=== PATIENT | male | born 1980 | race Caucasian/White ===

== ENCOUNTER 2017-03-23 12:58 | Inpatient (IN) | payer MEDICAID, OTHER ==
[~2017-03-23] VITALS: Ht 185.4 cm; Wt 147.9 kg
[~2017-03-23 12:58] MED LIST: FENO1TAB41; NOR10T
[2017-03-23 14:12] LABS: Basophils # (auto) 0 uL; Basophils % (auto) 0.4 % (0.0-2.0); Eosinophils # (auto) 0.1 uL; Hematocrit 44.8 % (41.0-53.0); Hemoglobin 14.3 g/dL (13.5-17.5); Mean Corpuscular Hemoglobin 28.3 pg (28.0-32.0); Mean Corpuscular Volume 88.4 fL (80.0-100.0); Monocytes # (auto) 0.9 uL; Monocytes % (auto) 7.8 % (0.0-12.0); Neutrophils # (auto) 8.9 uL; Neutrophils % (auto) 81.8 % (37.0-80.0); Nucleated Red Blood Cells % 0.1 %; Platelet Count (auto) 235 10^3/uL (140-450); Red Blood Cells 5.07 10^6/uL (4.5-5.90); Red Cell Distribution Width 14.3 % (11.8-14.3); White Blood Cell 10.9 10^3/uL (4.4-10.8)
[2017-03-23 14:25] LABS: Alanine Aminotransferase 36 U/L (16-61); Albumin 3.6 g/dL (3.4-5.0); Alkaline Phosphatase 69 U/L (45-117); Anion Gap 9 (5-15); Aspartate Aminotransferase 33 U/L (15-37); BUN/Creatinine Ratio 17.5; Bilirubin, Total 0.2 mg/dL (0.2-1.0); Blood Urea Nitrogen 70 mg/dL (7-18); Calcium 8.9 mg/dL (8.5-10.1); Carbon Dioxide 21 mmol/L (21-32); Chloride 101 mmol/L (98-107); GFR African American 22 mL/min; GFR Non-African American 18 mL/min; Glucose 142 mg/dL (74-106); Magnesium 2.6 mg/dL (1.6-2.6); Sodium 131 mmol/L (136-145); Total Protein 9.3 g/dL (6.4-8.2)
[2017-03-23 14:39] LABS: Potassium 6.7 mmol/L (3.5-5.1)
[2017-03-23] MEDS ORDERED: SODIUM CHLORIDE 0.9% 1,000 ML IV ONE (14:48)
[2017-03-23] MEDS ORDERED: ALBUTEROL SULF 2.5 MG/0.5ML(0.5%) NEB SOLN NEB ONE (15:00)
[2017-03-23] MEDS ORDERED: CALCIUM CHL 100MG/ML 1,000 MG in D5W 5% 100 ML IV ONE (15:00)
[2017-03-23] MEDS ORDERED: SODIUM BICARBONATE 8.4 % INJ 50ML VIAL IV ONE ×2 (15:00→23:00)
[2017-03-23] MEDS ORDERED: ONDANSETRON HCL 4 MG/2 ML VIAL ONE (19:30)
[2017-03-23] MEDS ORDERED: ONDANSETRON HCL 4 MG/2 ML VIAL IV ONE (19:45)
[2017-03-23] MEDS: SODIUM CHLORIDE 0.9% 1,000 ML IV SCH (22:26)
[2017-03-23] MEDS ORDERED: ONDANSETRON HCL 4 MG/2 ML VIAL IV PRN (22:30)
[2017-03-23] MEDS ORDERED: DEXTROSE (50%) 50ML SYRG IV PRN (22:30)
[2017-03-23] MEDS ORDERED: MORPHINE SULF INJ 2 MG/ML SYRINGE 1ML IV PRN (22:30)
[2017-03-23] MEDS ORDERED: TEMAZEPAM 15 MG CAP PO PRN (22:30)
[2017-03-23] MEDS ORDERED: ACETAMINOPHEN 325 MG TAB PO PRN (22:30)
[2017-03-23] MEDS ORDERED: NITROGLYCERIN 0.4 MG SL TAB SL PRN (22:30)
[2017-03-23] MEDS ORDERED: DEXTROSE (50%) 50ML SYRG IV ONE (23:00)
[2017-03-23] MEDS ORDERED: CALCIUM GLUC 4.65meq/50ml D5AE 50 ML IV ONE (23:00)
[2017-03-23] MEDS ORDERED: InsuLIN REG 1unit/0.01ml Soln (100units/ml) IV ONE (23:00)
[2017-03-23] MEDS ORDERED: SODIUM POLYSTYRENE SULF 15GM/60ML SUSP PO ONE (23:00)
[2017-03-23 23:09] LABS: Urine Bacteria FEW /hpf (None Seen); Urine Blood Negative /uL (Negative); Urine Hyaline Cast MOD /lpf (0 - 2); Urine Mucus FEW (None Seen); Urine WBC 2 /hpf (0 - 3)
[2017-03-24] MEDS: ACCU-CHEK COMFORT CURVE STRIP VI SCH ×4 (00:12→18:20)
[2017-03-24 04:14] LABS: Basophils # (auto) 0 uL; Basophils % (auto) 0.3 % (0.0-2.0); Eosinophils # (auto) 0.1 uL; Eosinophils % (auto) 1.7 % (0.0-7.0); Hematocrit 36.6 % (41.0-53.0); Hemoglobin 11.8 g/dL (13.5-17.5); Lymphocytes # (auto) 1.8 uL; Lymphocytes % (auto) 22.8 % (10.0-50.0); Mean Corpuscular Hemoglobin 28.1 pg (28.0-32.0); Mean Corpuscular Hgb Conc. 32.3 g/dL (32.0-36.0); Mean Corpuscular Volume 86.9 fL (80.0-100.0); Monocytes # (auto) 1.2 uL; Monocytes % (auto) 15.1 % (0.0-12.0); Neutrophils # (auto) 4.7 uL; Neutrophils % (auto) 60.1 % (37.0-80.0); Platelet Count (auto) 194 10^3/uL (140-450); Red Blood Cells 4.21 10^6/uL (4.5-5.90); Red Cell Distribution Width 14.4 % (11.8-14.3); White Blood Cell 7.8 10^3/uL (4.4-10.8)
[2017-03-24 04:24] LABS: Albumin 3.1 g/dL (3.4-5.0); BUN/Creatinine Ratio 16.8; Calcium 8.3 mg/dL (8.5-10.1)
[2017-03-24 04:34] LABS: Bilirubin, Total 0.2 mg/dL (0.2-1.0); Total Protein 7.9 g/dL (6.4-8.2)
[2017-03-24] MEDS ORDERED: ALBUTEROL SULF 2.5 MG/0.5ML(0.5%) NEB SOLN NEB ONE (05:15)
[2017-03-24] MEDS ORDERED: SODIUM POLYSTYRENE SULF 15GM/60ML SUSP PO ONE (05:15)
[2017-03-24] MEDS ORDERED: CALCIUM GLUC 4.65meq/50ml D5AE 50 ML IV ONE (05:15)
[2017-03-24] MEDS ORDERED: InsuLIN REG 1unit/0.01ml Soln (100units/ml) IV ONE (05:15)
[2017-03-24] MEDS ORDERED: DEXTROSE (50%) 50ML SYRG IV ONE (05:15)
[2017-03-24] MEDS ORDERED: SODIUM BICARBONATE 8.4 % INJ 50ML VIAL IV ONE (05:15)
[2017-03-24] MEDS: CLINDAMYCIN 600MG IV 50 ML IV SCH ×3 (06:00→21:41)
[2017-03-24] MEDS: InsuLIN REG 1unit/0.01ml Soln (100units/ml) SC SCH ×4 (06:00→18:21)
[2017-03-24] MEDS ORDERED: GEMF600T3 PO (08:29)
[2017-03-24] MEDS ORDERED: INSLISPI SC (08:29)
[2017-03-24] MEDS ORDERED: CARI-277 PO (08:29)
[2017-03-24] MEDS ORDERED: LISI-646 PO (08:29)
[2017-03-24] MEDS ORDERED: PREG150C PO (08:29)
[2017-03-24] MEDS ORDERED: HYDR12.56 PO (08:29)
[2017-03-24] MEDS ORDERED: INSU1INJ13 SC (08:29)
[2017-03-24] MEDS ORDERED: PANT40TA2 PO (08:29)
[2017-03-24] MEDS: PANTOPRAZOLE 40 MG TAB PO SCH (08:41)
[2017-03-24] MEDS: HEPARIN SODIUM (PORCINE) 5000 UNITS/ML 1ML VIAL SC SCH ×2 (08:43→22:00)
[2017-03-24] MEDS: HYDROcodone-ACET 5/325MG TAB PO PRN ×2 (08:44→21:54)
[2017-03-24] MEDS ORDERED: SODIUM CHLORIDE 0.9% 2,000 ML IV ONE ×2 (09:45→16:15)
[2017-03-24] MEDS: SODIUM CHLORIDE 0.9% 1,000 ML IV SCH (15:05)
[2017-03-24 18:05] VITALS: BP 96/56
[2017-03-24 18:51] LABS: BUN/Creatinine Ratio 18.5; Calcium 7.9 mg/dL (8.5-10.1); Potassium 4.9 mmol/L (3.5-5.1)
[2017-03-24] MEDS ORDERED: HEPARIN SODIUM (PORCINE) 5000 UNITS/ML 1ML VIAL ONE (21:24)
[2017-03-24 21:30] VITALS: BP 126/65
[2017-03-25] MEDS: InsuLIN REG 1unit/0.01ml Soln (100units/ml) SC SCH ×4 (00:13→17:30)
[2017-03-25] MEDS: ACCU-CHEK COMFORT CURVE STRIP VI SCH ×4 (00:13→17:30)
[2017-03-25] MEDS: SODIUM CHLORIDE 0.9% 1,000 ML IV SCH ×2 (01:06→12:20)
[2017-03-25 05:00] VITALS: BP 110/66
[2017-03-25] MEDS: CLINDAMYCIN 600MG IV 50 ML IV SCH ×2 (05:08→15:13)
[2017-03-25 07:12] LABS: Basophils # (auto) 0.1 uL; Eosinophils # (auto) 0.3 uL; Eosinophils % (auto) 5.7 % (0.0-7.0); Hematocrit 35.9 % (41.0-53.0); Hemoglobin 11.8 g/dL (13.5-17.5); Lymphocytes # (auto) 1.8 uL; Lymphocytes % (auto) 31.1 % (10.0-50.0); Mean Corpuscular Hemoglobin 28.3 pg (28.0-32.0); Mean Corpuscular Volume 85.8 fL (80.0-100.0); Monocytes # (auto) 0.7 uL; Monocytes % (auto) 11.6 % (0.0-12.0); Neutrophils # (auto) 2.9 uL; Neutrophils % (auto) 50.6 % (37.0-80.0); Platelet Count (auto) 192 10^3/uL (140-450); Red Blood Cells 4.18 10^6/uL (4.5-5.90); White Blood Cell 5.7 10^3/uL (4.4-10.8)
[2017-03-25 07:21] LABS: BUN/Creatinine Ratio 20.6; Calcium 8.3 mg/dL (8.5-10.1); Phosphorus 3.6 mg/dL (2.5-4.90); Potassium 4.2 mmol/L (3.5-5.1); Uric Acid 6.8 mg/dL (3.5-7.2)
[2017-03-25 07:58] LABS: Potassium 6.1 mmol/L (3.5-5.1)
[2017-03-25 09:00] VITALS: BP 139/83
[2017-03-25] MEDS: PANTOPRAZOLE 40 MG TAB PO SCH (10:03)
[2017-03-25] MEDS: HEPARIN SODIUM (PORCINE) 5000 UNITS/ML 1ML VIAL SC SCH (10:05)
[2017-03-25] MEDS: HYDROcodone-ACET 5/325MG TAB PO PRN (10:10)
[2017-03-25 13:00] VITALS: BP 131/84
[2017-03-25 17:00] VITALS: BP 128/75
== END 2017-03-25 20:18 | disposition home or self-care (01) | DRG 720 ==
LOC: EDBD 12:58 → ER 12:58 → TELE 12:59 → TELE-CENTR 03-24 14:10
PROVIDERS: ADMIT Nurse Practitioner; ATTEND Internal Medicine
DX: A41.9 Sepsis, unspecified organism (principal); N17.0 Acute kidney failure with tubular necrosis; E11.21 Type 2 diabetes mellitus with diabetic nephropathy; L89.894 Pressure ulcer of other site, stage 4; E11.40 Type 2 diabetes mellitus with diabetic neuropathy, unspecified; E11.22 Type 2 diabetes mellitus with diabetic chronic kidney disease; E11.51 Type 2 diabetes mellitus with diabetic peripheral angiopathy without gangrene; E11.621 Type 2 diabetes mellitus with foot ulcer; E87.5 Hyperkalemia; E66.01 Morbid (severe) obesity due to excess calories; E78.5 Hyperlipidemia, unspecified; I48.2 Chronic atrial fibrillation; N18.9 Chronic kidney disease, unspecified; Z88.5 Allergy status to narcotic agent; Z79.4 Long term (current) use of insulin; Z68.41 Body mass index [BMI] 40.0-44.9, adult
CPT/HCPCS: 36415; 70450; 71045; 73700; 76775; 80048; 80053; 81001; 82550; 82962; 83735; 84100; 84132; 84484; 84550; 85025; 86160; 87077; 87081; 87186; 87205; 93005; 94640; 94644; 94761; 96365; 96375; 96376; J0610; J1815; J2405; J3490; J7060

== ENCOUNTER 2018-11-21 10:52 | Emergency (ER) | payer MEDICAID ==
[~2018-11-21] VITALS: Ht 185.4 cm; Wt 140.6 kg
[~2018-11-21 10:52] MED LIST changes: +CARI-277 PO; -FENO1TAB41; +GEMF600T7 PO; +HYDR12.56 PO; +INSLISPI SC; +INSU1INJ13 SC; +LISI-646 PO; +PANT40TA2 PO; +PREG150C PO
[2018-11-21 11:31] LABS: Basophils # (auto) 0.3 uL; Basophils % (auto) 2.5 % (0.0-2.0); Eosinophils # (auto) 0.3 uL; Eosinophils % (auto) 2.9 % (0.0-7.0); Hematocrit 42.3 % (41.0-53.0); Lymphocytes # (auto) 2.1 uL; Lymphocytes % (auto) 18.6 % (10.0-50.0); Mean Corpuscular Hemoglobin 28.8 pg (28.0-32.0); Mean Corpuscular Hgb Conc. 33.2 g/dL (32.0-36.0); Mean Corpuscular Volume 86.8 fL (80.0-100.0); Monocytes # (auto) 0.7 uL; Monocytes % (auto) 6.6 % (0.0-12.0); Neutrophils # (auto) 7.7 uL; Neutrophils % (auto) 69.4 % (37.0-80.0); Platelet Count (auto) 347 10^3/uL (140-450); Red Blood Cells 4.87 10^6/uL (4.5-5.90); Red Cell Distribution Width 14.2 % (11.8-14.3); White Blood Cell 11.2 10^3/uL (4.4-10.8)
[2018-11-21 11:47] LABS: Alanine Aminotransferase 27 U/L (16-61); Albumin 3.1 g/dL (3.4-5.0); Anion Gap 10 (5-15); Blood Urea Nitrogen 37 mg/dL (7-18); Calcium 8.4 mg/dL (8.5-10.1); Carbon Dioxide 20 mmol/L (21-32); Chloride 109 mmol/L (98-107); Glucose 140 mg/dL (74-106); Sodium 139 mmol/L (136-145)
[2018-11-21 11:51] LABS: Alkaline Phosphatase 70 U/L (45-117); Aspartate Aminotransferase 20 U/L (15-37); BUN/Creatinine Ratio 15.5; Bilirubin, Total 0.2 mg/dL (0.2-1.0); GFR African American 40 mL/min; GFR Non-African American 33 mL/min; Total Protein 7.8 g/dL (6.4-8.2)
[2018-11-21] MEDS ORDERED: SODIUM CHLORIDE 0.9% 1,000 ML IVB ONE (13:12)
[2018-11-21 16:00] VITALS: BP 158/74
== END 2018-11-21 16:16 | disposition home or self-care (01) ==
LOC: EDBD 10:52 → ER 10:52
DX: R42 Dizziness and giddiness (principal); E11.22 Type 2 diabetes mellitus with diabetic chronic kidney disease; N18.3 Chronic kidney disease, stage 3 (moderate); E78.5 Hyperlipidemia, unspecified
CPT/HCPCS: 36415; 70450; 71046; 80053; 84484; 85025; 93005; 94761; 96360; 99284; J7030

== ENCOUNTER 2019-07-14 23:16 | Inpatient (IN) | payer MEDICAID ==
[~2019-07-14] VITALS: Ht 185.4 cm; Wt 114.4 kg
[2019-07-14] MEDS ORDERED: ACCU-CHEK COMFORT CURVE STRIP VI ONE (23:45)
[2019-07-15] MEDS ORDERED: ACETAMINOPHEN 325 MG TAB PO ONE (01:45)
[2019-07-15] MEDS ORDERED: ONDANSETRON HCL 4 MG/2 ML VIAL IV ONE (01:45)
[2019-07-15] MEDS ORDERED: MORPHINE SULFATE 4 MG/ML SYR/VIAL IV ONE (01:45)
[2019-07-15] MEDS ORDERED: levoFLOXacin 750MG 150 ML IV ONE (01:45)
[2019-07-15] MEDS ORDERED: SODIUM CHLORIDE 0.9% 1,000 ML IV ONE (01:45)
[2019-07-15 01:48] LABS: Basophils # (auto) 0.1 10 ^3/uL (0-0.2); Basophils % (auto) 0.7 % (0.0-2.0); Eosinophils # (auto) 0.1 10 ^3/uL (0-0.8); Eosinophils % (auto) 0.6 % (0.0-7.0); Lymphocytes # (auto) 1.8 10 ^3/uL (0.4-5.4); Lymphocytes % (auto) 12.6 % (10.0-50.0); Mean Corpuscular Hemoglobin 29.1 pg (28.0-32.0); Mean Corpuscular Hgb Conc. 33.3 g/dL (32.0-36.0); Mean Corpuscular Volume 87.3 fL (80.0-100.0); Monocytes # (auto) 1.4 10 ^3/uL (0-1.3); Monocytes % (auto) 9.9 % (0.0-12.0); Neutrophils # (auto) 11.1 10 ^3/uL (1.6-8.6); Neutrophils % (auto) 76.2 % (37.0-80.0); Platelet Count (auto) 286 10^3/uL (140-450); Red Blood Cells 4.46 10^6/uL (4.5-5.90); Red Cell Distribution Width 12.9 % (11.8-14.3); White Blood Cell 14.6 10^3/uL (4.4-10.8)
[2019-07-15 02:05] LABS: INR 1.03 (0.9-1.15); Partial Thromboplastin Time 31.9 sec (23.64-32.05)
[2019-07-15 02:07] LABS: Albumin 2.8 g/dL (3.4-5.0); Calcium 8.7 mg/dL (8.5-10.1); Potassium 4.2 mmol/L (3.5-5.1)
[2019-07-15 02:16] LABS: BUN/Creatinine Ratio 18.1
[2019-07-15 02:27] LABS: Bilirubin, Total 0.5 mg/dL (0.2-1.0); Total Protein 7.9 g/dL (6.4-8.2)
[2019-07-15] MEDS ORDERED: HYDROmorphone HCL 2 MG/ML VL IV ONE (05:00)
[2019-07-15] MEDS ORDERED: SODIUM CHLORIDE 0.9% 1,000 ML IV SCH (05:25)
[2019-07-15] MEDS ORDERED: CARISOPRODOL 350 MG TAB PO PRN (05:30)
[2019-07-15 05:52] VITALS: BP 125/76
[2019-07-15 05:56] LABS: Magnesium 2.4 mg/dL (1.6-2.6)
[2019-07-15] MEDS ORDERED: MORPHINE SULF INJ 2 MG/ML SYRINGE 1ML IV PRN (06:00)
[2019-07-15] MEDS ORDERED: NITROGLYCERIN 0.4 MG SL TAB SL PRN (06:00)
[2019-07-15] MEDS ORDERED: ALBUTEROL SULF HFA 90MCG INH 200DOSE IN SCH (06:00)
[2019-07-15 06:05] LABS: CRP High Sensitivity 16.5 mg/dL (< 0.3)
[2019-07-15 07:00] VITALS: BP 127/76
[2019-07-15 08:00] VITALS: BP 121/76
[2019-07-15] MEDS ORDERED: ATOR10TA52 PO (09:17)
[2019-07-15] MEDS ORDERED: CITA10SO6 PO (09:17)
[2019-07-15] MEDS ORDERED: MORP1TAB12 PO (09:17)
[2019-07-15] MEDS ORDERED: INSU100I2 SC (09:17)
[2019-07-15] MEDS ORDERED: LISINOPRIL 5 MG TAB PO SCH (10:00)
[2019-07-15] MEDS ORDERED: HCTZ 25 MG TAB PO SCH (10:00)
[2019-07-15] MEDS: AZITHROMYCIN 500MG/ 250ML 250 ML IV SCH (10:10)
[2019-07-15] MEDS: ASCORBIC ACID 1,000 MG TAB PO SCH (10:11)
[2019-07-15] MEDS: PANTOPRAZOLE 40 MG TAB PO SCH (10:11)
[2019-07-15] MEDS: ZINC SULFATE 220mg CAP or TAB PO SCH (10:11)
[2019-07-15] MEDS: CHOLECALCIFEROL (VITD3) 1,000IU=25mCg TAB PO SCH (10:11)
[2019-07-15] MEDS: GEMFIBROZIL 600 MG TAB PO SCH ×2 (10:11→21:55)
[2019-07-15] MEDS: HYDROcodone-ACET 10/325MG TAB PO PRN ×2 (11:40→17:51)
[2019-07-15 13:00] VITALS: BP 116/76
[2019-07-15] MEDS ORDERED: DEXTROSE (50%) 50ML SYRG IV PRN (14:30)
[2019-07-15] MEDS ORDERED: VANCOMYCIN PER PHARMACY 0 MG IV SCH (14:30)
[2019-07-15] MEDS: SODIUM CHLORIDE 0.9% 1,000 ML IV SCH (14:40)
[2019-07-15] MEDS: VANCOMYCIN 1GM/250ML 250 ML IV SCH (16:52)
[2019-07-15] MEDS: ACCU-CHEK COMFORT CURVE STRIP VI SCH ×2 (16:53→22:16)
[2019-07-15] MEDS: InsuLIN REG 1unit/0.01ml Soln (100units/ml) SC SCH ×2 (16:53→22:37)
[2019-07-15 17:00] VITALS: BP_SYST 118; BP_SYST 135; BP_DIAS 83; BP_DIAS 87
[2019-07-15 20:00] VITALS: BP 114/68
[2019-07-15] MEDS: PIPERACILLIN-TAZOB 3.375GM 100 ML IV SCH (21:55)
[2019-07-15] MEDS: MORPHINE SULF 15mg ER tab PO SCH (22:00)
[2019-07-16] VITALS: BP 142/80
[2019-07-16] MEDS: SODIUM CHLORIDE 0.9% 1,000 ML IV SCH ×2 (03:22→18:01)
[2019-07-16 04:00] VITALS: BP 129/67
[2019-07-16] MEDS: VANCOMYCIN 1GM/250ML 250 ML IV SCH ×2 (04:37→17:58)
[2019-07-16] MEDS: PIPERACILLIN-TAZOB 3.375GM 100 ML IV SCH ×3 (05:55→22:19)
[2019-07-16] MEDS: InsuLIN REG 1unit/0.01ml Soln (100units/ml) SC SCH ×3 (06:16→18:02)
[2019-07-16] MEDS: ACCU-CHEK COMFORT CURVE STRIP VI SCH ×4 (06:25→22:19)
[2019-07-16 07:07] LABS: Basophils # (auto) 0 10 ^3/uL (0-0.2); Basophils % (auto) 0.4 % (0.0-2.0); Eosinophils # (auto) 0.3 10 ^3/uL (0-0.8); Eosinophils % (auto) 2.2 % (0.0-7.0); Hematocrit 36.7 % (41.0-53.0); Hemoglobin 12.1 g/dL (13.5-17.5); Lymphocytes # (auto) 1.2 10 ^3/uL (0.4-5.4); Lymphocytes % (auto) 9.2 % (10.0-50.0); Mean Corpuscular Hemoglobin 28.8 pg (28.0-32.0); Mean Corpuscular Hgb Conc. 33.1 g/dL (32.0-36.0); Monocytes # (auto) 1.1 10 ^3/uL (0-1.3); Monocytes % (auto) 8.4 % (0.0-12.0); Neutrophils # (auto) 10.2 10 ^3/uL (1.6-8.6); Neutrophils % (auto) 79.8 % (37.0-80.0); Nucleated Red Blood Cells % 0.1 %; Platelet Count (auto) 289 10^3/uL (140-450); Red Blood Cells 4.22 10^6/uL (4.5-5.90); Red Cell Distribution Width 13.3 % (11.8-14.3); White Blood Cell 12.8 10^3/uL (4.4-10.8)
[2019-07-16 07:28] LABS: Albumin 2.2 g/dL (3.4-5.0); BUN/Creatinine Ratio 18.5; Calcium 8.3 mg/dL (8.5-10.1); Potassium 4.1 mmol/L (3.5-5.1)
[2019-07-16 07:31] LABS: Bilirubin, Total 0.5 mg/dL (0.2-1.0); Total Protein 6.9 g/dL (6.4-8.2)
[2019-07-16] MEDS: GEMFIBROZIL 600 MG TAB PO SCH (09:41)
[2019-07-16] MEDS: ZINC SULFATE 220mg CAP or TAB PO SCH (09:41)
[2019-07-16] MEDS: AZITHROMYCIN 500MG/ 250ML 250 ML IV SCH (09:41)
[2019-07-16] MEDS: CHOLECALCIFEROL (VITD3) 1,000IU=25mCg TAB PO SCH (09:42)
[2019-07-16] MEDS: ASCORBIC ACID 1,000 MG TAB PO SCH (09:42)
[2019-07-16] MEDS: PANTOPRAZOLE 40 MG TAB PO SCH (09:42)
[2019-07-16] MEDS: MORPHINE SULF 15mg ER tab PO SCH ×2 (09:42→22:19)
[2019-07-16 12:53] VITALS: BP 115/68
[2019-07-16 15:56] LABS: Urine Amorphous Crystal FEW /hpf (None Seen); Urine Bacteria NONE SEEN /hpf (None Seen); Urine Blood 1+ /uL (Negative); Urine Specific Gravity 1.024 (1.001-1.035); Urine WBC 7 /hpf (0 - 3)
[2019-07-16 17:00] VITALS: BP 126/71
[2019-07-16] MEDS: HYDROcodone-ACET 10/325MG TAB PO PRN (17:58)
[2019-07-16 22:00] VITALS: BP 135/71
[2019-07-17] MEDS: InsuLIN REG 1unit/0.01ml Soln (100units/ml) SC SCH ×5 (00:33→22:15)
[2019-07-17 05:00] VITALS: BP 106/55
[2019-07-17] MEDS: VANCOMYCIN 1GM/250ML 250 ML IV SCH (05:10)
[2019-07-17 06:05] LABS: Basophils # (auto) 0.2 10 ^3/uL (0-0.2); Basophils % (auto) 1.1 % (0.0-2.0); Eosinophils # (auto) 0.5 10 ^3/uL (0-0.8); Eosinophils % (auto) 3.3 % (0.0-7.0); Hematocrit 36.5 % (41.0-53.0); Hemoglobin 12.1 g/dL (13.5-17.5); Lymphocytes # (auto) 1.8 10 ^3/uL (0.4-5.4); Lymphocytes % (auto) 12.9 % (10.0-50.0); Mean Corpuscular Hemoglobin 29.4 pg (28.0-32.0); Mean Corpuscular Hgb Conc. 33.2 g/dL (32.0-36.0); Mean Corpuscular Volume 88.7 fL (80.0-100.0); Monocytes # (auto) 1.2 10 ^3/uL (0-1.3); Monocytes % (auto) 8.7 % (0.0-12.0); Neutrophils # (auto) 10.1 10 ^3/uL (1.6-8.6); Platelet Count (auto) 350 10^3/uL (140-450); Red Blood Cells 4.11 10^6/uL (4.5-5.90); Red Cell Distribution Width 13.2 % (11.8-14.3); White Blood Cell 13.7 10^3/uL (4.4-10.8)
[2019-07-17 06:28] LABS: BUN/Creatinine Ratio 15.5; Calcium 8.6 mg/dL (8.5-10.1); Potassium 3.9 mmol/L (3.5-5.1)
[2019-07-17] MEDS: ACCU-CHEK COMFORT CURVE STRIP VI SCH ×4 (06:30→22:14)
[2019-07-17] MEDS: PIPERACILLIN-TAZOB 3.375GM 100 ML IV SCH ×3 (06:30→22:00)
[2019-07-17] MEDS: SODIUM CHLORIDE 0.9% 1,000 ML IV SCH ×2 (06:31→20:12)
[2019-07-17 08:09] VITALS: BP 125/78
[2019-07-17 08:50] VITALS: BP 125/78
[2019-07-17] MEDS: PANTOPRAZOLE 40 MG TAB PO SCH (09:36)
[2019-07-17] MEDS: MORPHINE SULF 15mg ER tab PO SCH ×2 (09:37→22:13)
[2019-07-17] MEDS: ZINC SULFATE 220mg CAP or TAB PO SCH (09:37)
[2019-07-17] MEDS: ASCORBIC ACID 1,000 MG TAB PO SCH (09:37)
[2019-07-17 13:00] VITALS: BP 123/75
[2019-07-17 17:00] VITALS: BP 134/76
[2019-07-17] MEDS: HYDROcodone-ACET 10/325MG TAB PO PRN (18:06)
[2019-07-17 22:00] VITALS: BP 141/84
[2019-07-17] MEDS: DAKINS QUARTER STR 0.125% (NaHypochlorite) 473 ML TOPICAL SOL TOP SCH (22:00)
[2019-07-17] MEDS: LINEZOLID 600MG/300ML 300 ML IV SCH (22:12)
[2019-07-18 05:00] VITALS: BP 144/88
[2019-07-18] MEDS: PIPERACILLIN-TAZOB 3.375GM 100 ML IV SCH ×3 (06:08→22:00)
[2019-07-18] MEDS: ACCU-CHEK COMFORT CURVE STRIP VI SCH ×4 (06:17→22:00)
[2019-07-18] MEDS: InsuLIN REG 1unit/0.01ml Soln (100units/ml) SC SCH ×4 (06:18→22:02)
[2019-07-18 06:33] LABS: Basophils # (auto) 0.1 10 ^3/uL (0-0.2); Basophils % (auto) 1.3 % (0.0-2.0); Eosinophils # (auto) 0.6 10 ^3/uL (0-0.8); Eosinophils % (auto) 5.4 % (0.0-7.0); Hematocrit 35.6 % (41.0-53.0); Hemoglobin 11.5 g/dL (13.5-17.5); Lymphocytes # (auto) 1.4 10 ^3/uL (0.4-5.4); Mean Corpuscular Hemoglobin 28.6 pg (28.0-32.0); Mean Corpuscular Hgb Conc. 32.4 g/dL (32.0-36.0); Mean Corpuscular Volume 88.4 fL (80.0-100.0); Monocytes # (auto) 0.8 10 ^3/uL (0-1.3); Monocytes % (auto) 7.2 % (0.0-12.0); Neutrophils % (auto) 73.1 % (37.0-80.0); Platelet Count (auto) 364 10^3/uL (140-450); Red Blood Cells 4.03 10^6/uL (4.5-5.90); Red Cell Distribution Width 13.2 % (11.8-14.3)
[2019-07-18 06:53] LABS: Calcium 8.3 mg/dL (8.5-10.1); Magnesium 2.4 mg/dL (1.6-2.6)
[2019-07-18 06:57] LABS: BUN/Creatinine Ratio 16.5
[2019-07-18 08:17] VITALS: BP 122/73
[2019-07-18 08:25] VITALS: BP 122/73
[2019-07-18] MEDS: SODIUM CHLORIDE 0.9% 1,000 ML IV SCH ×2 (09:14→13:10)
[2019-07-18] MEDS: DAKINS QUARTER STR 0.125% (NaHypochlorite) 473 ML TOPICAL SOL TOP SCH ×2 (10:00→22:00)
[2019-07-18] MEDS: MORPHINE SULF 15mg ER tab PO SCH ×2 (10:28→22:00)
[2019-07-18] MEDS: LINEZOLID 600MG/300ML 300 ML IV SCH ×2 (10:28→22:00)
[2019-07-18] MEDS: ASCORBIC ACID 1,000 MG TAB PO SCH (10:29)
[2019-07-18] MEDS: PANTOPRAZOLE 40 MG TAB PO SCH (10:29)
[2019-07-18 12:30] VITALS: BP 137/77
[2019-07-18 17:22] VITALS: BP 143/86
[2019-07-18 22:00] VITALS: BP 140/72
[2019-07-19] MEDS: SODIUM CHLORIDE 0.9% 1,000 ML IV SCH ×2 (04:39→21:50)
[2019-07-19 05:16] VITALS: BP 137/77
[2019-07-19 05:50] LABS: Basophils # (auto) 0.1 10 ^3/uL (0-0.2); Basophils % (auto) 0.8 % (0.0-2.0); Eosinophils # (auto) 0.5 10 ^3/uL (0-0.8); Eosinophils % (auto) 4.7 % (0.0-7.0); Hematocrit 40.1 % (41.0-53.0); Hemoglobin 12.7 g/dL (13.5-17.5); Lymphocytes # (auto) 1.9 10 ^3/uL (0.4-5.4); Lymphocytes % (auto) 17.7 % (10.0-50.0); Mean Corpuscular Hemoglobin 29.2 pg (28.0-32.0); Mean Corpuscular Hgb Conc. 31.7 g/dL (32.0-36.0); Mean Corpuscular Volume 92.1 fL (80.0-100.0); Monocytes # (auto) 0.6 10 ^3/uL (0-1.3); Monocytes % (auto) 6.1 % (0.0-12.0); Neutrophils # (auto) 7.4 10 ^3/uL (1.6-8.6); Neutrophils % (auto) 70.7 % (37.0-80.0); Platelet Count (auto) 393 10^3/uL (140-450); Red Blood Cells 4.35 10^6/uL (4.5-5.90); Red Cell Distribution Width 13.3 % (11.8-14.3); White Blood Cell 10.5 10^3/uL (4.4-10.8)
[2019-07-19 05:59] LABS: Albumin 2.2 g/dL (3.4-5.0); Potassium 4.2 mmol/L (3.5-5.1)
[2019-07-19 06:03] LABS: BUN/Creatinine Ratio 11.1; Bilirubin, Total 0.3 mg/dL (0.2-1.0); Total Protein 6.9 g/dL (6.4-8.2)
[2019-07-19] MEDS: PIPERACILLIN-TAZOB 3.375GM 100 ML IV SCH (06:11)
[2019-07-19] MEDS: ACCU-CHEK COMFORT CURVE STRIP VI SCH ×4 (06:40→22:00)
[2019-07-19] MEDS: InsuLIN REG 1unit/0.01ml Soln (100units/ml) SC SCH ×4 (06:42→22:00)
[2019-07-19 09:00] VITALS: BP 144/81
[2019-07-19] MEDS: LINEZOLID 600MG/300ML 300 ML IV SCH ×2 (09:58→22:23)
[2019-07-19] MEDS: MORPHINE SULF 15mg ER tab PO SCH ×2 (09:58→22:00)
[2019-07-19] MEDS: PANTOPRAZOLE 40 MG TAB PO SCH (09:58)
[2019-07-19] MEDS: DAKINS QUARTER STR 0.125% (NaHypochlorite) 473 ML TOPICAL SOL TOP SCH ×2 (09:59→22:00)
[2019-07-19] MEDS: ASCORBIC ACID 1,000 MG TAB PO SCH (09:59)
[2019-07-19] MEDS ORDERED: LIDOCAINE 1% HCL (LOCAL ANESTH.) INJ 20ML MDV ONE (12:24)
[2019-07-19] MEDS ORDERED: BUPIVACAINE HCL 50 ML ONE (12:25)
[2019-07-19] MEDS ORDERED: METOCLOPRAMIDE HCL 5MG/ml INJ 2ml VIAL IV PRN (12:30)
[2019-07-19] MEDS ORDERED: MORPHINE SULFATE 4 MG/ML SYR/VIAL IV PRN (12:30)
[2019-07-19] MEDS ORDERED: ACCU-CHEK COMFORT CURVE STRIP VI ONE (12:30)
[2019-07-19] MEDS ORDERED: fentaNYL CITRATE 100 MCG/2 ML VL IV PRN (12:30)
[2019-07-19] MEDS ORDERED: PROPOFOL 10 MG/ML 20 ML IV ONE (12:33)
[2019-07-19] MEDS ORDERED: fentaNYL CITRATE 100 MCG/2 ML VL ONE (12:33)
[2019-07-19] MEDS ORDERED: MIDAZOLAM HCL 1MG/1ML-2 ML VIAL ONE (12:33)
[2019-07-19] MEDS ORDERED: SODIUM CHLORIDE LOCK 10 ML ONE (12:33)
[2019-07-19] MEDS ORDERED: ONDANSETRON HCL 4 MG/2 ML VIAL ONE (12:33)
[2019-07-19] MEDS ORDERED: ceFAZolin 1GM/50ML 100 ML IV ONE (12:46)
[2019-07-19 16:45] VITALS: BP 147/52
[2019-07-19] MEDS: MEPERIDINE HCL (25 MG/ML) 1ML VIAL IM PRN ×2 (17:55→22:15)
[2019-07-19 22:12] VITALS: BP 150/87
[2019-07-20] MEDS: MEPERIDINE HCL (25 MG/ML) 1ML VIAL IM PRN ×6 (02:10→23:49)
[2019-07-20 05:06] VITALS: BP 159/94
[2019-07-20 06:04] LABS: Basophils # (auto) 0.1 10 ^3/uL (0-0.2); Basophils % (auto) 1.2 % (0.0-2.0); Eosinophils # (auto) 0.5 10 ^3/uL (0-0.8); Eosinophils % (auto) 6.5 % (0.0-7.0); Hematocrit 37.1 % (41.0-53.0); Hemoglobin 12.4 g/dL (13.5-17.5); Lymphocytes # (auto) 1.7 10 ^3/uL (0.4-5.4); Lymphocytes % (auto) 20.7 % (10.0-50.0); Mean Corpuscular Hemoglobin 29.2 pg (28.0-32.0); Mean Corpuscular Hgb Conc. 33.5 g/dL (32.0-36.0); Mean Corpuscular Volume 86.9 fL (80.0-100.0); Monocytes # (auto) 0.6 10 ^3/uL (0-1.3); Monocytes % (auto) 7.4 % (0.0-12.0); Neutrophils # (auto) 5.2 10 ^3/uL (1.6-8.6); Neutrophils % (auto) 64.2 % (37.0-80.0); Nucleated Red Blood Cells % 0.1 %; Platelet Count (auto) 409 10^3/uL (140-450); Red Blood Cells 4.27 10^6/uL (4.5-5.90); Red Cell Distribution Width 12.7 % (11.8-14.3)
[2019-07-20 06:10] LABS: Potassium 3.8 mmol/L (3.5-5.1)
[2019-07-20 06:14] LABS: BUN/Creatinine Ratio 8.9; Calcium 8.5 mg/dL (8.5-10.1)
[2019-07-20] MEDS: InsuLIN REG 1unit/0.01ml Soln (100units/ml) SC SCH ×4 (06:35→22:00)
[2019-07-20] MEDS: ACCU-CHEK COMFORT CURVE STRIP VI SCH ×4 (06:35→22:22)
[2019-07-20 09:00] VITALS: BP 164/97
[2019-07-20] MEDS: PANTOPRAZOLE 40 MG TAB PO SCH (09:37)
[2019-07-20] MEDS: MORPHINE SULF 15mg ER tab PO SCH ×2 (09:37→22:22)
[2019-07-20] MEDS: ASCORBIC ACID 1,000 MG TAB PO SCH (09:38)
[2019-07-20] MEDS: DAKINS QUARTER STR 0.125% (NaHypochlorite) 473 ML TOPICAL SOL TOP SCH ×2 (09:38→22:00)
[2019-07-20] MEDS: LINEZOLID 600MG/300ML 300 ML IV SCH ×2 (09:39→22:20)
[2019-07-20 13:00] VITALS: BP 139/94
[2019-07-20] MEDS ORDERED: LINE1TAB6 PO (14:04)
[2019-07-20 17:00] VITALS: BP 157/95
[2019-07-20 22:00] VITALS: BP 168/90
[2019-07-20] MEDS ORDERED: hydrALAZINE HCL 20 MG/ML VL IV ONE (22:45)
[2019-07-21] MEDS: MEPERIDINE HCL (25 MG/ML) 1ML VIAL IM PRN ×3 (04:43→12:57)
[2019-07-21 05:21] VITALS: BP 146/89
[2019-07-21] MEDS: ACCU-CHEK COMFORT CURVE STRIP VI SCH ×2 (06:40→12:09)
[2019-07-21] MEDS: InsuLIN REG 1unit/0.01ml Soln (100units/ml) SC SCH ×2 (06:40→11:30)
[2019-07-21] MEDS: LINEZOLID 600MG/300ML 300 ML IV SCH (08:44)
[2019-07-21] MEDS: PANTOPRAZOLE 40 MG TAB PO SCH (08:44)
[2019-07-21] MEDS: MORPHINE SULF 15mg ER tab PO SCH (08:44)
[2019-07-21] MEDS: DAKINS QUARTER STR 0.125% (NaHypochlorite) 473 ML TOPICAL SOL TOP SCH (08:44)
[2019-07-21] MEDS: ASCORBIC ACID 1,000 MG TAB PO SCH (08:44)
[2019-07-21 09:00] VITALS: BP 146/88
[2019-07-21 11:18] VITALS: BP 125/70
[2019-07-21 13:00] VITALS: BP 157/92
== END 2019-07-21 13:35 | disposition home health service (06) | DRG 710 ==
LOC: EDBD 23:16 → ER 23:17 → TELE 23:18 → TELE-EAST 07-15 07:19 → TELE-CENTR 07-16 19:40 → CENTRAL 07-19 16:44
PROVIDERS: ADMIT Nurse Practitioner; ATTEND Internal Medicine
PROC: 0J9Q0ZZ Drainage of Right Foot Subcutaneous Tissue and Fascia, Open Approach (ICD-10-PCS; principal; 2019-07-17)
DX: A41.02 Sepsis due to Methicillin resistant Staphylococcus aureus (principal); N17.0 Acute kidney failure with tubular necrosis; J44.1 Chronic obstructive pulmonary disease with (acute) exacerbation; J45.901 Unspecified asthma with (acute) exacerbation; E87.1 Hypo-osmolality and hyponatremia; E11.22 Type 2 diabetes mellitus with diabetic chronic kidney disease; E11.42 Type 2 diabetes mellitus with diabetic polyneuropathy; E11.621 Type 2 diabetes mellitus with foot ulcer; E11.65 Type 2 diabetes mellitus with hyperglycemia; N18.3 Chronic kidney disease, stage 3 (moderate); I12.9 Hypertensive chronic kidney disease with stage 1 through stage 4 chronic kidney disease, or unspecified chronic kidney disease; D72.829 Elevated white blood cell count, unspecified; L02.611 Cutaneous abscess of right foot; E66.9 Obesity, unspecified; N28.9 Disorder of kidney and ureter, unspecified; E78.5 Hyperlipidemia, unspecified; M54.9 Dorsalgia, unspecified; G89.29 Other chronic pain; E11.622 Type 2 diabetes mellitus with other skin ulcer; Z83.3 Family history of diabetes mellitus; Z82.49 Family history of ischemic heart disease and other diseases of the circulatory system; Z82.3 Family history of stroke; Z79.899 Other long term (current) drug therapy; Z79.4 Long term (current) use of insulin; Z03.818 Encounter for observation for suspected exposure to other biological agents ruled out; L97.519 Non-pressure chronic ulcer of other part of right foot with unspecified severity; L03.115 Cellulitis of right lower limb; Z68.34 Body mass index [BMI] 34.0-34.9, adult
CPT/HCPCS: 36415; 71045; 73700; 73718; 80048; 80053; 80202; 81001; 82728; 82962; 83036; 83605; 83615; 83735; 84443; 85025; 85379; 85610; 85652; 85730; 86141; 87040; 87070; 87075; 87077; 87147; 87186; 87205; 87804; 87880; 93926; 96365; 96375; G0378; J0690; J1815; J1956; J2001; J2250; J2405; J2543; J2704; J3490

== ENCOUNTER 2020-03-30 14:48 | Inpatient (IN) | payer MEDICAID ==
[~2020-03-30] VITALS: Ht 185.4 cm; Wt 99.8 kg
[~2020-03-30 14:48] MED LIST changes: +ATOR10TA52 PO; -CARI-277 PO; +CITA10SO6 PO; -HYDR12.56 PO; -INSLISPI SC; +INSU100I2 SC; +LINE1TAB6 PO; -LISI-646 PO; +MORP1TAB12 PO; -PANT40TA2 PO
[2020-03-30] MEDS ORDERED: SODIUM CHLORIDE 0.9% 500 ML IV ONE ×2 (15:15→18:15)
[2020-03-30] MEDS ORDERED: methylPREDNISolone SOD SUCC 125 MG/2 ML VL IV ONE (15:15)
[2020-03-30 16:12] LABS: Basophils # (auto) 0.1 10 ^3/uL (0-0.2); Basophils % (auto) 0.7 % (0.0-2.0); Eosinophils # (auto) 0 10 ^3/uL (0-0.8); Eosinophils % (auto) 0.2 % (0.0-7.0); Hematocrit 38.2 % (41.0-53.0); Hemoglobin 12.2 g/dL (13.5-17.5); Lymphocytes # (auto) 1.2 10 ^3/uL (0.4-5.4); Lymphocytes % (auto) 5.8 % (10.0-50.0); Mean Corpuscular Hemoglobin 28.5 pg (28.0-32.0); Monocytes # (auto) 0.8 10 ^3/uL (0-1.3); Monocytes % (auto) 4.1 % (0.0-12.0); Neutrophils # (auto) 18.6 10 ^3/uL (1.6-8.6); Neutrophils % (auto) 89.2 % (37.0-80.0); Platelet Count (auto) 332 10^3/uL (140-450); Red Blood Cells 4.29 10^6/uL (4.5-5.90); Red Cell Distribution Width 14.2 % (11.8-14.3); White Blood Cell 20.8 10^3/uL (4.4-10.8)
[2020-03-30 16:31] LABS: Albumin 2.7 g/dL (3.4-5.0); Calcium 7.9 mg/dL (8.5-10.1); Potassium 4.4 mmol/L (3.5-5.1)
[2020-03-30 16:40] LABS: Bilirubin, Total 0.6 mg/dL (0.2-1.0); CRP High Sensitivity 3.64 mg/dL (< 0.3); Total Protein 6.9 g/dL (6.4-8.2)
[2020-03-30 16:42] LABS: BUN/Creatinine Ratio 7.9
[2020-03-30] MEDS ORDERED: MORPHINE SULFATE 4 MG/ML SYR/VIAL IV ONE (17:15)
[2020-03-30] MEDS ORDERED: ONDANSETRON HCL 4 MG/2 ML VIAL IV ONE (17:15)
[2020-03-30] MEDS ORDERED: SODIUM CHLORIDE 0.9% 1,000 ML IV ONE (17:45)
[2020-03-30] MEDS ORDERED: ONDANSETRON HCL 4 MG/2 ML VIAL IV PRN (18:15)
[2020-03-30] MEDS ORDERED: DOCUSATE CALCIUM 240 MG CAP PO PRN (18:15)
[2020-03-30] MEDS ORDERED: NITROGLYCERIN 0.4 MG SL TAB SL PRN (18:15)
[2020-03-30] MEDS ORDERED: LORazepam 0.5 MG TAB PO PRN (18:15)
[2020-03-30] MEDS ORDERED: ACETAMINOPHEN 500 MG TAB PO PRN (18:15)
[2020-03-30] MEDS ORDERED: MORPHINE SULF INJ 2 MG/ML SYRINGE 1ML IV PRN (18:15)
[2020-03-30] MEDS: SODIUM CHLORIDE 0.9% 1,000 ML IV SCH (20:00)
[2020-03-30] MEDS: HYDROcodone-ACET 10/325MG TAB PO PRN (20:35)
[2020-03-30] MEDS ORDERED: HYDROcodone-ACET 10/325MG TAB PO PRN (21:00)
[2020-03-30] MEDS ORDERED: DEXTROSE (50%) 50ML SYRG IV PRN (22:00)
[2020-03-30] MEDS: ACCU-CHEK COMFORT CURVE STRIP VI SCH (22:05)
[2020-03-30] MEDS: FLUDROCORTISONE ACETATE 0.1 MG TAB PO SCH (22:09)
[2020-03-30] MEDS: MORPHINE SULF 15mg ER tab PO SCH (22:10)
[2020-03-30] MEDS: PREGABALIN CAPSULE 75 MG CAP PO SCH (22:10)
[2020-03-30] MEDS: InsuLIN REG 1unit/0.01ml Soln (100units/ml) SC SCH (22:11)
[2020-03-31] MEDS: HYDROcodone-ACET 10/325MG TAB PO PRN ×2 (01:07→21:03)
[2020-03-31] MEDS: SODIUM CHLORIDE 0.9% 1,000 ML IV SCH ×2 (02:15→07:51)
[2020-03-31] MEDS: FLUDROCORTISONE ACETATE 0.1 MG TAB PO SCH (06:09)
[2020-03-31] MEDS: ACCU-CHEK COMFORT CURVE STRIP VI SCH ×4 (06:48→21:51)
[2020-03-31] MEDS: InsuLIN REG 1unit/0.01ml Soln (100units/ml) SC SCH ×4 (06:49→21:52)
[2020-03-31] MEDS: CITALOPRAM HYDROBR 20 MG TAB PO SCH (07:51)
[2020-03-31] MEDS: CLOPIDOGREL BISULFATE 75 MG TAB PO SCH (07:51)
[2020-03-31] MEDS: cefTRIAXone 1GM/50ML D5W 50 ML IV SCH (07:51)
[2020-03-31] MEDS: ASPirin-EC 81 mg tab PO SCH (07:51)
[2020-03-31] MEDS: PANTOPRAZOLE 40 MG TAB PO SCH (07:51)
[2020-03-31 08:25] LABS: Basophils # (auto) 0 10 ^3/uL (0-0.2); Basophils % (auto) 0.2 % (0.0-2.0); Eosinophils # (auto) 0 10 ^3/uL (0-0.8); Hematocrit 35.7 % (41.0-53.0); Hemoglobin 11.8 g/dL (13.5-17.5); Lymphocytes % (auto) 6.6 % (10.0-50.0); Mean Corpuscular Hemoglobin 29.3 pg (28.0-32.0); Mean Corpuscular Volume 88.9 fL (80.0-100.0); Monocytes # (auto) 0.5 10 ^3/uL (0-1.3); Monocytes % (auto) 3.3 % (0.0-12.0); Neutrophils # (auto) 14.3 10 ^3/uL (1.6-8.6); Neutrophils % (auto) 89.9 % (37.0-80.0); Platelet Count (auto) 264 10^3/uL (140-450); Red Blood Cells 4.02 10^6/uL (4.5-5.90); Red Cell Distribution Width 14.1 % (11.8-14.3); White Blood Cell 15.9 10^3/uL (4.4-10.8)
[2020-03-31 08:40] LABS: INR 1.03 (0.9-1.15); Partial Thromboplastin Time 27.6 sec (23.0-31.2)
[2020-03-31 08:44] LABS: Potassium 5.3 mmol/L (3.5-5.1)
[2020-03-31 08:53] LABS: Albumin 2.5 g/dL (3.4-5.0); BUN/Creatinine Ratio 21.3; Bilirubin, Total 0.4 mg/dL (0.2-1.0); Magnesium 2.2 mg/dL (1.6-2.6); Total Protein 6.8 g/dL (6.4-8.2)
[2020-03-31] MEDS: MORPHINE SULF 15mg ER tab PO SCH ×2 (10:39→21:38)
[2020-03-31] MEDS: PREGABALIN CAPSULE 75 MG CAP PO SCH ×2 (10:39→21:38)
[2020-03-31] MEDS ORDERED: ATORVASTATIN 20 MG TAB PO SCH (22:00)
[2020-04-01 01:08] VITALS: BP 127/75
[2020-04-01] MEDS: HYDROcodone-ACET 10/325MG TAB PO PRN (02:04)
[2020-04-01] MEDS: ACCU-CHEK COMFORT CURVE STRIP VI SCH ×2 (06:39→11:44)
[2020-04-01] MEDS: InsuLIN REG 1unit/0.01ml Soln (100units/ml) SC SCH ×2 (06:39→11:30)
[2020-04-01 07:27] LABS: Basophils # (auto) 0.1 10 ^3/uL (0-0.2); Basophils % (auto) 1.1 % (0.0-2.0); Eosinophils # (auto) 0.2 10 ^3/uL (0-0.8); Eosinophils % (auto) 1.8 % (0.0-7.0); Hematocrit 31.3 % (41.0-53.0); Hemoglobin 10.6 g/dL (13.5-17.5); Lymphocytes # (auto) 2.8 10 ^3/uL (0.4-5.4); Lymphocytes % (auto) 28.9 % (10.0-50.0); Mean Corpuscular Hemoglobin 29.7 pg (28.0-32.0); Mean Corpuscular Hgb Conc. 33.8 g/dL (32.0-36.0); Monocytes # (auto) 0.7 10 ^3/uL (0-1.3); Neutrophils # (auto) 5.9 10 ^3/uL (1.6-8.6); Neutrophils % (auto) 61.2 % (37.0-80.0); Platelet Count (auto) 252 10^3/uL (140-450); Red Blood Cells 3.56 10^6/uL (4.5-5.90); Red Cell Distribution Width 13.9 % (11.8-14.3); White Blood Cell 9.6 10^3/uL (4.4-10.8)
[2020-04-01 08:00] VITALS: BP 137/77
[2020-04-01 08:29] LABS: Calcium 7.9 mg/dL (8.5-10.1)
[2020-04-01 08:31] LABS: BUN/Creatinine Ratio 25.3
[2020-04-01] MEDS: CLOPIDOGREL BISULFATE 75 MG TAB PO SCH (09:11)
[2020-04-01] MEDS: PANTOPRAZOLE 40 MG TAB PO SCH (09:11)
[2020-04-01] MEDS: PREGABALIN CAPSULE 75 MG CAP PO SCH (09:11)
[2020-04-01] MEDS: MORPHINE SULF 15mg ER tab PO SCH (09:11)
[2020-04-01] MEDS: ASPirin-EC 81 mg tab PO SCH (09:11)
[2020-04-01] MEDS: CITALOPRAM HYDROBR 20 MG TAB PO SCH (09:11)
[2020-04-01] MEDS: cefTRIAXone 1GM/50ML D5W 50 ML IV SCH (09:12)
[2020-04-01] MEDS ORDERED: FLUDROCORTISONE ACETATE 0.1 MG TAB PO SCH (10:00)
[2020-04-01 11:50] VITALS: BP 121/76
== END 2020-04-01 14:00 | disposition home or self-care (01) | DRG 720 ==
LOC: ER 14:48 → TELE 14:49 → TELE-CENTR 03-31 23:45 → TELE-EAST 03-31 23:58
PROVIDERS: ADMIT Family Medicine; ATTEND Internal Medicine
DX: A41.89 Other specified sepsis (principal); E10.42 Type 1 diabetes mellitus with diabetic polyneuropathy; J12.82 Pneumonia due to coronavirus disease 2019; U07.1 COVID-19; D64.9 Anemia, unspecified; I25.10 Atherosclerotic heart disease of native coronary artery without angina pectoris; M54.5 Low back pain; G90.9 Disorder of the autonomic nervous system, unspecified; J44.0 Chronic obstructive pulmonary disease with (acute) lower respiratory infection; I95.1 Orthostatic hypotension; E10.65 Type 1 diabetes mellitus with hyperglycemia; E78.5 Hyperlipidemia, unspecified; F11.10 Opioid abuse, uncomplicated; F17.200 Nicotine dependence, unspecified, uncomplicated; F32.9 Major depressive disorder, single episode, unspecified; R19.7 Diarrhea, unspecified; I10 Essential (primary) hypertension; G89.29 Other chronic pain; N17.0 Acute kidney failure with tubular necrosis; Z79.02 Long term (current) use of antithrombotics/antiplatelets; Z79.52 Long term (current) use of systemic steroids; Z79.82 Long term (current) use of aspirin; Z79.899 Other long term (current) drug therapy; Z80.9 Family history of malignant neoplasm, unspecified; Z82.3 Family history of stroke; Z82.49 Family history of ischemic heart disease and other diseases of the circulatory system; Z83.3 Family history of diabetes mellitus; Z95.1 Presence of aortocoronary bypass graft; Z95.5 Presence of coronary angioplasty implant and graft; Z98.84 Bariatric surgery status
CPT/HCPCS: 36415; 70450; 71045; 80048; 80053; 80061; 82310; 82728; 82962; 83036; 83605; 83735; 83880; 84443; 84484; 85025; 85379; 85610; 85730; 86141; 87040; 87426; 93005; 96361; 96365; 96375; G0378; J0696; J1815; J2405

== ENCOUNTER 2020-07-23 12:22 | Emergency (ER) | payer MEDICAID ==
[~2020-07-23] VITALS: Ht 185.4 cm; Wt 113.4 kg
[~2020-07-23 12:22] MED LIST changes: +GEMF-19 PO; -GEMF600T7 PO
[2020-07-23 13:38] LABS: Basophils # (auto) 0.2 10 ^3/uL (0-0.2); Basophils % (auto) 2.4 % (0.0-2.0); Eosinophils # (auto) 0.7 10 ^3/uL (0-0.8); Eosinophils % (auto) 7.7 % (0.0-7.0); Hematocrit 36.5 % (41.0-53.0); Hemoglobin 11.9 g/dL (13.5-17.5); Lymphocytes # (auto) 2.3 10 ^3/uL (0.4-5.4); Mean Corpuscular Hemoglobin 28.8 pg (28.0-32.0); Mean Corpuscular Hgb Conc. 32.6 g/dL (32.0-36.0); Mean Corpuscular Volume 88.4 fL (80.0-100.0); Monocytes # (auto) 0.7 10 ^3/uL (0-1.3); Monocytes % (auto) 7.5 % (0.0-12.0); Neutrophils % (auto) 56.4 % (37.0-80.0); Nucleated Red Blood Cells % 0.1 %; Platelet Count (auto) 235 10^3/uL (140-450); Red Blood Cells 4.12 10^6/uL (4.5-5.90); Red Cell Distribution Width 15.5 % (11.8-14.3); White Blood Cell 8.9 10^3/uL (4.4-10.8)
[2020-07-23 13:52] LABS: INR 1.03 (0.9-1.15)
[2020-07-23 13:55] LABS: Albumin 2.9 g/dL (3.4-5.0); Calcium 7.9 mg/dL (8.5-10.1); Potassium 4.6 mmol/L (3.5-5.1)
[2020-07-23 14:00] LABS: BUN/Creatinine Ratio 9.5; Bilirubin, Total 0.4 mg/dL (0.2-1.0)
[2020-07-23 14:09] LABS: Magnesium 1.9 mg/dL (1.6-2.6)
[2020-07-23] MEDS ORDERED: HYDROcodone-ACET 10/325MG TAB PO ONE (15:00)
[2020-07-23 19:12] LABS: Urine Bacteria NONE SEEN /hpf (None Seen); Urine Blood TRACE /uL (Negative); Urine Hyaline Cast FEW /lpf (0 - 2); Urine Specific Gravity 1.014 (1.001-1.035); Urine WBC 2 /hpf (0 - 3)
[2020-07-23 19:29] LABS: Alcohol, Urine < 3.0 mg/dL (0-10); Amphetamine Screen, Urine NEGATIVE (NEGATIVE); Barbiturate Scree,Urine NEGATIVE (NEGATIVE); Benzodiazephine Screen, Urine NEGATIVE (NEGATIVE); Cannabinoid Screen, Urine NEGATIVE (NEGATIVE); Cocaine Screen, Urine NEGATIVE (NEGATIVE); Opiate Scree,Urine NEGATIVE (NEGATIVE); Phencyclidine Screen, Urine NEGATIVE (NEGATIVE)
[2020-07-23 20:45] VITALS: BP 148/82
== END 2020-07-23 20:56 | disposition home or self-care (01) ==
LOC: ER 12:22
DX: R55 Syncope and collapse (principal); M54.9 Dorsalgia, unspecified; G89.29 Other chronic pain; J44.9 Chronic obstructive pulmonary disease, unspecified; E11.9 Type 2 diabetes mellitus without complications; E78.5 Hyperlipidemia, unspecified; I10 Essential (primary) hypertension; F17.210 Nicotine dependence, cigarettes, uncomplicated
CPT/HCPCS: 36415; 70450; 71045; 72131; 80053; 80307; 81001; 82962; 83735; 84484; 85025; 85610; 85730; 93005

== ENCOUNTER 2020-09-08 20:53 | Emergency (ER) | payer MEDICAID ==
[~2020-09-08] VITALS: Ht 182.9 cm; Wt 90.7 kg
[2020-09-08 21:41] VITALS: BP 180/110
[2020-09-08] MEDS ORDERED: SILVER SULFADIAZINE 1 % TOPICAL CREAM 50GM TOP ONE (22:00)
[2020-09-08] MEDS ORDERED: KETOROLAC TROMETH 60MG/2ML VIAL IM ONE (23:30)
== END 2020-09-09 00:23 | disposition home or self-care (01) ==
LOC: ER 20:53 → EDBD 20:53 → ER 09-09 00:23
DX: T24.112A Burn of first degree of left thigh, initial encounter (principal); T21.12XA Burn of first degree of abdominal wall, initial encounter; I10 Essential (primary) hypertension; E11.9 Type 2 diabetes mellitus without complications; J44.9 Chronic obstructive pulmonary disease, unspecified; E78.5 Hyperlipidemia, unspecified; F17.210 Nicotine dependence, cigarettes, uncomplicated; Z79.4 Long term (current) use of insulin; Z79.899 Other long term (current) drug therapy; Z88.5 Allergy status to narcotic agent; X19.XXXA Contact with other heat and hot substances, initial encounter; Y93.89 Activity, other specified; Y92.89 Other specified places as the place of occurrence of the external cause; Y99.8 Other external cause status
CPT/HCPCS: 96372; 99283; J1885

== ENCOUNTER 2020-09-12 19:43 | Emergency (ER) | payer MEDICAID ==
[~2020-09-12] VITALS: Ht 185.4 cm; Wt 113.4 kg
[2020-09-12 19:49] VITALS: BP 128/80
[2020-09-12] MEDS ORDERED: cefTRIAXone SOD 1,000 MG VL IM ONE (22:15)
[2020-09-12] MEDS ORDERED: CLINDAMYCIN 600 MG/4 ML VL IM ONE (22:15)
[2020-09-12] MEDS ORDERED: ACETAMINOPHEN/CODEINE#3 (300/30mg) TAB PO ONE (22:15)
[2020-09-12] MEDS ORDERED: BACITRACIN TOP OINT 1 UD PKG TOP ONE (23:00)
== END 2020-09-12 22:40 | disposition home or self-care (01) ==
LOC: ER 19:48
DX: L03.116 Cellulitis of left lower limb (principal); L03.311 Cellulitis of abdominal wall; J44.9 Chronic obstructive pulmonary disease, unspecified; E11.9 Type 2 diabetes mellitus without complications; E78.5 Hyperlipidemia, unspecified; I10 Essential (primary) hypertension; F17.210 Nicotine dependence, cigarettes, uncomplicated; Z79.899 Other long term (current) drug therapy; Z79.4 Long term (current) use of insulin; Z88.5 Allergy status to narcotic agent
CPT/HCPCS: 96372; 99284; J0696

== ENCOUNTER 2021-08-31 13:42 | Inpatient (IN) | payer MEDICAID ==
[~2021-08-31] VITALS: Ht 185.4 cm; Wt 120.0 kg
[2021-08-31] MEDS ORDERED: SODIUM CHLORIDE 0.9% 1,000 ML IVB ONE (14:15)
[2021-08-31 14:35] LABS: Basophils # (auto) 0.1 10 ^3/uL (0-0.2); Eosinophils # (auto) 0.2 10 ^3/uL (0-0.8); Hematocrit 32.6 % (41.0-53.0); Hemoglobin 10.6 g/dL (13.5-17.5); Lymphocytes # (auto) 1.5 10 ^3/uL (0.4-5.4); Lymphocytes % (auto) 26.4 % (10.0-50.0); Mean Corpuscular Hemoglobin 25.8 pg (28.0-32.0); Mean Corpuscular Hgb Conc. 32.4 g/dL (32.0-36.0); Mean Corpuscular Volume 79.7 fL (80.0-100.0); Monocytes # (auto) 0.3 10 ^3/uL (0-1.3); Monocytes % (auto) 5.4 % (0.0-12.0); Neutrophils # (auto) 3.7 10 ^3/uL (1.6-8.6); Neutrophils % (auto) 63.2 % (37.0-80.0); Nucleated Red Blood Cells % 0.1 %; Red Cell Distribution Width 17.7 % (11.8-14.3); White Blood Cell 5.8 10^3/uL (4.4-10.8)
[2021-08-31 14:49] LABS: Alanine Aminotransferase 24 U/L (16-61); Albumin 1.2 g/dL (3.4-5.0); Anion Gap 9 (5-15); Aspartate Aminotransferase 44 U/L (15-37); BUN/Creatinine Ratio 9.5; Blood Urea Nitrogen 9 mg/dL (7-18); Calcium 7.6 mg/dL (8.5-10.1); Carbon Dioxide 25 mmol/L (21-32); Chloride 110 mmol/L (98-107); GFR African American 114 mL/min; GFR Non-African American 94 mL/min; Glucose 85 mg/dL (74-106); Magnesium 1.9 mg/dL (1.6-2.6); Potassium 3.2 mmol/L (3.5-5.1); Sodium 144 mmol/L (136-145)
[2021-08-31 14:52] LABS: Alkaline Phosphatase 96 U/L (45-117); Bilirubin, Total < 0.1 mg/dL (0.2-1.0); Total Protein 5.1 g/dL (6.4-8.2)
[2021-08-31] MEDS ORDERED: MORPHINE SULFATE INJ 2 MG/ml SYRG IV PRN (16:15)
[2021-08-31] MEDS ORDERED: POTASSIUM CHL 20MEQ/100ML 100 ML IV ONE (16:15)
[2021-08-31] MEDS ORDERED: NITROGLYCERIN 0.4 MG SL TAB SL PRN (16:15)
[2021-08-31] MEDS ORDERED: MAGNESIUM SULFATE 1GM/100ML 100 ML IV ONE (16:15)
[2021-08-31] MEDS ORDERED: LACTATED RINGER'S 1,000 ML IV ONE (16:15)
[2021-08-31] MEDS: HYDROmorphone HCL 2 MG/ML VL/or syr IV PRN ×2 (17:17→22:54)
[2021-08-31] MEDS ORDERED: METOCLOPRAMIDE HCL 5MG/ml INJ 2ml VIAL IV PRN ×2 (20:30)
[2021-08-31] MEDS ORDERED: HYDROcodone-ACET 5/325MG TAB PO PRN (20:30)
[2021-08-31] MEDS ORDERED: SODIUM CHLORIDE 0.9% 1,000 ML IV SCH (20:30)
[2021-08-31] MEDS ORDERED: DOCUSATE SOD 100 MG CAP PO PRN (20:30)
[2021-08-31] MEDS ORDERED: BENAZEPRIL HCL 10 MG TAB PO ONE (20:30)
[2021-08-31] MEDS ORDERED: DEXTROSE (50%) 50ML SYRG IV PRN (20:30)
[2021-08-31] MEDS ORDERED: LORazepam 0.5 MG TAB PO PRN (20:30)
[2021-08-31] MEDS ORDERED: hydrALAZINE HCL 20 MG/ML VL IV PRN (20:30)
[2021-08-31] MEDS ORDERED: IPRATROPIUM BROM 0.5 MG/2.5ML INH SOL NEB PRN (21:45)
[2021-08-31 21:47] VITALS: BP 162/110
[2021-08-31 22:00] VITALS: BP 117/90
[2021-08-31] MEDS ORDERED: ATORVASTATIN 20 MG TAB PO SCH (22:00)
[2021-08-31] MEDS ORDERED: CLOP75TA70 PO (22:00)
[2021-08-31] MEDS ORDERED: IPRATROPIUM BROM 0.5 MG/2.5ML INH SOL NEB SCH (22:00)
[2021-08-31 22:47] LABS: INR 0.96 (0.9-1.15); Partial Thromboplastin Time 26.5 sec (23.6-33.0)
[2021-08-31 22:49] LABS: Magnesium 1.9 mg/dL (1.6-2.6); Phosphorus 3.5 mg/dL (2.5-4.90)
[2021-08-31] MEDS: AMITRIPTYLINE HCL 25 MG TAB PO SCH (22:54)
[2021-08-31] MEDS: ACCU-CHEK COMFORT CURVE STRIP VI SCH (22:54)
[2021-08-31] MEDS: GABAPENTIN 300 MG CAP PO SCH (22:54)
[2021-08-31] MEDS: POTASSIUM CHL 20 Meq TABLET PO SCH (23:21)
[2021-08-31] MEDS: InsuLIN REG 1unit/0.01ml Soln (100units/ml) SC SCH (23:33)
[2021-09-01] VITALS (7 sets, daily range): BP systolic 88–160; BP diastolic 7–98
[2021-09-01] MEDS: HYDROmorphone HCL 2 MG/ML VL/or syr IV PRN ×2 (03:07→07:32)
[2021-09-01 05:15] LABS: Basophils # (auto) 0.1 10 ^3/uL (0-0.2); Eosinophils # (auto) 0.3 10 ^3/uL (0-0.8); Hematocrit 30.1 % (41.0-53.0); Hemoglobin 9.7 g/dL (13.5-17.5); Lymphocytes # (auto) 1.8 10 ^3/uL (0.4-5.4); Monocytes # (auto) 0.5 10 ^3/uL (0-1.3); Neutrophils # (auto) 2.6 10 ^3/uL (1.6-8.6); White Blood Cell 5.4 10^3/uL (4.4-10.8)
[2021-09-01 05:17] LABS: Basophils % (auto) 2.4 % (0.0-2.0); Eosinophils % (auto) 5.9 % (0.0-7.0); Lymphocytes % (auto) 33.5 % (10.0-50.0); Mean Corpuscular Hemoglobin 25.9 pg (28.0-32.0); Mean Corpuscular Hgb Conc. 32.2 g/dL (32.0-36.0); Mean Corpuscular Volume 80.4 fL (80.0-100.0); Neutrophils % (auto) 49.2 % (37.0-80.0); Red Blood Cells 3.75 10^6/uL (4.5-5.90); Red Cell Distribution Width 17.6 % (11.8-14.3)
[2021-09-01 05:28] LABS: INR 0.99 (0.9-1.15); Partial Thromboplastin Time 25.1 sec (23.6-33.0)
[2021-09-01 05:34] LABS: Chloride 114 mmol/L (98-107); Magnesium 1.9 mg/dL (1.6-2.6); Potassium 3.3 mmol/L (3.5-5.1); Sodium 142 mmol/L (136-145)
[2021-09-01 05:40] LABS: Alanine Aminotransferase 26 U/L (16-61); Albumin 1.1 g/dL (3.4-5.0); Alkaline Phosphatase 97 U/L (45-117); Anion Gap 5 (5-15); Aspartate Aminotransferase 33 U/L (15-37); BUN/Creatinine Ratio 14.1; Bilirubin, Total < 0.1 mg/dL (0.2-1.0); Blood Urea Nitrogen 11 mg/dL (7-18); CRP High Sensitivity 0.44 mg/dL (< 0.3); Calcium 7.2 mg/dL (8.5-10.1); Carbon Dioxide 23 mmol/L (21-32); Cholesterol 258 mg/dL (< 200); Creatine Kinase IFCC 140 U/L (39-308); GFR African American 143 mL/min; GFR Non-African American 118 mL/min; Glucose 107 mg/dL (74-106); HDL Cholesterol 28 mg/dL (40-59); LDL Cholesterol 198 mg/dL (< 100); Lipase 54 U/L (73-393); Phosphorus 4.1 mg/dL (2.5-4.90); Total Protein 4.7 g/dL (6.4-8.2); Triglycerides 189 mg/dL (< 150)
[2021-09-01] MEDS: GEMFIBROZIL 600 MG TAB PO SCH ×2 (05:51→16:45)
[2021-09-01] MEDS: GABAPENTIN 300 MG CAP PO SCH ×3 (05:51→22:30)
[2021-09-01] MEDS: ACCU-CHEK COMFORT CURVE STRIP VI SCH ×4 (05:52→22:30)
[2021-09-01] MEDS: InsuLIN REG 1unit/0.01ml Soln (100units/ml) SC SCH ×4 (05:53→22:42)
[2021-09-01 06:24] LABS: Urine Bacteria NONE SEEN /hpf (None Seen); Urine Blood 1+ /uL (Negative); Urine Hyaline Cast MOD /lpf (0 - 2); Urine Mucus FEW (None Seen); Urine Specific Gravity 1.012 (1.001-1.035); Urine WBC 6 /hpf (0 - 3)
[2021-09-01 07:15] LABS: Amphetamine Screen, Urine NEGATIVE (NEGATIVE); Barbiturate Scree,Urine NEGATIVE (NEGATIVE); Benzodiazephine Screen, Urine NEGATIVE (NEGATIVE); Cannabinoid Screen, Urine NEGATIVE (NEGATIVE); Cocaine Screen, Urine NEGATIVE (NEGATIVE); Opiate Scree,Urine NEGATIVE (NEGATIVE); Phencyclidine Screen, Urine NEGATIVE (NEGATIVE)
[2021-09-01 07:24] LABS: Protein, Urine 488.5 mg/dL (0.0-11.9)
[2021-09-01 07:25] LABS: Alcohol, Urine < 3.0 mg/dL (0-10)
[2021-09-01] MEDS: ASPirin 81 mg TAB PO SCH (09:13)
[2021-09-01] MEDS: POTASSIUM CHL 20 Meq TABLET PO SCH ×2 (09:13→22:29)
[2021-09-01] MEDS ORDERED: BENAZEPRIL HCL 10 MG TAB PO SCH (10:00)
[2021-09-01] MEDS ORDERED: MORPHINE SULF 15mg ER tab PO ONE (10:00)
[2021-09-01] MEDS ORDERED: PANTOPRAZOLE 40 MG/10 ML VIAL INJ IV SCH (10:00)
[2021-09-01] MEDS ORDERED: ENOXAPARIN SOD 40 MG/0.4 ML SYRINGE SC SCH (10:00)
[2021-09-01] MEDS: PANTOPRAZOLE 40 MG TAB PO SCH (10:00)
[2021-09-01] MEDS: CITALOPRAM HYDROBR 20 MG TAB PO SCH (10:46)
[2021-09-01] MEDS: MORPHINE SULF 15mg ER tab PO SCH ×2 (10:47→22:51)
[2021-09-01] MEDS: HYDROcodone-ACET 10/325MG TAB PO PRN ×2 (13:54→21:01)
[2021-09-01] MEDS: AMITRIPTYLINE HCL 25 MG TAB PO SCH (22:28)
[2021-09-01] MEDS: ATORVASTATIN 20 MG TAB PO SCH (22:29)
[2021-09-02 05:00] VITALS: BP 130/84
[2021-09-02 06:16] LABS: Calcium 7.4 mg/dL (8.5-10.1); Potassium 3.9 mmol/L (3.5-5.1)
[2021-09-02 06:19] LABS: BUN/Creatinine Ratio 13.9
[2021-09-02] MEDS: GEMFIBROZIL 600 MG TAB PO SCH ×2 (07:00→16:54)
[2021-09-02] MEDS: InsuLIN REG 1unit/0.01ml Soln (100units/ml) SC SCH ×4 (07:00→22:42)
[2021-09-02] MEDS: ACCU-CHEK COMFORT CURVE STRIP VI SCH ×4 (07:01→22:31)
[2021-09-02] MEDS: GABAPENTIN 300 MG CAP PO SCH ×3 (07:01→22:31)
[2021-09-02] MEDS: POTASSIUM CHL 20 Meq TABLET PO SCH ×2 (08:36→22:30)
[2021-09-02] MEDS: CITALOPRAM HYDROBR 20 MG TAB PO SCH (08:36)
[2021-09-02] MEDS: ASPirin 81 mg TAB PO SCH (08:36)
[2021-09-02] MEDS: MORPHINE SULF 15mg ER tab PO SCH ×2 (08:37→22:31)
[2021-09-02] MEDS: PANTOPRAZOLE 40 MG TAB PO SCH (08:37)
[2021-09-02 09:00] VITALS: BP_SYST 114; BP_SYST 95; BP_SYST 98; BP_DIAS 44; BP_DIAS 57; BP_DIAS 64
[2021-09-02] MEDS ORDERED: NITROFURANTOIN 100 mg CAP PO ONE (10:15)
[2021-09-02] MEDS ORDERED: HYDROcodone-ACET 10/325MG TAB PO PRN (11:15)
[2021-09-02 11:39] LABS: Hematocrit 30.7 % (41.0-53.0); Hemoglobin 9.8 g/dL (13.5-17.5)
[2021-09-02 13:00] VITALS: BP 145/85
[2021-09-02] MEDS: HYDROmorphone HCL 2 MG/ML VL/or syr IV PRN ×2 (13:32→20:00)
[2021-09-02 16:33] LABS: Hematocrit 31.1 % (41.0-53.0); Hemoglobin 10.1 g/dL (13.5-17.5)
[2021-09-02 17:00] VITALS: BP 130/75
[2021-09-02 22:00] VITALS: BP 105/60
[2021-09-02 22:18] LABS: Hematocrit 30.9 % (41.0-53.0); Hemoglobin 9.8 g/dL (13.5-17.5)
[2021-09-02] MEDS: AMITRIPTYLINE HCL 25 MG TAB PO SCH (22:30)
[2021-09-02] MEDS: NITROFURANTOIN 100 mg CAP PO SCH (22:31)
[2021-09-02] MEDS: ATORVASTATIN 20 MG TAB PO SCH (22:31)
[2021-09-02] MEDS ORDERED: TEMAZEPAM 15 MG CAP PO ONE (23:00)
[2021-09-02] MEDS ORDERED: LOPERAMIDE HCL 2 MG CAP/TAB PO PRN (23:00)
[2021-09-03] MEDS: HYDROmorphone HCL 2 MG/ML VL/or syr IV PRN ×3 (02:09→14:46)
[2021-09-03 05:00] VITALS: BP 104/60
[2021-09-03] MEDS: GEMFIBROZIL 600 MG TAB PO SCH (06:19)
[2021-09-03] MEDS: GABAPENTIN 300 MG CAP PO SCH ×2 (06:19→14:44)
[2021-09-03] MEDS: ACCU-CHEK COMFORT CURVE STRIP VI SCH ×2 (06:32→12:44)
[2021-09-03] MEDS: InsuLIN REG 1unit/0.01ml Soln (100units/ml) SC SCH ×2 (06:32→11:30)
[2021-09-03 08:30] LABS: Folate (Folic Acid) 12.47 ng/mL (5.38-24)
[2021-09-03 08:35] VITALS: BP 123/72
[2021-09-03] MEDS ORDERED: MIDO5TAB22 PO (10:43)
[2021-09-03] MEDS ORDERED: MIDODRINE HCL 10 MG TAB PO ONE (10:45)
[2021-09-03] MEDS: PANTOPRAZOLE 40 MG TAB PO SCH (11:01)
[2021-09-03] MEDS: ASPirin 81 mg TAB PO SCH (11:02)
[2021-09-03] MEDS: MORPHINE SULF 15mg ER tab PO SCH (11:02)
[2021-09-03] MEDS: CITALOPRAM HYDROBR 20 MG TAB PO SCH (11:02)
[2021-09-03] MEDS: POTASSIUM CHL 20 Meq TABLET PO SCH (11:04)
[2021-09-03 12:25] VITALS: BP 156/98
[2021-09-03] MEDS: NITROFURANTOIN 100 mg CAP PO SCH (12:45)
[2021-09-03 13:17] VITALS: BP 156/98
[2021-09-03 15:16] VITALS: BP 110/68
== END 2021-09-03 15:50 | disposition home or self-care (01) | DRG 48 ==
LOC: ER 13:42 → EDBD 13:42 → TELE 16:14 → CENTRAL 21:15 → TELE-CENTR 21:28
PROVIDERS: ADMIT Hospitalist; ATTEND Internal Medicine
DX: G90.8 Other disorders of autonomic nervous system (principal); E43 Unspecified severe protein-calorie malnutrition; S09.90XA Unspecified injury of head, initial encounter; R16.0 Hepatomegaly, not elsewhere classified; E11.42 Type 2 diabetes mellitus with diabetic polyneuropathy; I95.1 Orthostatic hypotension; E66.9 Obesity, unspecified; E78.2 Mixed hyperlipidemia; E87.6 Hypokalemia; F11.20 Opioid dependence, uncomplicated; F17.210 Nicotine dependence, cigarettes, uncomplicated; F32.9 Major depressive disorder, single episode, unspecified; G89.4 Chronic pain syndrome; I11.9 Hypertensive heart disease without heart failure; Z20.822 Contact with and (suspected) exposure to COVID-19; I25.10 Atherosclerotic heart disease of native coronary artery without angina pectoris; J44.9 Chronic obstructive pulmonary disease, unspecified; K21.9 Gastro-esophageal reflux disease without esophagitis; K75.81 Nonalcoholic steatohepatitis (NASH); S20.229A Contusion of unspecified back wall of thorax, initial encounter; F32.A Depression, unspecified; F41.9 Anxiety disorder, unspecified; M54.50 Low back pain, unspecified; Z82.49 Family history of ischemic heart disease and other diseases of the circulatory system; Z82.3 Family history of stroke; Z83.3 Family history of diabetes mellitus; Z79.4 Long term (current) use of insulin; Z68.34 Body mass index [BMI] 34.0-34.9, adult; Z86.16 Personal history of COVID-19; Z86.73 Personal history of transient ischemic attack (TIA), and cerebral infarction without residual deficits; Z87.01 Personal history of pneumonia (recurrent); Z95.1 Presence of aortocoronary bypass graft; Z95.5 Presence of coronary angioplasty implant and graft; Z98.84 Bariatric surgery status; X58.XXXA Exposure to other specified factors, initial encounter; Y93.89 Activity, other specified; Y92.89 Other specified places as the place of occurrence of the external cause; Y99.8 Other external cause status
CPT/HCPCS: 36415; 70450; 71045; 72131; 80048; 80053; 80061; 80307; 81001; 82270; 82550; 82728; 82746; 82962; 83036; 83615; 83690; 83735; 83880; 84100; 84156; 84439; 84443; 84484; 84550; 85014; 85018; 85025; 85045; 85379; 85610; 85652; 85730; 86141; 87040; 87081; 87086; 93005; 93306; 93886; 96361; 96365; 96366; 96368; C9113; G0378; J1815; J3480

== ENCOUNTER 2021-09-16 11:29 | Inpatient (IN) | payer MEDICAID ==
[~2021-09-16] VITALS: Ht 185.4 cm; Wt 122.9 kg
[~2021-09-16 11:29] MED LIST changes: +CLOP75TA70 PO
[2021-09-16 12:43] LABS: Albumin 1.1 g/dL (3.4-5.0); Anion Gap 6 (5-15); Blood Urea Nitrogen 6 mg/dL (7-18); Calcium 7.3 mg/dL (8.5-10.1); Carbon Dioxide 27 mmol/L (21-32); Chloride 109 mmol/L (98-107); Glucose 110 mg/dL (74-106); Magnesium 1.9 mg/dL (1.6-2.6); Potassium 3.5 mmol/L (3.5-5.1); Sodium 142 mmol/L (136-145)
[2021-09-16 12:45] LABS: Basophils # (auto) 0.1 10 ^3/uL (0-0.2); Eosinophils # (auto) 0.2 10 ^3/uL (0-0.8); Hemoglobin 9.7 g/dL (13.5-17.5); Lymphocytes # (auto) 1.4 10 ^3/uL (0.4-5.4); Monocytes # (auto) 0.6 10 ^3/uL (0-1.3); Neutrophils # (auto) 6.7 10 ^3/uL (1.6-8.6)
[2021-09-16 12:46] LABS: Alanine Aminotransferase 18 U/L (16-61); Alkaline Phosphatase 97 U/L (45-117); Aspartate Aminotransferase 22 U/L (15-37); BUN/Creatinine Ratio 7.5; Bilirubin, Total 0.1 mg/dL (0.2-1.0); GFR African American 138 mL/min; GFR Non-African American 114 mL/min; Total Protein 5.4 g/dL (6.4-8.2)
[2021-09-16 12:47] LABS: Basophils % (auto) 1.1 % (0.0-2.0); Eosinophils % (auto) 2.2 % (0.0-7.0); Hematocrit 30.7 % (41.0-53.0); Lymphocytes % (auto) 15.5 % (10.0-50.0); Mean Corpuscular Hgb Conc. 31.6 g/dL (32.0-36.0); Mean Corpuscular Volume 79.4 fL (80.0-100.0); Monocytes % (auto) 7.1 % (0.0-12.0); Neutrophils % (auto) 74.1 % (37.0-80.0); Red Blood Cells 3.87 10^6/uL (4.5-5.90); Red Cell Distribution Width 17.7 % (11.8-14.3)
[2021-09-16 12:50] LABS: INR 1.02 (0.9-1.15)
[2021-09-16 13:05] LABS: Blood Alcohol < 3.0 mg/dL (0-5)
[2021-09-16] MEDS ORDERED: HYDROmorphone HCL 2 MG/ML VL/or syr IV ONE (13:15)
[2021-09-16] MEDS ORDERED: ONDANSETRON HCL 4 MG/2 ML VIAL IV ONE (13:15)
[2021-09-16] MEDS ORDERED: DEXTROSE (50%) 50ML SYRG IV PRN (17:30)
[2021-09-16 21:08] LABS: Urine Bacteria NONE SEEN /hpf (None Seen); Urine Blood TRACE /uL (Negative); Urine Hyaline Cast FEW /lpf (0 - 2); Urine Mucus FEW (None Seen); Urine Specific Gravity 1.022 (1.001-1.035); Urine WBC 13 /hpf (0 - 3)
[2021-09-16 21:22] LABS: Alcohol, Urine < 3.0 mg/dL (0-10); Amphetamine Screen, Urine NEGATIVE (NEGATIVE); Barbiturate Scree,Urine NEGATIVE (NEGATIVE); Benzodiazephine Screen, Urine NEGATIVE (NEGATIVE); Cannabinoid Screen, Urine NEGATIVE (NEGATIVE); Cocaine Screen, Urine NEGATIVE (NEGATIVE); Opiate Scree,Urine NEGATIVE (NEGATIVE); Phencyclidine Screen, Urine NEGATIVE (NEGATIVE)
[2021-09-16] MEDS: MORPHINE SULF 15mg ER tab PO SCH (22:00)
[2021-09-16] MEDS: InsuLIN REG 1unit/0.01ml Soln (100units/ml) SC SCH (22:00)
[2021-09-16] MEDS ORDERED: HYDROcodone-ACET 10/325MG TAB PO PRN (22:00)
[2021-09-16] MEDS: PREGABALIN CAPSULE 75 MG CAP PO SCH (22:27)
[2021-09-16] MEDS: GEMFIBROZIL 600 MG TAB PO SCH (22:28)
[2021-09-16] MEDS: ACCU-CHEK COMFORT CURVE STRIP VI SCH (22:29)
[2021-09-17] MEDS: HYDROmorphone HCL 2 MG/ML VL/or syr IV PRN ×6 (00:29→21:49)
[2021-09-17 04:38] LABS: Basophils # (auto) 0.1 10 ^3/uL (0-0.2); Hemoglobin 10.3 g/dL (13.5-17.5); Lymphocytes # (auto) 2.4 10 ^3/uL (0.4-5.4); Monocytes # (auto) 0.8 10 ^3/uL (0-1.3); Monocytes % (auto) 7.5 % (0.0-12.0); Neutrophils # (auto) 6.5 10 ^3/uL (1.6-8.6); White Blood Cell 10.1 10^3/uL (4.4-10.8)
[2021-09-17 04:40] LABS: Basophils % (auto) 1.4 % (0.0-2.0); Eosinophils # (auto) 0.3 10 ^3/uL (0-0.8); Hematocrit 31.7 % (41.0-53.0); Lymphocytes % (auto) 23.5 % (10.0-50.0); Mean Corpuscular Hgb Conc. 32.6 g/dL (32.0-36.0); Mean Corpuscular Volume 79.9 fL (80.0-100.0); Neutrophils % (auto) 64.6 % (37.0-80.0); Red Blood Cells 3.96 10^6/uL (4.5-5.90)
[2021-09-17 04:53] LABS: Albumin 1.3 g/dL (3.4-5.0); Calcium 7.8 mg/dL (8.5-10.1); Potassium 3.9 mmol/L (3.5-5.1)
[2021-09-17 04:56] LABS: BUN/Creatinine Ratio 8.6
[2021-09-17 04:58] LABS: Bilirubin, Total 0.1 mg/dL (0.2-1.0)
[2021-09-17] MEDS: InsuLIN REG 1unit/0.01ml Soln (100units/ml) SC SCH ×4 (07:00→21:50)
[2021-09-17] MEDS: ACCU-CHEK COMFORT CURVE STRIP VI SCH ×4 (07:05→21:50)
[2021-09-17] MEDS ORDERED: NICOTINE 14 MG/24HR TOPICAL PATCH TD SCH (10:00)
[2021-09-17] MEDS ORDERED: PATIENTS OWN MEDICATION (Atorvastatin Calcium 1 TAB) PO SCH (10:00)
[2021-09-17] MEDS: MORPHINE SULF 15mg ER tab PO SCH ×2 (10:22→21:34)
[2021-09-17] MEDS: CLOPIDOGREL BISULFATE 75 MG TAB PO SCH (10:22)
[2021-09-17] MEDS: PREGABALIN CAPSULE 75 MG CAP PO SCH ×2 (10:22→21:34)
[2021-09-17] MEDS: GEMFIBROZIL 600 MG TAB PO SCH ×2 (10:22→21:33)
[2021-09-17 13:00] VITALS: BP 137/93
[2021-09-17] MEDS ORDERED: hydrALAZINE HCL 20 MG/ML VL IV PRN (13:45)
[2021-09-17] MEDS ORDERED: HYDR-4798 PO (13:48)
[2021-09-17 15:23] LABS: Basophils # (auto) 0.1 10 ^3/uL (0-0.2); Eosinophils # (auto) 0.2 10 ^3/uL (0-0.8); Lymphocytes # (auto) 1.7 10 ^3/uL (0.4-5.4); Monocytes # (auto) 0.7 10 ^3/uL (0-1.3); Neutrophils # (auto) 5.4 10 ^3/uL (1.6-8.6)
[2021-09-17 15:24] LABS: Eosinophils % (auto) 2.1 % (0.0-7.0); Hematocrit 27.6 % (41.0-53.0); Hemoglobin 8.8 g/dL (13.5-17.5); Mean Corpuscular Hemoglobin 25.2 pg (28.0-32.0); Mean Corpuscular Hgb Conc. 31.7 g/dL (32.0-36.0); Mean Corpuscular Volume 79.6 fL (80.0-100.0); Monocytes % (auto) 8.4 % (0.0-12.0); Neutrophils % (auto) 67.5 % (37.0-80.0); Red Blood Cells 3.47 10^6/uL (4.5-5.90); Red Cell Distribution Width 17.9 % (11.8-14.3)
[2021-09-17 15:58] LABS: BUN/Creatinine Ratio 10.5; Calcium 7.5 mg/dL (8.5-10.1); Potassium 4.1 mmol/L (3.5-5.1)
[2021-09-17 17:00] VITALS: BP 140/74
[2021-09-17 22:00] VITALS: BP 94/53
[2021-09-18] MEDS: HYDROmorphone HCL 2 MG/ML VL/or syr IV PRN ×2 (01:49→05:51)
[2021-09-18 05:00] VITALS: BP 116/64
[2021-09-18] MEDS: ACCU-CHEK COMFORT CURVE STRIP VI SCH (06:27)
[2021-09-18] MEDS: InsuLIN REG 1unit/0.01ml Soln (100units/ml) SC SCH (06:28)
[2021-09-18] MEDS ORDERED: HYDROmorphone HCL 2 MG/ML VL/or syr IV PRN (09:00)
[2021-09-18 09:01] VITALS: BP 105/45
[2021-09-18] MEDS: CLOPIDOGREL BISULFATE 75 MG TAB PO SCH (09:40)
[2021-09-18] MEDS: PREGABALIN CAPSULE 75 MG CAP PO SCH (09:41)
[2021-09-18] MEDS: GEMFIBROZIL 600 MG TAB PO SCH (09:41)
[2021-09-18 10:16] VITALS: BP 133/64
== END 2021-09-18 12:00 | disposition home or self-care (01) | DRG 48 ==
LOC: EDBD 11:29 → ER 11:29 → TELE 17:09 → TELE-CENTR 09-17 10:27
PROVIDERS: ADMIT Registered Nurse; ATTEND Internal Medicine
DX: G90.8 Other disorders of autonomic nervous system (principal); S09.8XXA Other specified injuries of head, initial encounter; E46 Unspecified protein-calorie malnutrition; E11.22 Type 2 diabetes mellitus with diabetic chronic kidney disease; D63.8 Anemia in other chronic diseases classified elsewhere; N39.0 Urinary tract infection, site not specified; N18.30 Chronic kidney disease, stage 3 unspecified; Z20.822 Contact with and (suspected) exposure to COVID-19; I25.10 Atherosclerotic heart disease of native coronary artery without angina pectoris; J44.9 Chronic obstructive pulmonary disease, unspecified; E78.5 Hyperlipidemia, unspecified; W18.39XA Other fall on same level, initial encounter; G89.29 Other chronic pain; E11.42 Type 2 diabetes mellitus with diabetic polyneuropathy; I12.9 Hypertensive chronic kidney disease with stage 1 through stage 4 chronic kidney disease, or unspecified chronic kidney disease; R31.9 Hematuria, unspecified; Z86.718 Personal history of other venous thrombosis and embolism; I25.2 Old myocardial infarction; Z83.3 Family history of diabetes mellitus; Z82.49 Family history of ischemic heart disease and other diseases of the circulatory system; Z80.8 Family history of malignant neoplasm of other organs or systems; Y93.89 Activity, other specified; Y92.89 Other specified places as the place of occurrence of the external cause; Y99.8 Other external cause status; Z71.6 Tobacco abuse counseling; Z72.0 Tobacco use; Z68.34 Body mass index [BMI] 34.0-34.9, adult
CPT/HCPCS: 36415; 70450; 71045; 80048; 80053; 80307; 80320; 81001; 82962; 83735; 83880; 84484; 85025; 85610; 85730; 87081; 93005; 93970; 96374; 96375; 99291; G0378; J2405

== ENCOUNTER 2021-09-22 19:59 | Inpatient (IN) | payer MEDICAID ==
[~2021-09-22] VITALS: Ht 185.4 cm; Wt 114.3 kg
[~2021-09-22 19:59] MED LIST changes: +HYDR-4798 PO
[2021-09-22 22:41] LABS: Basophils # (auto) 0.1 10 ^3/uL (0-0.2); Basophils % (auto) 1.4 % (0.0-2.0); Eosinophils # (auto) 0.3 10 ^3/uL (0-0.8); Eosinophils % (auto) 2.6 % (0.0-7.0); Hematocrit 29.6 % (41.0-53.0); Hemoglobin 9.4 g/dL (13.5-17.5); Lymphocytes # (auto) 2.1 10 ^3/uL (0.4-5.4); Lymphocytes % (auto) 19.5 % (10.0-50.0); Mean Corpuscular Hemoglobin 25.3 pg (28.0-32.0); Mean Corpuscular Hgb Conc. 31.8 g/dL (32.0-36.0); Mean Corpuscular Volume 79.5 fL (80.0-100.0); Monocytes # (auto) 0.6 10 ^3/uL (0-1.3); Monocytes % (auto) 5.6 % (0.0-12.0); Neutrophils # (auto) 7.7 10 ^3/uL (1.6-8.6); Neutrophils % (auto) 70.9 % (37.0-80.0); Red Blood Cells 3.72 10^6/uL (4.5-5.90); Red Cell Distribution Width 17.1 % (11.8-14.3); White Blood Cell 10.8 10^3/uL (4.4-10.8)
[2021-09-22 22:59] LABS: Albumin 1.3 g/dL (3.4-5.0); BUN/Creatinine Ratio 6.3; Calcium 7.9 mg/dL (8.5-10.1); Potassium 3.4 mmol/L (3.5-5.1)
[2021-09-22 23:01] LABS: Bilirubin, Total 0.1 mg/dL (0.2-1.0); Total Protein 6.6 g/dL (6.4-8.2)
[2021-09-23] MEDS ORDERED: SODIUM CHLORIDE 0.9% 1,000 ML IV ONE ×2 (08:45→13:15)
[2021-09-23] MEDS ORDERED: HYDROmorphone HCL 2 MG/ML VL/or syr IV PRN (13:15)
[2021-09-23] MEDS ORDERED: ONDANSETRON HCL 4 MG/2 ML VIAL IV PRN (13:15)
[2021-09-23] MEDS ORDERED: ACETAMINOPHEN 325 MG TAB PO PRN (13:15)
[2021-09-23] MEDS: HEPARIN SODIUM (PORCINE) 5000 UNITS/ML 1ML VIAL SC SCH ×2 (14:00→22:29)
[2021-09-23] MEDS: MIDODRINE HCL 10 MG TAB PO SCH ×2 (14:00→22:02)
[2021-09-23 15:30] LABS: % Iron Saturation 8.6 % (20-55)
[2021-09-23] MEDS ORDERED: INSULIN LISPRO 20 UNIT SC SCH (17:00)
[2021-09-23] MEDS: HYDROcodone-ACET 5/325MG TAB PO PRN ×2 (17:57→22:07)
[2021-09-23] MEDS: SODIUM CHLOR 0.9% PF (SALINE LOCK) 10ML VIAL/SYR IV SCH ×2 (18:25→22:02)
[2021-09-23] MEDS ORDERED: ATORVASTATIN 20 MG TAB PO SCH (22:00)
[2021-09-23] MEDS: GEMFIBROZIL 600 MG TAB PO SCH (22:01)
[2021-09-23 23:46] VITALS: BP 193/106
[2021-09-24] VITALS (8 sets, daily range): BP systolic 125–171; BP diastolic 52–98
[2021-09-24] MEDS: HYDROcodone-ACET 5/325MG TAB PO PRN (02:59)
[2021-09-24] MEDS: SODIUM CHLOR 0.9% PF (SALINE LOCK) 10ML VIAL/SYR IV SCH ×3 (05:42→21:35)
[2021-09-24] MEDS: MIDODRINE HCL 10 MG TAB PO SCH (05:42)
[2021-09-24] MEDS: HEPARIN SODIUM (PORCINE) 5000 UNITS/ML 1ML VIAL SC SCH (05:43)
[2021-09-24] MEDS: INSULIN LISPRO (HUMAN) 100 UNITS/ML ML SC SCH ×3 (06:34→17:00)
[2021-09-24] MEDS ORDERED: DEXTROSE (50%) 50ML SYRG IV PRN (09:45)
[2021-09-24] MEDS ORDERED: METOPROLOL SUCCINATE XL 50 MG TAB PO ONE (10:00)
[2021-09-24] MEDS ORDERED: LABETALOL HCL 5 MG/ML 4ML SYRINGE IV PRN (10:00)
[2021-09-24] MEDS ORDERED: INSULIN DEGLUDEC SC SCH (10:00)
[2021-09-24] MEDS ORDERED: FLUDROCORTISONE ACETATE 0.1 MG TAB PO ONE (10:45)
[2021-09-24] MEDS ORDERED: MORPHINE SULF 15mg ER tab PO ONE (10:50)
[2021-09-24] MEDS: CLOPIDOGREL BISULFATE 75 MG TAB PO SCH (10:50)
[2021-09-24] MEDS: HYDROcodone-ACET 10/325MG TAB PO PRN ×2 (10:52→21:40)
[2021-09-24] MEDS: GEMFIBROZIL 600 MG TAB PO SCH ×2 (10:52→21:39)
[2021-09-24] MEDS: InsuLIN REG 1unit/0.01ml Soln (100units/ml) SC SCH ×2 (11:30→17:00)
[2021-09-24] MEDS: ACCU-CHEK COMFORT CURVE STRIP VI SCH ×3 (11:30→21:40)
[2021-09-24] MEDS ORDERED: ATORVASTATIN 20 MG TAB PO SCH (22:00)
[2021-09-24] MEDS ORDERED: InsuLIN REG 1unit/0.01ml Soln (100units/ml) SC SCH (22:00)
[2021-09-25 05:00] VITALS: BP 176/98
[2021-09-25] MEDS: SODIUM CHLOR 0.9% PF (SALINE LOCK) 10ML VIAL/SYR IV SCH ×2 (06:22→14:00)
[2021-09-25] MEDS: ACCU-CHEK COMFORT CURVE STRIP VI SCH ×2 (06:39→11:30)
[2021-09-25] MEDS: InsuLIN REG 1unit/0.01ml Soln (100units/ml) SC SCH ×2 (06:39→11:30)
[2021-09-25] MEDS: INSULIN LISPRO (HUMAN) 100 UNITS/ML ML SC SCH ×2 (06:40→11:30)
[2021-09-25 07:28] LABS: Basophils # (auto) 0.1 10 ^3/uL (0-0.2); Eosinophils # (auto) 0.2 10 ^3/uL (0-0.8); Monocytes # (auto) 0.5 10 ^3/uL (0-1.3); Red Cell Distribution Width 17.1 % (11.8-14.3)
[2021-09-25 07:30] LABS: Basophils % (auto) 1.2 % (0.0-2.0); Eosinophils % (auto) 3.3 % (0.0-7.0); Hematocrit 28.2 % (41.0-53.0); Hemoglobin 8.9 g/dL (13.5-17.5); Lymphocytes # (auto) 1.6 10 ^3/uL (0.4-5.4); Lymphocytes % (auto) 22.5 % (10.0-50.0); Mean Corpuscular Hemoglobin 24.9 pg (28.0-32.0); Mean Corpuscular Hgb Conc. 31.6 g/dL (32.0-36.0); Mean Corpuscular Volume 78.7 fL (80.0-100.0); Monocytes % (auto) 7.4 % (0.0-12.0); Neutrophils # (auto) 4.5 10 ^3/uL (1.6-8.6); Neutrophils % (auto) 65.6 % (37.0-80.0); Red Blood Cells 3.58 10^6/uL (4.5-5.90); White Blood Cell 6.9 10^3/uL (4.4-10.8)
[2021-09-25 09:00] VITALS: BP 156/74
[2021-09-25] MEDS: GEMFIBROZIL 600 MG TAB PO SCH (09:08)
[2021-09-25] MEDS: CLOPIDOGREL BISULFATE 75 MG TAB PO SCH (09:09)
[2021-09-25] MEDS ORDERED: METOPROLOL SUCCINATE XL 50 MG TAB PO SCH (10:00)
[2021-09-25] MEDS ORDERED: MORPHINE SULF 15mg ER tab PO SCH (10:00)
[2021-09-25] MEDS ORDERED: FLUDROCORTISONE ACETATE 0.1 MG TAB PO SCH (10:00)
[2021-09-25] MEDS ORDERED: METO-6 PO (10:17)
[2021-09-25] MEDS ORDERED: FLU01T PO (10:17)
[2021-09-25 11:42] VITALS: BP 156/74
[2021-09-25 12:47] LABS: BUN/Creatinine Ratio 10.5; Potassium 3.4 mmol/L (3.5-5.1)
[2021-09-25 12:56] VITALS: BP 137/64
== END 2021-09-25 14:10 | disposition home or self-care (01) | DRG 48 ==
LOC: EDBD 19:59 → ER 19:59 → TELE 09-23 13:25 → TELE-CENTR 09-23 22:34
PROVIDERS: ADMIT Internal Medicine; ATTEND Internal Medicine
DX: E11.43 Type 2 diabetes mellitus with diabetic autonomic (poly)neuropathy (principal); D64.9 Anemia, unspecified; E78.00 Pure hypercholesterolemia, unspecified; E78.5 Hyperlipidemia, unspecified; F11.20 Opioid dependence, uncomplicated; F17.210 Nicotine dependence, cigarettes, uncomplicated; I10 Essential (primary) hypertension; J44.9 Chronic obstructive pulmonary disease, unspecified; W18.39XA Other fall on same level, initial encounter; I25.10 Atherosclerotic heart disease of native coronary artery without angina pectoris; Z20.822 Contact with and (suspected) exposure to COVID-19; I25.2 Old myocardial infarction; Z87.440 Personal history of urinary (tract) infections; Z95.5 Presence of coronary angioplasty implant and graft; Z83.3 Family history of diabetes mellitus; Z80.8 Family history of malignant neoplasm of other organs or systems; Z82.49 Family history of ischemic heart disease and other diseases of the circulatory system; Y93.89 Activity, other specified; Y92.89 Other specified places as the place of occurrence of the external cause; Y99.8 Other external cause status; G90.9 Disorder of the autonomic nervous system, unspecified; Z79.4 Long term (current) use of insulin
CPT/HCPCS: 36415; 70450; 71045; 80048; 80053; 82728; 82962; 83540; 83550; 83735; 84484; 85025; 87081; 93005; 93971; G0378; J1815; J3490

== ENCOUNTER 2021-10-05 14:50 | Inpatient (IN) | payer MEDICAID ==
[~2021-10-05] VITALS: Ht 177.8 cm; Wt 110.6 kg
[~2021-10-05 14:50] MED LIST changes: +FLU01T PO; +METO-6 PO
[2021-10-05 16:29] LABS: Basophils # (auto) 0.1 10 ^3/uL (0-0.2); Basophils % (auto) 1.1 % (0.0-2.0); Eosinophils # (auto) 0.2 10 ^3/uL (0-0.8); Eosinophils % (auto) 2.4 % (0.0-7.0); Hematocrit 29.9 % (41.0-53.0); Hemoglobin 9.3 g/dL (13.5-17.5); Lymphocytes # (auto) 1.3 10 ^3/uL (0.4-5.4); Mean Corpuscular Hemoglobin 24.6 pg (28.0-32.0); Mean Corpuscular Hgb Conc. 31.1 g/dL (32.0-36.0); Mean Corpuscular Volume 79.1 fL (80.0-100.0); Monocytes # (auto) 0.6 10 ^3/uL (0-1.3); Monocytes % (auto) 7.7 % (0.0-12.0); Neutrophils # (auto) 5.2 10 ^3/uL (1.6-8.6); Neutrophils % (auto) 70.8 % (37.0-80.0); Red Blood Cells 3.78 10^6/uL (4.5-5.90); Red Cell Distribution Width 17.8 % (11.8-14.3); White Blood Cell 7.3 10^3/uL (4.4-10.8)
[2021-10-05 16:42] LABS: Albumin 1.3 g/dL (3.4-5.0); Calcium 7.6 mg/dL (8.5-10.1); Potassium 3.6 mmol/L (3.5-5.1)
[2021-10-05 16:45] LABS: BUN/Creatinine Ratio 10.8; Bilirubin, Total 0.1 mg/dL (0.2-1.0); Total Protein 5.9 g/dL (6.4-8.2)
[2021-10-05] MEDS ORDERED: DEXTROSE (50%) 50ML SYRG IV PRN (21:45)
[2021-10-05] MEDS ORDERED: ONDANSETRON HCL 4 MG/2 ML VIAL IV PRN (21:45)
[2021-10-05] MEDS ORDERED: ACETAMINOPHEN 325 MG TAB PO PRN (21:45)
[2021-10-05] MEDS ORDERED: DOCUSATE SOD 100 MG CAP PO PRN (21:45)
[2021-10-05] MEDS: InsuLIN REG 1unit/0.01ml Soln (100units/ml) SC SCH (22:00)
[2021-10-06] MEDS ORDERED: MORPHINE SULFATE INJ 2 MG/ml SYRG IV PRN
[2021-10-06] MEDS ORDERED: NITROGLYCERIN 0.4 MG SL TAB SL PRN
[2021-10-06 06:52] LABS: Basophils # (auto) 0.1 10 ^3/uL (0-0.2); Eosinophils # (auto) 0.2 10 ^3/uL (0-0.8); Lymphocytes # (auto) 1.7 10 ^3/uL (0.4-5.4); Nucleated Red Blood Cells % 0.1 %
[2021-10-06 06:54] LABS: Basophils % (auto) 1.4 % (0.0-2.0); Eosinophils % (auto) 3.2 % (0.0-7.0); Hematocrit 29.8 % (41.0-53.0); Hemoglobin 9.8 g/dL (13.5-17.5); Lymphocytes % (auto) 24.2 % (10.0-50.0); Mean Corpuscular Hemoglobin 25.6 pg (28.0-32.0); Mean Corpuscular Hgb Conc. 32.7 g/dL (32.0-36.0); Mean Corpuscular Volume 78.2 fL (80.0-100.0); Monocytes # (auto) 0.5 10 ^3/uL (0-1.3); Monocytes % (auto) 7.1 % (0.0-12.0); Neutrophils # (auto) 4.5 10 ^3/uL (1.6-8.6); Neutrophils % (auto) 64.1 % (37.0-80.0); Red Blood Cells 3.81 10^6/uL (4.5-5.90); Red Cell Distribution Width 17.7 % (11.8-14.3)
[2021-10-06 07:07] LABS: Potassium 3.6 mmol/L (3.5-5.1)
[2021-10-06 07:16] LABS: Albumin 1.5 g/dL (3.4-5.0); BUN/Creatinine Ratio 13.7; Bilirubin, Total 0.2 mg/dL (0.2-1.0); Calcium 7.7 mg/dL (8.5-10.1); Total Protein 5.9 g/dL (6.4-8.2)
[2021-10-06] MEDS: ALBUMIN 25% 50 ML IV SCH ×3 (07:40→14:27)
[2021-10-06] MEDS: SODIUM CHLOR 0.9% PF (SALINE LOCK) 10ML VIAL/SYR IV SCH ×4 (07:41→21:17)
[2021-10-06] MEDS: ACCU-CHEK COMFORT CURVE STRIP VI SCH ×5 (07:41→21:17)
[2021-10-06] MEDS: ENOXAPARIN SOD 40 MG/0.4 ML SYRINGE SC SCH (07:43)
[2021-10-06] MEDS: InsuLIN REG 1unit/0.01ml Soln (100units/ml) SC SCH ×4 (09:01→21:19)
[2021-10-06] MEDS: ASPirin 81 mg TAB PO SCH (09:01)
[2021-10-06] MEDS: HYDROcodone-ACET 5/325MG TAB PO PRN ×2 (09:02→19:53)
[2021-10-06] MEDS: FAMOTIDINE (10MG/ML) 2ML VL IV SCH (10:00)
[2021-10-06] MEDS: MULTIPLE VITAMIN TAB PO SCH (10:00)
[2021-10-06] MEDS ORDERED: diphenhdrAMINE HCL 50 MG/1 ML VL IV ONE (14:45)
[2021-10-06] MEDS: HYDROmorphone HCL 2 MG/ML VL/or syr IV PRN ×2 (14:45→21:16)
[2021-10-06 22:00] VITALS: BP 164/85
[2021-10-07] MEDS ORDERED: HYDROmorphone HCL 2 MG/ML VL/or syr IV ONE
[2021-10-07] MEDS: HYDROcodone-ACET 5/325MG TAB PO PRN ×2 (01:37→06:08)
[2021-10-07] MEDS: HYDROmorphone HCL 2 MG/ML VL/or syr IV PRN ×2 (03:18→09:36)
[2021-10-07 05:00] VITALS: BP 169/74
[2021-10-07] MEDS: SODIUM CHLOR 0.9% PF (SALINE LOCK) 10ML VIAL/SYR IV SCH ×2 (06:07→13:18)
[2021-10-07] MEDS: InsuLIN REG 1unit/0.01ml Soln (100units/ml) SC SCH ×2 (06:08→11:30)
[2021-10-07] MEDS: ACCU-CHEK COMFORT CURVE STRIP VI SCH ×2 (06:08→08:42)
[2021-10-07 06:49] LABS: Basophils # (auto) 0.1 10 ^3/uL (0-0.2); Eosinophils # (auto) 0.2 10 ^3/uL (0-0.8); Lymphocytes # (auto) 1.9 10 ^3/uL (0.4-5.4); Monocytes # (auto) 0.4 10 ^3/uL (0-1.3); Neutrophils # (auto) 3.1 10 ^3/uL (1.6-8.6); White Blood Cell 5.7 10^3/uL (4.4-10.8)
[2021-10-07 06:52] LABS: Basophils % (auto) 1.4 % (0.0-2.0); Hematocrit 29.6 % (41.0-53.0); Hemoglobin 9.6 g/dL (13.5-17.5); Mean Corpuscular Hemoglobin 25.2 pg (28.0-32.0); Mean Corpuscular Hgb Conc. 32.2 g/dL (32.0-36.0); Mean Corpuscular Volume 78.3 fL (80.0-100.0); Monocytes % (auto) 6.8 % (0.0-12.0); Neutrophils % (auto) 54.8 % (37.0-80.0); Red Blood Cells 3.79 10^6/uL (4.5-5.90); Red Cell Distribution Width 17.2 % (11.8-14.3)
[2021-10-07 06:57] LABS: BUN/Creatinine Ratio 17.3; Calcium 7.7 mg/dL (8.5-10.1); Potassium 3.5 mmol/L (3.5-5.1)
[2021-10-07 08:00] VITALS: BP 158/84
[2021-10-07] MEDS: ENOXAPARIN SOD 40 MG/0.4 ML SYRINGE SC SCH (08:42)
[2021-10-07] MEDS: ASPirin 81 mg TAB PO SCH (08:42)
[2021-10-07] MEDS: FAMOTIDINE (10MG/ML) 2ML VL IV SCH (08:42)
[2021-10-07] MEDS: MULTIPLE VITAMIN TAB PO SCH (08:42)
[2021-10-07 09:00] VITALS: BP 158/84
[2021-10-07 11:51] VITALS: BP 148/80
[2021-10-07 13:00] VITALS: BP 120/78
[2021-10-07 13:17] VITALS: BP 146/95
[2021-10-07] MEDS ORDERED: HYDROcodone-ACET 10/325MG TAB PO SCH (13:45)
[2021-10-07] MEDS ORDERED: MORPHINE SULF 15mg ER tab PO SCH (22:00)
== END 2021-10-07 15:45 | disposition home or self-care (01) | DRG 48 ==
LOC: EDBD 14:50 → ER 14:50 → EDUNIT# 14:50 → TELE 23:49 → TELE-EAST 10-06 17:18
PROVIDERS: ADMIT Nurse Practitioner Family; ATTEND Internal Medicine Pulmonary Disease
DX: G90.8 Other disorders of autonomic nervous system (principal); S09.90XA Unspecified injury of head, initial encounter; E88.09 Other disorders of plasma-protein metabolism, not elsewhere classified; D64.9 Anemia, unspecified; E11.9 Type 2 diabetes mellitus without complications; E78.5 Hyperlipidemia, unspecified; Z20.822 Contact with and (suspected) exposure to COVID-19; F17.210 Nicotine dependence, cigarettes, uncomplicated; I10 Essential (primary) hypertension; I25.10 Atherosclerotic heart disease of native coronary artery without angina pectoris; J44.9 Chronic obstructive pulmonary disease, unspecified; W18.39XA Other fall on same level, initial encounter; Y93.89 Activity, other specified; I25.2 Old myocardial infarction; Y92.098 Other place in other non-institutional residence as the place of occurrence of the external cause; Y99.8 Other external cause status; Z80.9 Family history of malignant neoplasm, unspecified; Z82.49 Family history of ischemic heart disease and other diseases of the circulatory system; Z83.3 Family history of diabetes mellitus; Z95.1 Presence of aortocoronary bypass graft
CPT/HCPCS: 36415; 70450; 80048; 80053; 82962; 83036; 84484; 85025; 93005; 96374; 96375; G0378; J1815; J2405; J3490

== ENCOUNTER 2022-06-22 14:53 | Emergency (ER) | payer MEDICAID ==
[~2022-06-22] VITALS: Ht 185.4 cm; Wt 113.6 kg
[2022-06-22] MEDS ORDERED: KETOROLAC TROMETH 60MG/2ML VIAL IM ONE (15:30)
[2022-06-22 20:29] LABS: Urine Bacteria NONE SEEN /hpf (None Seen); Urine Blood 2+ /uL (Negative); Urine Mucus FEW (None Seen); Urine Specific Gravity 1.018 (1.001-1.035); Urine WBC 336 /hpf (0 - 3); Urine WBC Clumps PRESENT /hpf (None Seen)
[2022-06-22] MEDS ORDERED: levoFLOXacin 250 MG TAB PO ONE (21:30)
[2022-06-22 21:38] VITALS: BP 177/83
[2022-06-22] MEDS ORDERED: IBUP800T26 PO (21:44)
[2022-06-22] MEDS ORDERED: LEVO750T8 PO ×2 (21:44)
[2022-06-22] MEDS ORDERED: BACDST PO (21:46)
== END 2022-06-22 22:31 | disposition home or self-care (01) ==
LOC: ER 14:53
DX: N39.0 Urinary tract infection, site not specified (principal); I25.10 Atherosclerotic heart disease of native coronary artery without angina pectoris; J44.9 Chronic obstructive pulmonary disease, unspecified; E11.9 Type 2 diabetes mellitus without complications; E78.5 Hyperlipidemia, unspecified; I10 Essential (primary) hypertension; I25.2 Old myocardial infarction; F17.210 Nicotine dependence, cigarettes, uncomplicated; Z79.4 Long term (current) use of insulin; Z79.01 Long term (current) use of anticoagulants; Z79.899 Other long term (current) drug therapy
CPT/HCPCS: 81001; 96372; 99283; J1885

== ENCOUNTER 2022-11-04 13:24 | Inpatient (IN) | payer MEDICAID ==
[~2022-11-04] VITALS: Ht 185.4 cm; Wt 117.0 kg
[~2022-11-04 13:24] MED LIST changes: +BACDST PO; -GEMF-19 PO; +GEMF-66 PO; +IBUP-1455 PO
[2022-11-04 14:40] LABS: Urine Bacteria NONE SEEN /hpf (None Seen); Urine Blood 2+ /uL (Negative); Urine Clarity CLOUDY (Clear); Urine Color Yellow (Yellow); Urine Protein, UAD 2+ (Negative); Urine Urobilinogen Normal (Negative); Urine WBC 1043 /hpf (0 - 3); Urine WBC Clumps PRESENT /hpf (None Seen); Urine pH 5.5 (5.0-8.0)
[2022-11-04 14:42] LABS: Basophils # (auto) 0.1 10 ^3/uL (0-0.2); Basophils % (auto) 1.3 % (0.0-2.0); Eosinophils # (auto) 0.2 10 ^3/uL (0-0.8); Eosinophils % (auto) 2.6 % (0.0-7.0); Hematocrit 37.5 % (41.0-53.0); Hemoglobin 12.5 g/dL (13.5-17.5); Lymphocytes # (auto) 1.4 10 ^3/uL (0.4-5.4); Lymphocytes % (auto) 15.7 % (10.0-50.0); Mean Corpuscular Hemoglobin 30.3 pg (28.0-32.0); Mean Corpuscular Hgb Conc. 33.3 g/dL (32.0-36.0); Monocytes # (auto) 0.5 10 ^3/uL (0-1.3); Monocytes % (auto) 5.3 % (0.0-12.0); Neutrophils # (auto) 6.5 10 ^3/uL (1.6-8.6); Neutrophils % (auto) 75.1 % (37.0-80.0); Red Blood Cells 4.13 10^6/uL (4.5-5.90); Red Cell Distribution Width 14.1 % (11.8-14.3); White Blood Cell 8.6 10^3/uL (4.4-10.8)
[2022-11-04 15:03] LABS: Albumin 2.8 g/dL (3.4-5.0); Calcium 8.2 mg/dL (8.5-10.1); Potassium 4.6 mmol/L (3.5-5.1)
[2022-11-04 15:18] LABS: Bilirubin, Total 0.5 mg/dL (0.2-1.0)
[2022-11-04 15:43] LABS: BUN/Creatinine Ratio 16.9 (10.0-20.0); Total Protein 6.4 g/dL (6.4-8.2)
[2022-11-04] MEDS ORDERED: CEFTRIAXONE SODIUM 2 GM in D5W 5% 100 ML IV ONE (15:45)
[2022-11-04] MEDS ORDERED: NITROGLYCERIN 0.4 MG SL TAB SL PRN (18:30)
[2022-11-04] MEDS ORDERED: MORPHINE SULFATE INJ 2 MG/ml SYRG IV PRN (18:30)
[2022-11-04] MEDS ORDERED: DEXTROSE (50%) 50ML SYRG IV PRN (19:00)
[2022-11-04 19:40] VITALS: PULSE 62; RESP 27; O2SAT 95
[2022-11-04 19:44] LABS: Amphetamine Screen, Urine NEGATIVE (NEGATIVE); Barbiturate Scree,Urine NEGATIVE (NEGATIVE); Benzodiazephine Screen, Urine NEGATIVE (NEGATIVE); Cannabinoid Screen, Urine NEGATIVE (NEGATIVE); Cocaine Screen, Urine NEGATIVE (NEGATIVE); Opiate Scree,Urine NEGATIVE (NEGATIVE); Phencyclidine Screen, Urine NEGATIVE (NEGATIVE)
[2022-11-04] MEDS: HYDROcodone-ACET 10/325MG TAB PO PRN (22:00)
[2022-11-05] MEDS: ACCU-CHEK COMFORT CURVE STRIP VI SCH ×3 (00:17→14:41)
[2022-11-05] MEDS ORDERED: GEMF600T PO (03:41)
[2022-11-05] MEDS ORDERED: ASPI1TAB20 PO (03:41)
[2022-11-05] MEDS ORDERED: PREG200C19 PO (03:41)
[2022-11-05] MEDS ORDERED: ATOR20TA PO (03:46)
[2022-11-05] MEDS ORDERED: CHOL20007 PO (03:46)
[2022-11-05] MEDS ORDERED: FERR1TAB17 PO (03:46)
[2022-11-05] MEDS ORDERED: FENO145T27 PO (03:46)
[2022-11-05] MEDS ORDERED: FINE20TA PO (03:46)
[2022-11-05] MEDS ORDERED: FURO40TA4 PO (03:46)
[2022-11-05] MEDS ORDERED: DAPA1TAB4 PO (03:46)
[2022-11-05] MEDS: InsuLIN REG 1unit/0.01ml Soln (100units/ml) SC SCH ×3 (05:43→12:00)
[2022-11-05 06:11] LABS: Basophils # (auto) 0.2 10 ^3/uL (0-0.2); Basophils % (auto) 2.1 % (0.0-2.0); Eosinophils # (auto) 0.4 10 ^3/uL (0-0.8); Eosinophils % (auto) 4.6 % (0.0-7.0); Hematocrit 34.9 % (41.0-53.0); Hemoglobin 11.5 g/dL (13.5-17.5); Lymphocytes # (auto) 2.1 10 ^3/uL (0.4-5.4); Lymphocytes % (auto) 24.9 % (10.0-50.0); Mean Corpuscular Hgb Conc. 32.9 g/dL (32.0-36.0); Monocytes # (auto) 0.5 10 ^3/uL (0-1.3); Monocytes % (auto) 6.4 % (0.0-12.0); Neutrophils # (auto) 5.3 10 ^3/uL (1.6-8.6); Nucleated Red Blood Cells % 0.1 %; Red Blood Cells 3.83 10^6/uL (4.5-5.90); Red Cell Distribution Width 14.8 % (11.8-14.3); White Blood Cell 8.6 10^3/uL (4.4-10.8)
[2022-11-05 06:42] LABS: Potassium 4.4 mmol/L (3.5-5.1)
[2022-11-05 06:48] LABS: Albumin 2.4 g/dL (3.4-5.0); BUN/Creatinine Ratio 19.2 (10.0-20.0); Calcium 7.9 mg/dL (8.7-10.4)
[2022-11-05 06:51] LABS: Total Protein 5.6 g/dL (6.4-8.2)
[2022-11-05] MEDS ORDERED: cefTRIAXone 1GM/50ML D5W 50 ML IV ONE (08:00)
[2022-11-05 09:08] LABS: Bilirubin, Total 0.3 mg/dL (0.2-1.0)
[2022-11-05] MEDS ORDERED: METOPROLOL SUCCINATE XL 50 MG TAB PO SCH (10:00)
[2022-11-05] MEDS ORDERED: ASPirin-EC 81 mg tab PO SCH (10:00)
[2022-11-05] MEDS ORDERED: CLOPIDOGREL BISULFATE 75 MG TAB PO SCH (10:00)
[2022-11-05] MEDS ORDERED: FLUDROCORTISONE ACETATE 0.1 MG TAB PO SCH (10:00)
[2022-11-05] MEDS: HYDROcodone-ACET 10/325MG TAB PO PRN (12:16)
[2022-11-05 13:00] VITALS: BP 134/71; PULSE 62; RESP 18; TEMP 97.9; O2SAT 98
[2022-11-05] MEDS ORDERED: CEPH250C PO (13:37)
[2022-11-05] MEDS ORDERED: cefTRIAXone 1GM/50ML D5W 50 ML IV SCH (20:00)
[2022-11-06] MEDS ORDERED: cefTRIAXone 1GM/50ML D5W 50 ML IV SCH (10:00)
[2022-11-07 09:49] LABS: Hepatitis B Surface Antigen Negative (Negative)
[2022-11-07 10:10] LABS: Hepatitis C Antibody Negative (Negative)
== END 2022-11-05 15:13 | disposition home or self-care (01) | DRG 48 ==
LOC: ER 13:24 → OVERFLOW 18:27 → EAST 11-05 03:30
PROVIDERS: ADMIT Internal Medicine; ATTEND Emergency Medicine
DX: G90.8 Other disorders of autonomic nervous system (principal); N17.0 Acute kidney failure with tubular necrosis; E11.65 Type 2 diabetes mellitus with hyperglycemia; I95.1 Orthostatic hypotension; E66.9 Obesity, unspecified; N39.0 Urinary tract infection, site not specified; F17.210 Nicotine dependence, cigarettes, uncomplicated; I11.0 Hypertensive heart disease with heart failure; I50.32 Chronic diastolic (congestive) heart failure; M54.9 Dorsalgia, unspecified; I25.10 Atherosclerotic heart disease of native coronary artery without angina pectoris; K70.10 Alcoholic hepatitis without ascites; F10.10 Alcohol abuse, uncomplicated; E11.42 Type 2 diabetes mellitus with diabetic polyneuropathy; Y90.9 Presence of alcohol in blood, level not specified; E78.5 Hyperlipidemia, unspecified; Z79.1 Long term (current) use of non-steroidal anti-inflammatories (NSAID); Z79.899 Other long term (current) drug therapy; Z79.4 Long term (current) use of insulin; Z80.9 Family history of malignant neoplasm, unspecified; Z82.49 Family history of ischemic heart disease and other diseases of the circulatory system; Z83.3 Family history of diabetes mellitus; Z68.34 Body mass index [BMI] 34.0-34.9, adult
CPT/HCPCS: 36415; 70450; 80053; 80307; 81001; 82607; 82962; 83036; 84443; 84484; 85025; 86803; 87081; 87340; 93005; 93886; G0378; J0696; J7060

== ENCOUNTER 2023-01-03 13:29 | Emergency (ER) | payer MEDICAID ==
[~2023-01-03] VITALS: Ht 185.4 cm; Wt 114.0 kg
[~2023-01-03 13:29] MED LIST changes: +ASPI1TAB20 PO; -ATOR10TA52 PO; +ATOR20TA PO; -BACDST PO; +CEPH250C PO; +CHOL20007 PO; +DAPA1TAB4 PO; +FENO145T27 PO; +FERR1TAB17 PO; +FURO40TA4 PO; -HYDR-4798 PO; -IBUP-1455 PO; -INSU100I2 SC; -LINE1TAB6 PO; -MORP1TAB12 PO; -NOR10T; -PREG150C PO
[2023-01-03 14:21] VITALS: BP 135/85; PULSE 71; RESP 16; TEMP 97.4; O2SAT 94
[2023-01-03] MEDS ORDERED: TETANUS-DIPTH-ACEL PERTUSSIS 0.5ML SYR Tdap IM ONE (14:30)
[2023-01-03] MEDS ORDERED: ACET500T58 PO (15:05)
[2023-01-03] MEDS ORDERED: CEPH250C PO (15:05)
== END 2023-01-03 15:56 | disposition home or self-care (01) ==
LOC: ER 13:29
DX: S60.142A Contusion of left ring finger with damage to nail, initial encounter (principal); E11.9 Type 2 diabetes mellitus without complications; E78.5 Hyperlipidemia, unspecified; F17.210 Nicotine dependence, cigarettes, uncomplicated; Z79.82 Long term (current) use of aspirin; Z79.4 Long term (current) use of insulin; Z79.01 Long term (current) use of anticoagulants; Z79.899 Other long term (current) drug therapy; W23.0XXA Caught, crushed, jammed, or pinched between moving objects, initial encounter; Y93.89 Activity, other specified; Y92.89 Other specified places as the place of occurrence of the external cause; Y99.8 Other external cause status
CPT/HCPCS: 11740; 73130; 90471; 90715

== ENCOUNTER 2023-04-12 12:19 | Inpatient (IN) | payer MEDICAID ==
[~2023-04-12] VITALS: Ht 185.4 cm; Wt 117.3 kg
[~2023-04-12 12:19] MED LIST changes: +ACET500T58 PO
[2023-04-12] MEDS ORDERED: HYDROmorphone HCL 2 MG/ML VL/or syr IM ONE (14:30)
[2023-04-12 14:42] LABS: Urine Bacteria MOD /hpf (None Seen); Urine Blood TRACE /uL (Negative); Urine Clarity HAZY (Clear); Urine Protein, UAD 2+ (Negative); Urine Specific Gravity 1.008 (1.001-1.035); Urine Urobilinogen Normal (Negative); Urine WBC 31 /hpf (0 - 3); Urine WBC Clumps PRESENT /hpf (None Seen); Urine pH 5.5 (5.0-8.0)
[2023-04-12 14:49] LABS: Urine Color Yellow (Yellow)
[2023-04-12 15:05] LABS: Basophils # (auto) 0.1 10 ^3/uL (0-0.2); Basophils % (auto) 0.7 % (0.0-2.0); Eosinophils # (auto) 0.2 10 ^3/uL (0-0.8); Eosinophils % (auto) 2.9 % (0.0-7.0); Hematocrit 38.6 % (41.0-53.0); Hemoglobin 12.6 g/dL (13.5-17.5); Lymphocytes # (auto) 1.3 10 ^3/uL (0.4-5.4); Lymphocytes % (auto) 18.4 % (10.0-50.0); Mean Corpuscular Hemoglobin 29.9 pg (28.0-32.0); Mean Corpuscular Hgb Conc. 32.7 g/dL (32.0-36.0); Mean Corpuscular Volume 91.5 fL (80.0-100.0); Monocytes # (auto) 0.6 10 ^3/uL (0-1.3); Monocytes % (auto) 7.9 % (0.0-12.0); Neutrophils % (auto) 70.1 % (37.0-80.0); Red Blood Cells 4.22 10^6/uL (4.5-5.90); Red Cell Distribution Width 13.7 % (11.8-14.3); White Blood Cell 7.1 10^3/uL (4.4-10.8)
[2023-04-12 15:21] LABS: Alanine Aminotransferase 35 U/L (7-40); Albumin 3.5 g/dL (3.2-4.8); Alkaline Phosphatase 108 U/L (46-116); Anion Gap 6 (5-15); Aspartate Aminotransferase 46 U/L (13-40); BUN/Creatinine Ratio 16.4 (10.0-20.0); Blood Urea Nitrogen 26 mg/dL (9-23); Calcium 8.2 mg/dL (8.7-10.4); Carbon Dioxide 26 mmol/L (20-30); Chloride 110 mmol/L (98-107); Glucose 80 mg/dL (74-106); Lipase 24 U/L (12-53); Potassium 3.8 mmol/L (3.5-5.1); Sodium 142 mmol/L (136-145)
[2023-04-12 15:22] LABS: Bilirubin, Total 0.3 mg/dL (0.2-1.0); Total Protein 6.4 g/dL (5.7-8.2)
[2023-04-12] MEDS ORDERED: DEXTROSE (50%) 50ML SYRG IV PRN (17:15)
[2023-04-12] MEDS ORDERED: ERGOCALCIFEROL 50,000 UNIT(1.25MG) CAP PO SCH (17:15)
[2023-04-12] MEDS ORDERED: DOCUSATE SOD 100 MG CAP PO PRN (17:45)
[2023-04-12] MEDS ORDERED: ONDANSETRON HCL 4 MG/2 ML VIAL IV PRN (17:45)
[2023-04-12] MEDS ORDERED: PIPERACILLIN-TAZOB 3.375GM 100 ML IV ONE (17:45)
[2023-04-12] MEDS ORDERED: LACTATED RINGER'S 1,000 ML IV ONE (18:00)
[2023-04-12 19:38] VITALS: PULSE 85; RESP 16; O2SAT 97
[2023-04-12] MEDS: InsuLIN REG 1unit/0.01ml Soln (100units/ml) SC SCH (22:00)
[2023-04-12] MEDS: INSULIN LANTUS (GLARGINE) 1 /0.01ml (100units/ml) SC SCH (22:00)
[2023-04-12] MEDS: ACCU-CHEK COMFORT CURVE STRIP VI SCH (22:10)
[2023-04-12] MEDS: SODIUM CHLOR 0.9% PF (SALINE LOCK) 10ML VIAL/SYR IV SCH (22:10)
[2023-04-12] MEDS: GEMFIBROZIL 600 MG TAB PO SCH (22:15)
[2023-04-12] MEDS: HYDROcodone-ACET 5/325MG TAB PO PRN (22:15)
[2023-04-13] MEDS: PIPERACILLIN-TAZOB 3.375GM 100 ML IV SCH ×3 (02:19→18:00)
[2023-04-13] MEDS: SODIUM CHLOR 0.9% PF (SALINE LOCK) 10ML VIAL/SYR IV SCH ×3 (06:08→22:00)
[2023-04-13] MEDS: ACCU-CHEK COMFORT CURVE STRIP VI SCH ×4 (07:00→22:26)
[2023-04-13] MEDS: InsuLIN REG 1unit/0.01ml Soln (100units/ml) SC SCH ×4 (07:00→22:26)
[2023-04-13] MEDS: MORPHINE SULFATE INJ 2 MG/ml SYRG IV PRN ×5 (08:40→22:37)
[2023-04-13 09:04] VITALS: PULSE 80; RESP 16; O2SAT 98
[2023-04-13] MEDS ORDERED: Fenofibrate 145MG PO SCH (10:00)
[2023-04-13] MEDS ORDERED: FUROSEMIDE 40 MG TAB PO SCH (10:00)
[2023-04-13] MEDS: ACETAMINOPHEN 325 MG TAB PO PRN ×3 (10:13→11:30)
[2023-04-13] MEDS ORDERED: IBUPROFEN 800 MG TAB PO PRN (11:00)
[2023-04-13] MEDS: ASPirin-EC 81 mg tab PO SCH (11:01)
[2023-04-13] MEDS: CLOPIDOGREL BISULFATE 75 MG TAB PO SCH (11:02)
[2023-04-13] MEDS: ENOXAPARIN SOD 40 MG/0.4 ML SYRINGE SC SCH (11:03)
[2023-04-13] MEDS: GEMFIBROZIL 600 MG TAB PO SCH ×2 (11:03→21:38)
[2023-04-13] MEDS: FLUDROCORTISONE ACETATE 0.1 MG TAB PO SCH (11:25)
[2023-04-13] MEDS: METOPROLOL SUCCINATE XL 50 MG TAB PO SCH (11:26)
[2023-04-13 12:31] VITALS: BP 144/74; PULSE 88; RESP 16; TEMP 99.9; O2SAT 98
[2023-04-13 13:00] VITALS: BP 133/66; PULSE 94; RESP 16; TEMP 98.5; O2SAT 97
[2023-04-13 16:50] VITALS: BP 134/80; PULSE 78; RESP 18; TEMP 98.3
[2023-04-13 17:00] VITALS: BP 128/86; PULSE 91; RESP 14; TEMP 98.3; O2SAT 99
[2023-04-13] MEDS ORDERED: VANCOMYCIN PER PHARMACY 0 MG IV SCH (17:30)
[2023-04-13] MEDS ORDERED: VANCOMYCIN 1GM/200ML 200 ML IV SCH (18:00)
[2023-04-13] MEDS: HYDROcodone-ACET 5/325MG TAB PO PRN (18:21)
[2023-04-13 20:00] VITALS: BP 140/80; PULSE 74; RESP 18; TEMP 98.3; O2SAT 95
[2023-04-13 21:05] LABS: Amphetamine Screen, Urine Neg (NEGATIVE); Barbiturate Scree,Urine Neg (NEGATIVE); Benzodiazephine Screen, Urine Neg (NEGATIVE); Cocaine Screen, Urine Neg (NEGATIVE); Opiate Scree,Urine Neg (NEGATIVE)
[2023-04-13 21:06] LABS: Cannabinoid Screen, Urine Neg (NEGATIVE); Phencyclidine Screen, Urine Neg (NEGATIVE)
[2023-04-13 21:08] LABS: Urine Bacteria FEW /hpf (None Seen); Urine Blood 2+ /uL (Negative); Urine Clarity HAZY (Clear); Urine Color Yellow (Yellow); Urine Protein, UAD 2+ (Negative); Urine Specific Gravity 1.012 (1.001-1.035); Urine Urobilinogen Normal (Negative); Urine WBC 55 /hpf (0 - 3)
[2023-04-13] MEDS: diphenhdrAMINE HCL 25 MG CAP PO PRN (21:38)
[2023-04-13] MEDS: ATORVASTATIN 20 MG TAB PO SCH (21:38)
[2023-04-13] MEDS: VANCOMYCIN 1GM/200ML 200 ML IV SCH (22:09)
[2023-04-13] MEDS: INSULIN LANTUS (GLARGINE) 1 /0.01ml (100units/ml) SC SCH (22:25)
[2023-04-14] VITALS (7 sets, daily range): BP systolic 114–156; BP diastolic 61–85; PULSE 57–89; RESP 16–73; TEMP 96.7–98.7; O2SAT 74–98
[2023-04-14] MEDS: MORPHINE SULFATE INJ 2 MG/ml SYRG IV PRN ×4 (02:21→12:52)
[2023-04-14] MEDS: PIPERACILLIN-TAZOB 3.375GM 100 ML IV SCH ×2 (02:24→09:57)
[2023-04-14 05:50] LABS: Basophils # (auto) 0 10 ^3/uL (0-0.2); Basophils % (auto) 0.8 % (0.0-2.0); Eosinophils # (auto) 0.5 10 ^3/uL (0-0.8); Eosinophils % (auto) 7.5 % (0.0-7.0); Hematocrit 33.6 % (41.0-53.0); Hemoglobin 11.2 g/dL (13.5-17.5); Lymphocytes # (auto) 1.6 10 ^3/uL (0.4-5.4); Lymphocytes % (auto) 26.9 % (10.0-50.0); Mean Corpuscular Hemoglobin 30.5 pg (28.0-32.0); Mean Corpuscular Hgb Conc. 33.2 g/dL (32.0-36.0); Mean Corpuscular Volume 91.7 fL (80.0-100.0); Monocytes # (auto) 0.7 10 ^3/uL (0-1.3); Monocytes % (auto) 12.1 % (0.0-12.0); Neutrophils # (auto) 3.2 10 ^3/uL (1.6-8.6); Neutrophils % (auto) 52.7 % (37.0-80.0); Red Blood Cells 3.67 10^6/uL (4.5-5.90); Red Cell Distribution Width 13.4 % (11.8-14.3); White Blood Cell 6.1 10^3/uL (4.4-10.8)
[2023-04-14] MEDS: SODIUM CHLOR 0.9% PF (SALINE LOCK) 10ML VIAL/SYR IV SCH ×3 (05:51→22:35)
[2023-04-14 06:00] LABS: Chloride 110 mmol/L (98-107); Potassium 3.4 mmol/L (3.5-5.1); Sodium 140 mmol/L (136-145)
[2023-04-14 06:01] LABS: Anion Gap 5 (5-15); Calcium 8.3 mg/dL (8.5-10.1); Carbon Dioxide 25 mmol/L (20-30)
[2023-04-14 06:06] LABS: Blood Urea Nitrogen 26 mg/dL (9-23); Glucose 68 mg/dL (74-106)
[2023-04-14] MEDS: InsuLIN REG 1unit/0.01ml Soln (100units/ml) SC SCH ×4 (06:26→22:00)
[2023-04-14] MEDS: ACCU-CHEK COMFORT CURVE STRIP VI SCH ×4 (06:28→22:41)
[2023-04-14] MEDS: VANCOMYCIN 1GM/200ML 200 ML IV SCH ×2 (08:09→22:35)
[2023-04-14] MEDS: GEMFIBROZIL 600 MG TAB PO SCH ×2 (09:57→22:24)
[2023-04-14] MEDS: FLUDROCORTISONE ACETATE 0.1 MG TAB PO SCH (09:58)
[2023-04-14] MEDS: CLOPIDOGREL BISULFATE 75 MG TAB PO SCH (09:58)
[2023-04-14] MEDS: METOPROLOL SUCCINATE XL 50 MG TAB PO SCH (09:58)
[2023-04-14] MEDS: ASPirin-EC 81 mg tab PO SCH (09:58)
[2023-04-14] MEDS: ENOXAPARIN SOD 40 MG/0.4 ML SYRINGE SC SCH (10:04)
[2023-04-14] MEDS ORDERED: ERTAPENEM SOD INJ 1 GM in SODIUM CHL 0.9% 50 ML IV ONE (13:15)
[2023-04-14] MEDS: MEPERIDINE HCL (25 MG/ML) 1ML VIAL IM PRN (16:58)
[2023-04-14] MEDS: DAKINS QUARTER STR 0.125% (NaHypochlorite) 473 ML TOPICAL SOL TOP SCH (22:00)
[2023-04-14] MEDS: SENNA 8.6 MG TAB PO SCH (22:24)
[2023-04-14] MEDS: ATORVASTATIN 20 MG TAB PO SCH (22:24)
[2023-04-14] MEDS: CILOSTAZOL 100 MG TAB PO SCH (22:24)
[2023-04-14] MEDS: MORPHINE SULF 15mg ER tab PO SCH (22:25)
[2023-04-14] MEDS: INSULIN LANTUS (GLARGINE) 1 /0.01ml (100units/ml) SC SCH (22:39)
[2023-04-15] VITALS (7 sets, daily range): BP systolic 118–143; BP diastolic 58–70; PULSE 57–68; RESP 16–18; TEMP 97.5–98.7; O2SAT 93–97
[2023-04-15] MEDS: MEPERIDINE HCL (25 MG/ML) 1ML VIAL IM PRN ×4 (00:20→18:47)
[2023-04-15] MEDS: SODIUM CHLOR 0.9% PF (SALINE LOCK) 10ML VIAL/SYR IV SCH ×3 (06:09→22:34)
[2023-04-15] MEDS: InsuLIN REG 1unit/0.01ml Soln (100units/ml) SC SCH ×4 (06:32→22:00)
[2023-04-15] MEDS: ACCU-CHEK COMFORT CURVE STRIP VI SCH ×4 (06:32→23:09)
[2023-04-15 06:39] LABS: Basophils # (auto) 0.1 10 ^3/uL (0-0.2); Chloride 111 mmol/L (98-107); Eosinophils # (auto) 0.5 10 ^3/uL (0-0.8); Eosinophils % (auto) 7.4 % (0.0-7.0); Hematocrit 32.7 % (41.0-53.0); Hemoglobin 10.8 g/dL (13.5-17.5); Lymphocytes # (auto) 1.7 10 ^3/uL (0.4-5.4); Lymphocytes % (auto) 26.4 % (10.0-50.0); Mean Corpuscular Hemoglobin 29.9 pg (28.0-32.0); Mean Corpuscular Volume 90.8 fL (80.0-100.0); Monocytes # (auto) 0.7 10 ^3/uL (0-1.3); Monocytes % (auto) 11.2 % (0.0-12.0); Neutrophils # (auto) 3.4 10 ^3/uL (1.6-8.6); Potassium 3.5 mmol/L (3.5-5.1); Red Blood Cells 3.61 10^6/uL (4.5-5.90); Red Cell Distribution Width 13.2 % (11.8-14.3); Sodium 141 mmol/L (136-145); White Blood Cell 6.3 10^3/uL (4.4-10.8)
[2023-04-15 06:40] LABS: Anion Gap 5 (5-15); Carbon Dioxide 25 mmol/L (20-30)
[2023-04-15 06:41] LABS: Calcium 8.2 mg/dL (8.5-10.1)
[2023-04-15 06:45] LABS: BUN/Creatinine Ratio 14.7 (10.0-20.0); Blood Urea Nitrogen 20 mg/dL (9-23); Glucose 63 mg/dL (74-106); Triglycerides 110 mg/dL (< 150)
[2023-04-15 06:46] LABS: LDL Cholesterol 40 mg/dL (< 100)
[2023-04-15 06:47] LABS: Cholesterol 76 mg/dL (< 200); HDL Cholesterol 18 mg/dL (40-59)
[2023-04-15] MEDS: VANCOMYCIN 1GM/200ML 200 ML IV SCH ×2 (08:33→17:40)
[2023-04-15] MEDS: FLUDROCORTISONE ACETATE 0.1 MG TAB PO SCH (10:00)
[2023-04-15] MEDS: CILOSTAZOL 100 MG TAB PO SCH ×2 (10:00→22:35)
[2023-04-15] MEDS ORDERED: DAPAGLIFLOZIN 5 MG TAB PO SCH (10:00)
[2023-04-15] MEDS: METOPROLOL SUCCINATE XL 50 MG TAB PO SCH (10:00)
[2023-04-15] MEDS: DAKINS QUARTER STR 0.125% (NaHypochlorite) 473 ML TOPICAL SOL TOP SCH ×2 (10:00→22:37)
[2023-04-15] MEDS: MORPHINE SULF 15mg ER tab PO SCH ×2 (10:01→22:34)
[2023-04-15] MEDS: CLOPIDOGREL BISULFATE 75 MG TAB PO SCH (10:01)
[2023-04-15] MEDS: GEMFIBROZIL 600 MG TAB PO SCH ×2 (10:01→22:34)
[2023-04-15] MEDS: ASPirin-EC 81 mg tab PO SCH (10:01)
[2023-04-15] MEDS: ENOXAPARIN SOD 40 MG/0.4 ML SYRINGE SC SCH (10:01)
[2023-04-15] MEDS: ERTAPENEM SOD INJ 1 GM in SODIUM CHL 0.9% 50 ML IV SCH (10:05)
[2023-04-15] MEDS: DAPAGLIFLOZIN 10 MG PO SCH (14:45)
[2023-04-15] MEDS: MUPIROCIN 2% OINT 15gm or 22gm FOR MRSA NARES TOP SCH (22:00)
[2023-04-15] MEDS: ATORVASTATIN 20 MG TAB PO SCH (22:34)
[2023-04-15] MEDS: SENNA 8.6 MG TAB PO SCH (22:35)
[2023-04-15] MEDS: INSULIN LANTUS (GLARGINE) 1 /0.01ml (100units/ml) SC SCH (22:59)
[2023-04-16] VITALS (7 sets, daily range): BP systolic 111–131; BP diastolic 58–73; PULSE 59–68; RESP 16–20; TEMP 37; O2SAT 92–95
[2023-04-16] MEDS: MEPERIDINE HCL (25 MG/ML) 1ML VIAL IM PRN ×3 (00:57→16:14)
[2023-04-16 03:11] LABS: Chloride 112 mmol/L (98-107); Potassium 3.8 mmol/L (3.5-5.1); Sodium 140 mmol/L (136-145)
[2023-04-16 03:12] LABS: Anion Gap 4 (5-15); Calcium 7.9 mg/dL (8.7-10.4); Carbon Dioxide 24 mmol/L (20-30)
[2023-04-16 03:17] LABS: Blood Urea Nitrogen 18 mg/dL (9-23); Glucose 55 mg/dL (74-106)
[2023-04-16] MEDS: VANCOMYCIN 1GM/200ML 200 ML IV SCH ×2 (04:23→14:08)
[2023-04-16] MEDS: diphenhdrAMINE HCL 25 MG CAP PO PRN (04:55)
[2023-04-16] MEDS: ACCU-CHEK COMFORT CURVE STRIP VI SCH ×3 (06:51→16:20)
[2023-04-16] MEDS: SODIUM CHLOR 0.9% PF (SALINE LOCK) 10ML VIAL/SYR IV SCH ×2 (06:52→14:09)
[2023-04-16] MEDS: InsuLIN REG 1unit/0.01ml Soln (100units/ml) SC SCH ×3 (06:52→16:20)
[2023-04-16] MEDS: ERTAPENEM SOD INJ 1 GM in SODIUM CHL 0.9% 50 ML IV SCH (09:56)
[2023-04-16] MEDS: CILOSTAZOL 100 MG TAB PO SCH (09:57)
[2023-04-16] MEDS: FLUDROCORTISONE ACETATE 0.1 MG TAB PO SCH (09:57)
[2023-04-16] MEDS: CLOPIDOGREL BISULFATE 75 MG TAB PO SCH (09:57)
[2023-04-16] MEDS: MORPHINE SULF 15mg ER tab PO SCH (09:57)
[2023-04-16] MEDS: GEMFIBROZIL 600 MG TAB PO SCH (09:57)
[2023-04-16] MEDS: METOPROLOL SUCCINATE XL 50 MG TAB PO SCH (09:58)
[2023-04-16] MEDS: ENOXAPARIN SOD 40 MG/0.4 ML SYRINGE SC SCH (09:58)
[2023-04-16] MEDS: ASPirin-EC 81 mg tab PO SCH (09:58)
[2023-04-16] MEDS: DAPAGLIFLOZIN 10 MG PO SCH (10:00)
[2023-04-16] MEDS: DAKINS QUARTER STR 0.125% (NaHypochlorite) 473 ML TOPICAL SOL TOP SCH (10:09)
[2023-04-16] MEDS: MUPIROCIN 2% OINT 15gm or 22gm FOR MRSA NARES TOP SCH (10:12)
[2023-04-16] MEDS ORDERED: CLIN150C18 PO (14:44)
[2023-04-16] MEDS ORDERED: CLINDAMYCIN HCL 150 MG CAP PO SCH (22:00)
== END 2023-04-16 18:45 | disposition home health service (06) | DRG 383 ==
LOC: ER 12:19 → OVERFLOW 17:45 → WEST WING 04-13 10:19
PROVIDERS: ADMIT Internal Medicine; ATTEND Hospitalist
DX: L03.116 Cellulitis of left lower limb (principal); N17.9 Acute kidney failure, unspecified; E11.621 Type 2 diabetes mellitus with foot ulcer; I95.9 Hypotension, unspecified; N39.0 Urinary tract infection, site not specified; L97.519 Non-pressure chronic ulcer of other part of right foot with unspecified severity; K80.20 Calculus of gallbladder without cholecystitis without obstruction; B96.20 Unspecified Escherichia coli [E. coli] as the cause of diseases classified elsewhere; E66.9 Obesity, unspecified; L03.115 Cellulitis of right lower limb; L97.529 Non-pressure chronic ulcer of other part of left foot with unspecified severity; F17.210 Nicotine dependence, cigarettes, uncomplicated; Z16.12 Extended spectrum beta lactamase (ESBL) resistance; N36.8 Other specified disorders of urethra; G89.29 Other chronic pain; Z79.1 Long term (current) use of non-steroidal anti-inflammatories (NSAID); Z79.899 Other long term (current) drug therapy; Z79.2 Long term (current) use of antibiotics; Z79.82 Long term (current) use of aspirin; Z82.49 Family history of ischemic heart disease and other diseases of the circulatory system; Z83.3 Family history of diabetes mellitus; Z82.3 Family history of stroke; Z87.440 Personal history of urinary (tract) infections; Z68.34 Body mass index [BMI] 34.0-34.9, adult
CPT/HCPCS: 36415; 73630; 73718; 73721; 80048; 80053; 80061; 80202; 80307; 81001; 82962; 83036; 83605; 83690; 83880; 84484; 85025; 87040; 87077; 87081; 87086; 87088; 87186; 87205; 93925; G0378; J1335; J1815; J2405; J2543

== ENCOUNTER 2023-08-04 15:36 | Inpatient (IN) | payer MEDICAID ==
[~2023-08-04] VITALS: Ht 182.9 cm; Wt 104.9 kg
[~2023-08-04 15:36] MED LIST changes: -ACET500T58 PO; -CEPH250C PO; +CLIN150C18 PO
[2023-08-04 16:05] VITALS: PULSE 105; RESP 20; O2SAT 91
[2023-08-04] MEDS: HYDROmorphone HCL 2 MG/ML VL/or syr IV ONE (17:08)
[2023-08-04] MEDS: ONDANSETRON HCL 4 MG/2 ML VIAL IV ONE (17:08)
[2023-08-04 19:30] VITALS: PULSE 102; RESP 14; O2SAT 94
[2023-08-05] MEDS: HYDROmorphone HCL 2 MG/ML VL/or syr IV ONE (00:26)
[2023-08-05 00:35] LABS: Basophils # (auto) 0.1 10 ^3/uL (0-0.2); Eosinophils # (auto) 0.2 10 ^3/uL (0-0.8); Hematocrit 25.5 % (41.0-53.0); Hemoglobin 8.3 g/dL (13.5-17.5); Lymphocytes % (auto) 13.6 % (10.0-50.0); Mean Corpuscular Hgb Conc. 32.5 g/dL (32.0-36.0); Monocytes # (auto) 0.6 10 ^3/uL (0-1.3); White Blood Cell 8.5 10^3/uL (4.4-10.8)
[2023-08-05 00:37] LABS: Basophils % (auto) 1.5 % (0.0-2.0); Lymphocytes # (auto) 1.1 10 ^3/uL (0.4-5.4); Mean Corpuscular Volume 86.2 fL (80.0-100.0); Monocytes % (auto) 7.2 % (0.0-12.0); Neutrophils # (auto) 6.4 10 ^3/uL (1.6-8.6); Neutrophils % (auto) 75.7 % (37.0-80.0); Red Blood Cells 2.96 10^6/uL (4.5-5.90)
[2023-08-05 00:47] LABS: Chloride 108 mmol/L (98-107); Potassium 5.2 mmol/L (3.5-5.1); Sodium 140 mmol/L (136-145)
[2023-08-05 00:48] LABS: Anion Gap 3 (5-15); Calcium 9.1 mg/dL (8.7-10.4); Carbon Dioxide 29 mmol/L (20-30)
[2023-08-05 00:53] LABS: BUN/Creatinine Ratio 13.4 (10.0-20.0); Blood Urea Nitrogen 15 mg/dL (9-23); Glucose 112 mg/dL (74-106)
[2023-08-05] MEDS ORDERED: ACETAMINOPHEN 325 MG TAB PO PRN (06:15)
[2023-08-05] MEDS ORDERED: DEXTROSE (50%) 50ML SYRG IV PRN (06:15)
[2023-08-05] MEDS ORDERED: NITROGLYCERIN 0.4 MG SL TAB SL PRN (06:15)
[2023-08-05] MEDS ORDERED: MORPHINE SULFATE INJ 2 MG/ml SYRG IV PRN ×4 (06:15→06:30)
[2023-08-05 07:56] VITALS: O2SAT 94
[2023-08-05] MEDS: HYDROcodone-ACET 5/325MG TAB PO PRN (08:28)
[2023-08-05 08:57] LABS: Urine Bacteria None Seen /hpf (None Seen)
[2023-08-05 09:14] LABS: Urine Blood 1+ /uL (Negative); Urine Budding Yeast OCCASIONAL /hpf (None Seen); Urine Clarity Clear (Clear); Urine Color Light-Yellow (Yellow); Urine Mucus FEW (None Seen); Urine Protein, UAD 3+ (Negative); Urine Specific Gravity 1.011 (1.001-1.035); Urine Urobilinogen Normal (Negative); Urine WBC 3 /hpf (0 - 3); Urine pH 7.5 (5.0-9.0)
[2023-08-05] MEDS: ASPirin 81 mg TAB PO SCH (10:00)
[2023-08-05] MEDS: CLOPIDOGREL BISULFATE 75 MG TAB PO SCH (10:00)
[2023-08-05] MEDS: GEMFIBROZIL 600 MG TAB PO SCH (10:00)
[2023-08-05] MEDS: METOPROLOL SUCCINATE XL 50 MG TAB PO SCH (10:01)
[2023-08-05] MEDS: ACCU-CHEK COMFORT CURVE STRIP VI SCH ×2 (11:53→17:11)
[2023-08-05] MEDS: InsuLIN REG 1unit/0.01ml Soln (100units/ml) SC SCH ×2 (11:53→17:00)
[2023-08-05 12:35] VITALS: BP 162/92; PULSE 91; RESP 17; TEMP 98.2; O2SAT 96
[2023-08-05 12:45] VITALS: O2SAT 94
[2023-08-05] MEDS ORDERED: VANCOMYCIN PER PHARMACY 0 MG IV SCH (13:30)
[2023-08-05] MEDS ORDERED: CARI-277 PO (13:36)
[2023-08-05] MEDS ORDERED: INSLISPI SC (13:36)
[2023-08-05] MEDS ORDERED: PREG200C19 PO (13:36)
[2023-08-05] MEDS ORDERED: MYCO250C PO (13:44)
[2023-08-05] MEDS ORDERED: FINE20TA PO (13:44)
[2023-08-05] MEDS: HYDROmorphone HCL 2 MG/ML VL/or syr IV PRN (13:58)
[2023-08-05] MEDS: cefTRIAXone 1GM/50ML D5W 50 ML IV ONE (13:59)
[2023-08-05 15:24] LABS: Alanine Aminotransferase 21 U/L (7-40); Albumin 2.8 g/dL (3.2-4.8); Alkaline Phosphatase 135 U/L (46-116); Anion Gap 6 (5-15); Aspartate Aminotransferase 45 U/L (13-40); BUN/Creatinine Ratio 14.7 (10.0-20.0); Bilirubin, Total 0.2 mg/dL (0.2-1.0); Blood Urea Nitrogen 15 mg/dL (9-23); Calcium 8.6 mg/dL (8.7-10.4); Carbon Dioxide 24 mmol/L (20-30); Chloride 109 mmol/L (98-107); Glucose 107 mg/dL (74-106); Magnesium 1.9 mg/dL (1.6-2.6); Sodium 139 mmol/L (136-145); Total Protein 6.1 g/dL (5.7-8.2)
[2023-08-05 15:37] LABS: Potassium 5.7 mmol/L (3.5-5.1)
[2023-08-05 17:04] VITALS: BP 164/94; PULSE 88; RESP 17; TEMP 98; O2SAT 96
[2023-08-05] MEDS: SODIUM ZIRCONIUM CYCL 10 GM PAK PO ONE (17:11)
[2023-08-05] MEDS: VANCOMYCIN 1GM/200ML 200 ML IV ONE (17:12)
[2023-08-05] MEDS: FUROSEMIDE 40 MG TAB PO ONE (17:12)
[2023-08-05 19:58] VITALS: PULSE 81; RESP 16; O2SAT 96
[2023-08-05 21:00] VITALS: BP 163/80; PULSE 87; RESP 19; TEMP 98.7; O2SAT 96
[2023-08-05] MEDS: ATORVASTATIN 20 MG TAB PO SCH (21:49)
[2023-08-06] VITALS (9 sets, daily range): BP systolic 149–185; BP diastolic 79–97; PULSE 75–87; RESP 16–18; TEMP 97.8–98.5; O2SAT 93–98
[2023-08-06] MEDS: VANCOMYCIN 1GM/200ML 200 ML IV SCH (01:00)
[2023-08-06 06:39] LABS: Basophils # (auto) 0.1 10 ^3/uL (0-0.2); Eosinophils # (auto) 0.2 10 ^3/uL (0-0.8); Eosinophils % (auto) 3.1 % (0.0-7.0); Hemoglobin 7.7 g/dL (13.5-17.5); Monocytes # (auto) 0.8 10 ^3/uL (0-1.3); Monocytes % (auto) 10.5 % (0.0-12.0); Nucleated Red Blood Cells % 0.1 %; White Blood Cell 7.6 10^3/uL (4.4-10.8)
[2023-08-06 06:41] LABS: Basophils % (auto) 1.5 % (0.0-2.0); Hematocrit 24.1 % (41.0-53.0); Lymphocytes # (auto) 1.4 10 ^3/uL (0.4-5.4); Lymphocytes % (auto) 18.8 % (10.0-50.0); Mean Corpuscular Hemoglobin 27.7 pg (28.0-32.0); Mean Corpuscular Hgb Conc. 32.1 g/dL (32.0-36.0); Mean Corpuscular Volume 86.3 fL (80.0-100.0); Neutrophils % (auto) 66.1 % (37.0-80.0)
[2023-08-06 06:43] LABS: Alanine Aminotransferase 17 U/L (7-40); Albumin 2.9 g/dL (3.2-4.8); Alkaline Phosphatase 119 U/L (46-116); Anion Gap 5 (5-15); Aspartate Aminotransferase 34 U/L (13-40); BUN/Creatinine Ratio 11.7 (10.0-20.0); Bilirubin, Total 0.2 mg/dL (0.2-1.0); Blood Urea Nitrogen 12 mg/dL (9-23); Calcium 8.9 mg/dL (8.5-10.1); Carbon Dioxide 28 mmol/L (20-30); Chloride 107 mmol/L (98-107); Cholesterol 97 mg/dL (< 200); Glucose 86 mg/dL (74-106); HDL Cholesterol 26 mg/dL (40-59); LDL Cholesterol 46 mg/dL (< 100); Potassium 4.3 mmol/L (3.5-5.1); Sodium 140 mmol/L (136-145); Triglycerides 152 mg/dL (< 150)
[2023-08-06 06:44] LABS: Total Protein 6.3 g/dL (5.7-8.2)
[2023-08-06] MEDS: FUROSEMIDE 40 MG TAB PO SCH (08:52)
[2023-08-06] MEDS: cefTRIAXone 1GM/50ML D5W 50 ML IV SCH (08:54)
[2023-08-06] MEDS: LOSARTAN POTASSIUM 25 MG TAB PO ONE (13:03)
[2023-08-06] MEDS: hydrALAZINE HCL 20 MG/ML VL IV PRN (17:03)
[2023-08-06] MEDS: DOXYCYCLINE 100 MG TAB/CAP PO SCH (22:15)
[2023-08-07] VITALS (9 sets, daily range): BP systolic 154–179; BP diastolic 80–95; PULSE 75–85; RESP 16–18; TEMP 97.5–98.2; O2SAT 96–98
[2023-08-07] MEDS: MIDODRINE HCL 10 MG TAB PO SCH (06:00)
[2023-08-07 08:46] LABS: Hepatitis B Surface Antigen Negative (Negative)
[2023-08-07 09:07] LABS: Hepatitis C Antibody Negative (Negative)
[2023-08-07] MEDS: LOSARTAN POTASSIUM 25 MG TAB PO SCH (09:54)
[2023-08-08] VITALS (13 sets, daily range): BP systolic 135–175; BP diastolic 61–88; PULSE 75–83; RESP 16–19; TEMP 97.6–99; O2SAT 96–99
[2023-08-08 07:36] LABS: Basophils # (auto) 0.1 10 ^3/uL (0-0.2); Basophils % (auto) 0.8 % (0.0-2.0); Eosinophils # (auto) 0.1 10 ^3/uL (0-0.8); Eosinophils % (auto) 1.4 % (0.0-7.0); Hematocrit 22.1 % (41.0-53.0); Lymphocytes # (auto) 1.2 10 ^3/uL (0.4-5.4); Lymphocytes % (auto) 11.8 % (10.0-50.0); Mean Corpuscular Hemoglobin 28.1 pg (28.0-32.0); Mean Corpuscular Hgb Conc. 31.8 g/dL (32.0-36.0); Mean Corpuscular Volume 88.2 fL (80.0-100.0); Monocytes # (auto) 0.9 10 ^3/uL (0-1.3); Neutrophils # (auto) 7.8 10 ^3/uL (1.6-8.6); Nucleated Red Blood Cells % 0.1 %; Red Cell Distribution Width 15.9 % (11.8-14.3); White Blood Cell 10.1 10^3/uL (4.4-10.8)
[2023-08-08 07:43] LABS: Alanine Aminotransferase 16 U/L (7-40); Albumin 2.6 g/dL (3.2-4.8); Alkaline Phosphatase 98 U/L (46-116); Anion Gap 8 (5-15); Aspartate Aminotransferase 23 U/L (13-40); BUN/Creatinine Ratio 20.4 (10.0-20.0); Bilirubin, Total < 0.2 mg/dL (0.2-1.0); Blood Urea Nitrogen 23 mg/dL (9-23); Calcium 8.2 mg/dL (8.7-10.4); Carbon Dioxide 23 mmol/L (20-30); Chloride 106 mmol/L (98-107); Glucose 113 mg/dL (74-106); Magnesium 1.6 mg/dL (1.6-2.6); Potassium 3.7 mmol/L (3.5-5.1); Sodium 137 mmol/L (136-145); Total Protein 5.5 g/dL (5.7-8.2)
[2023-08-08 15:16] LABS: Free T3 1.88 pg/mL (2.3-4.2)
[2023-08-08 15:17] LABS: Free T4 (Free Thyroxine) 0.95 ng/dL (0.89-1.76)
[2023-08-08] MEDS: GABAPENTIN 100 MG CAP PO ONE (16:35)
[2023-08-08 17:10] LABS: Hematocrit 21.5 % (41.0-53.0)
[2023-08-08 17:17] LABS: Hemoglobin 6.9 g/dL (13.5-17.5)
[2023-08-08] MEDS: GABAPENTIN 100 MG CAP PO SCH (21:59)
[2023-08-08] MEDS: DAKINS HALF STR 0.25% (NaHypochlorite) 473 ML TOPICAL SOL TOP SCH (22:08)
[2023-08-09] VITALS (8 sets, daily range): BP systolic 154–173; BP diastolic 77–89; PULSE 69–89; RESP 16–19; TEMP 97.7–98.7; O2SAT 90–97
[2023-08-09 06:53] LABS: Basophils # (auto) 0.1 10 ^3/uL (0-0.2); Basophils % (auto) 0.8 % (0.0-2.0); Eosinophils # (auto) 0.2 10 ^3/uL (0-0.8); Eosinophils % (auto) 2.4 % (0.0-7.0); Hematocrit 21.6 % (41.0-53.0); Hemoglobin 7.1 g/dL (13.5-17.5); Lymphocytes # (auto) 1.5 10 ^3/uL (0.4-5.4); Lymphocytes % (auto) 14.6 % (10.0-50.0); Mean Corpuscular Volume 84.9 fL (80.0-100.0); Monocytes % (auto) 9.9 % (0.0-12.0); Neutrophils # (auto) 7.2 10 ^3/uL (1.6-8.6); Neutrophils % (auto) 72.3 % (37.0-80.0); Red Blood Cells 2.55 10^6/uL (4.5-5.90); Red Cell Distribution Width 16.9 % (11.8-14.3)
[2023-08-09] MEDS ORDERED: LOSARTAN POTASSIUM 50 MG TAB PO ONE (09:30)
[2023-08-09] MEDS: HYDROmorphone HCL 2 MG/ML VL/or syr IV PRN (11:29)
[2023-08-09] MEDS: LEVOTHYROXINE SODIUM 25 MCG TAB PO ONE (11:29)
[2023-08-09] MEDS: LOSARTAN POTASSIUM 50 MG TAB PO SCH (11:29)
[2023-08-10] VITALS (9 sets, daily range): BP systolic 134–166; BP diastolic 75–83; PULSE 18–89; RESP 16–18; TEMP 97.9–98.2; O2SAT 95–99
[2023-08-10] MEDS: LEVOTHYROXINE SODIUM 25 MCG TAB PO SCH (06:19)
[2023-08-10] MEDS: VANCOMYCIN 1GM/200ML 200 ML IV SCH (12:27)
[2023-08-10] MEDS: HYDROmorphone HCL 2 MG/ML VL/or syr IV PRN (16:02)
[2023-08-10] MEDS: GABAPENTIN 100 MG CAP PO SCH (22:04)
[2023-08-10] MEDS: LACTULOSE 20Gm/30ML SOLN PO SCH (22:04)
[2023-08-11] VITALS (8 sets, daily range): BP systolic 120–145; BP diastolic 59–80; PULSE 69–87; RESP 16–78; TEMP 97.5–98.7; O2SAT 98–100
[2023-08-11] MEDS: ONDANSETRON HCL 4 MG/2 ML VIAL IV PRN (01:18)
[2023-08-12] VITALS (13 sets, daily range): BP systolic 140–165; BP diastolic 68–84; PULSE 64–93; RESP 16–20; TEMP 97.5–98.7; O2SAT 95–100
[2023-08-12] MEDS: DOCUSATE SOD 100 MG CAP PO ONE (11:45)
[2023-08-12] MEDS: FERROUS SULFATE 325mg EC TAB PO ONE (11:45)
[2023-08-12 12:44] LABS: Eosinophils # (auto) 0.3 10 ^3/uL (0-0.8); Lymphocytes # (auto) 1.4 10 ^3/uL (0.4-5.4); Monocytes # (auto) 0.7 10 ^3/uL (0-1.3); White Blood Cell 9.2 10^3/uL (4.4-10.8)
[2023-08-12 12:46] LABS: Basophils # (auto) 0.2 10 ^3/uL (0-0.2); Basophils % (auto) 1.7 % (0.0-2.0); Eosinophils % (auto) 3.5 % (0.0-7.0); Hematocrit 16.5 % (41.0-53.0); Mean Corpuscular Hemoglobin 27.7 pg (28.0-32.0); Mean Corpuscular Hgb Conc. 31.8 g/dL (32.0-36.0); Mean Corpuscular Volume 86.8 fL (80.0-100.0); Monocytes % (auto) 7.2 % (0.0-12.0); Neutrophils # (auto) 6.6 10 ^3/uL (1.6-8.6); Neutrophils % (auto) 72.6 % (37.0-80.0); Red Blood Cells 1.91 10^6/uL (4.5-5.90); Red Cell Distribution Width 16.5 % (11.8-14.3)
[2023-08-12 12:53] LABS: Chloride 104 mmol/L (98-107); Potassium 3.5 mmol/L (3.5-5.1); Sodium 136 mmol/L (136-145)
[2023-08-12 12:54] LABS: Anion Gap 5 (5-15); Carbon Dioxide 27 mmol/L (20-30)
[2023-08-12 12:55] LABS: Calcium 8.4 mg/dL (8.5-10.1)
[2023-08-12 12:57] LABS: Hemoglobin 5.3 g/dL (13.5-17.5)
[2023-08-12 12:59] LABS: BUN/Creatinine Ratio 23.7 (10.0-20.0); Blood Urea Nitrogen 23 mg/dL (9-23); Glucose 148 mg/dL (74-106)
[2023-08-12 13:03] LABS: INR 1.08 (0.9-1.15); Prothrombin Time 11.4 sec (9.3-11.8)
[2023-08-12] MEDS: FERROUS SULFATE 325mg EC TAB PO SCH (18:02)
[2023-08-12] MEDS: diphenhdrAMINE HCL 25 MG CAP PO PRN (18:02)
[2023-08-12] MEDS: DOCUSATE SOD 100 MG CAP PO SCH (21:42)
[2023-08-12 22:25] LABS: Hematocrit 19.2 % (41.0-53.0)
[2023-08-12] MEDS: ZOLPIDEM TARTRATE 5 MG TAB PO PRN (22:25)
[2023-08-12 22:36] LABS: Hemoglobin 6.2 g/dL (13.5-17.5)
[2023-08-13] VITALS (13 sets, daily range): BP systolic 107–187; BP diastolic 51–96; PULSE 72–98; RESP 17–19; TEMP 97.6–99.2; O2SAT 96–100
[2023-08-13] MEDS ORDERED: PROPOFOL 10 MG/ML 20 ML IV ONE (08:12)
[2023-08-13 08:19] LABS: Basophils # (auto) 0.2 10 ^3/uL (0-0.2); Chloride 106 mmol/L (98-107); Eosinophils # (auto) 0.4 10 ^3/uL (0-0.8); Hemoglobin 7.2 g/dL (13.5-17.5); Monocytes # (auto) 0.9 10 ^3/uL (0-1.3); Potassium 3.6 mmol/L (3.5-5.1); Sodium 138 mmol/L (136-145)
[2023-08-13 08:20] LABS: Anion Gap 5 (5-15); Carbon Dioxide 27 mmol/L (20-30)
[2023-08-13 08:21] LABS: Calcium 8.4 mg/dL (8.5-10.1)
[2023-08-13 08:23] LABS: Basophils % (auto) 2.3 % (0.0-2.0); Eosinophils % (auto) 4.2 % (0.0-7.0); Hematocrit 21.8 % (41.0-53.0); Lymphocytes # (auto) 1.8 10 ^3/uL (0.4-5.4); Lymphocytes % (auto) 20.9 % (10.0-50.0); Mean Corpuscular Hemoglobin 29.4 pg (28.0-32.0); Mean Corpuscular Hgb Conc. 33.1 g/dL (32.0-36.0); Monocytes % (auto) 10.2 % (0.0-12.0); Neutrophils # (auto) 5.5 10 ^3/uL (1.6-8.6); Neutrophils % (auto) 62.4 % (37.0-80.0); Red Blood Cells 2.45 10^6/uL (4.5-5.90); Red Cell Distribution Width 16.6 % (11.8-14.3); White Blood Cell 8.7 10^3/uL (4.4-10.8)
[2023-08-13 08:25] LABS: BUN/Creatinine Ratio 18.1 (10.0-20.0); Blood Urea Nitrogen 19 mg/dL (9-23); Glucose 106 mg/dL (74-106)
[2023-08-13] MEDS ORDERED: fentaNYL CITRATE 100 MCG/2 ML VL ONE (09:52)
[2023-08-13] MEDS ORDERED: HYDROmorphone HCL 2 MG/ML VL/or syr IV PRN (11:00)
[2023-08-13] MEDS ORDERED: MEPERIDINE HCL (25 MG/ML) 1ML VIAL IV PRN (11:00)
[2023-08-13] MEDS: LIDOCAINE 1% HCL (LOCAL ANESTH.) INJ 20ML MDV ONE (15:26)
[2023-08-13] MEDS: BUPIVACAINE 0.5% P/F INJ 10 ML VIAL ONE (15:28)
[2023-08-14] VITALS (7 sets, daily range): BP systolic 127–166; BP diastolic 66–87; PULSE 74–99; RESP 16–18; TEMP 98.1–98.9; O2SAT 95–98
[2023-08-14 06:58] LABS: Eosinophils # (auto) 0.4 10 ^3/uL (0-0.8); Monocytes # (auto) 1.2 10 ^3/uL (0-1.3)
[2023-08-14 07:03] LABS: Basophils # (auto) 0.2 10 ^3/uL (0-0.2); Basophils % (auto) 1.9 % (0.0-2.0); Eosinophils % (auto) 4.2 % (0.0-7.0); Hematocrit 21.7 % (41.0-53.0); Hemoglobin 7.2 g/dL (13.5-17.5); Lymphocytes # (auto) 1.5 10 ^3/uL (0.4-5.4); Lymphocytes % (auto) 14.7 % (10.0-50.0); Mean Corpuscular Hemoglobin 28.6 pg (28.0-32.0); Mean Corpuscular Volume 86.9 fL (80.0-100.0); Neutrophils # (auto) 6.8 10 ^3/uL (1.6-8.6); Neutrophils % (auto) 67.2 % (37.0-80.0); Nucleated Red Blood Cells % 0.1 %; Red Cell Distribution Width 16.7 % (11.8-14.3); White Blood Cell 10.1 10^3/uL (4.4-10.8)
[2023-08-14 07:09] LABS: Anion Gap 3 (5-15); Carbon Dioxide 30 mmol/L (20-30); Chloride 104 mmol/L (98-107); Potassium 3.4 mmol/L (3.5-5.1); Sodium 137 mmol/L (136-145)
[2023-08-14 07:10] LABS: Calcium 8.4 mg/dL (8.5-10.1)
[2023-08-14 07:15] LABS: Blood Urea Nitrogen 18 mg/dL (9-23); Glucose 103 mg/dL (74-106)
[2023-08-14] MEDS: ceFAZolin 2 GM/D5W50ml 50 ML IV ONE (07:33)
[2023-08-14] MEDS: LIDOCAINE 1% (LOCAL ANESTH.) PF 5ml SDV ONE (07:33)
[2023-08-14] MEDS: ONDANSETRON HCL 4 MG/2 ML VIAL IV ONE (07:34)
[2023-08-14] MEDS: POTASSIUM CHL 20 Meq TABLET PO ONE (10:46)
[2023-08-14] MEDS: HYDROmorphone HCL 2 MG/ML VL/or syr IV PRN (12:17)
[2023-08-14] MEDS: VANCOMYCIN 1GM/200ML 200 ML IV SCH (22:05)
[2023-08-15] VITALS (8 sets, daily range): BP systolic 114–179; BP diastolic 71–90; PULSE 73–100; RESP 16–18; TEMP 98–99; O2SAT 97–100
[2023-08-15 06:14] LABS: Potassium 3.7 mmol/L (3.5-5.1)
[2023-08-15 06:16] LABS: Calcium 8.1 mg/dL (8.7-10.4)
[2023-08-15 06:20] LABS: BUN/Creatinine Ratio 15.5 (10.0-20.0)
[2023-08-15 06:22] LABS: Albumin 2.6 g/dL (3.2-4.8)
[2023-08-15 06:23] LABS: Phosphorus 3.2 mg/dL (2.4-5.1)
[2023-08-16] VITALS (7 sets, daily range): BP systolic 111–168; BP diastolic 58–87; PULSE 68–85; RESP 18–20; TEMP 97.8–98.6; O2SAT 97–99
[2023-08-16 06:30] LABS: Hemoglobin 7.2 g/dL (13.5-17.5); Monocytes # (auto) 1.1 10 ^3/uL (0-1.3)
[2023-08-16 06:32] LABS: Basophils # (auto) 0.2 10 ^3/uL (0-0.2); Basophils % (auto) 1.9 % (0.0-2.0); Eosinophils # (auto) 1.3 10 ^3/uL (0-0.8); Lymphocytes # (auto) 2.3 10 ^3/uL (0.4-5.4); Mean Corpuscular Hemoglobin 28.5 pg (28.0-32.0); Mean Corpuscular Hgb Conc. 32.9 g/dL (32.0-36.0); Mean Corpuscular Volume 86.6 fL (80.0-100.0); Monocytes % (auto) 9.9 % (0.0-12.0); Neutrophils % (auto) 55.2 % (37.0-80.0); Nucleated Red Blood Cells % 0.1 %; Red Blood Cells 2.54 10^6/uL (4.5-5.90); Red Cell Distribution Width 16.3 % (11.8-14.3); White Blood Cell 10.8 10^3/uL (4.4-10.8)
[2023-08-16 06:48] LABS: Alanine Aminotransferase 10 U/L (7-40); Albumin 2.8 g/dL (3.2-4.8); Alkaline Phosphatase 92 U/L (46-116); Anion Gap 3 (5-15); Aspartate Aminotransferase 22 U/L (13-40); BUN/Creatinine Ratio 15.8 (10.0-20.0); Blood Urea Nitrogen 15 mg/dL (9-23); Calcium 8.3 mg/dL (8.5-10.1); Carbon Dioxide 30 mmol/L (20-30); Chloride 103 mmol/L (98-107); Glucose 85 mg/dL (74-106); Potassium 3.4 mmol/L (3.5-5.1); Sodium 136 mmol/L (136-145)
[2023-08-16 06:49] LABS: Bilirubin, Total 0.2 mg/dL (0.2-1.0); Total Protein 5.8 g/dL (5.7-8.2)
[2023-08-16] MEDS: VANCOMYCIN 1GM/200ML 200 ML IV SCH (10:26)
[2023-08-17] VITALS (8 sets, daily range): BP systolic 112–155; BP diastolic 54–90; PULSE 67–86; RESP 16–22; TEMP 97.9–98.8; O2SAT 96–100
[2023-08-17 05:38] LABS: Potassium 3.5 mmol/L (3.5-5.1)
[2023-08-17 05:39] LABS: Calcium 8.6 mg/dL (8.7-10.4)
[2023-08-17 05:44] LABS: BUN/Creatinine Ratio 13.7 (10.0-20.0)
[2023-08-17 05:45] LABS: Albumin 2.8 g/dL (3.2-4.8)
[2023-08-17 05:46] LABS: Phosphorus 4.2 mg/dL (2.4-5.1)
[2023-08-17] MEDS: VANCOMYCIN 1GM/200ML 200 ML IV SCH (21:37)
[2023-08-18] VITALS (8 sets, daily range): BP systolic 111–155; BP diastolic 65–83; PULSE 64–81; RESP 15–18; TEMP 97.8–98.8; O2SAT 96–100
[2023-08-18 10:45] LABS: Folate (Folic Acid) 6.59 ng/mL (>5.38)
[2023-08-18 11:29] LABS: Basophils # (auto) 0.1 10 ^3/uL (0-0.2); Basophils % (auto) 1.2 % (0.0-2.0); Eosinophils # (auto) 0.9 10 ^3/uL (0-0.8); Eosinophils % (auto) 9.9 % (0.0-7.0); Hematocrit 22.5 % (41.0-53.0); Hemoglobin 7.4 g/dL (13.5-17.5); Lymphocytes # (auto) 1.6 10 ^3/uL (0.4-5.4); Lymphocytes % (auto) 16.9 % (10.0-50.0); Mean Corpuscular Hemoglobin 28.5 pg (28.0-32.0); Mean Corpuscular Hgb Conc. 32.7 g/dL (32.0-36.0); Mean Corpuscular Volume 86.9 fL (80.0-100.0); Monocytes # (auto) 0.9 10 ^3/uL (0-1.3); Monocytes % (auto) 9.2 % (0.0-12.0); Neutrophils # (auto) 6.1 10 ^3/uL (1.6-8.6); Neutrophils % (auto) 62.8 % (37.0-80.0); Red Blood Cells 2.59 10^6/uL (4.5-5.90); Red Cell Distribution Width 16.3 % (11.8-14.3); White Blood Cell 9.6 10^3/uL (4.4-10.8)
[2023-08-18 11:58] LABS: Alanine Aminotransferase 12 U/L (7-40); Albumin 2.9 g/dL (3.2-4.8); Alkaline Phosphatase 97 U/L (46-116); Anion Gap 3 (5-15); Aspartate Aminotransferase 20 U/L (13-40); BUN/Creatinine Ratio 17.9 (10.0-20.0); Bilirubin, Total < 0.2 mg/dL (0.2-1.0); Blood Urea Nitrogen 19 mg/dL (9-23); Calcium 8.7 mg/dL (8.5-10.1); Carbon Dioxide 31 mmol/L (20-30); Chloride 104 mmol/L (98-107); Glucose 108 mg/dL (74-106); Potassium 3.3 mmol/L (3.5-5.1); Sodium 138 mmol/L (136-145)
[2023-08-18 11:59] LABS: Total Protein 6.1 g/dL (5.7-8.2)
[2023-08-18] MEDS: PANTOPRAZOLE 40 MG/10 ML VIAL INJ IV ONE (12:36)
[2023-08-18] MEDS: PANTOPRAZOLE 40 MG/10 ML VIAL INJ IV SCH (21:33)
[2023-08-19] VITALS (11 sets, daily range): BP systolic 120–164; BP diastolic 68–87; PULSE 68–85; RESP 15–22; TEMP 97.8–98.9; O2SAT 92–99
[2023-08-19 06:32] LABS: Basophils # (auto) 0.1 10 ^3/uL (0-0.2); Basophils % (auto) 1.2 % (0.0-2.0); Eosinophils # (auto) 1.1 10 ^3/uL (0-0.8); Eosinophils % (auto) 9.7 % (0.0-7.0); Hematocrit 20.9 % (41.0-53.0); Lymphocytes % (auto) 17.9 % (10.0-50.0); Mean Corpuscular Hemoglobin 28.1 pg (28.0-32.0); Mean Corpuscular Hgb Conc. 32.2 g/dL (32.0-36.0); Mean Corpuscular Volume 87.3 fL (80.0-100.0); Monocytes % (auto) 8.8 % (0.0-12.0); Neutrophils % (auto) 62.4 % (37.0-80.0); Red Blood Cells 2.39 10^6/uL (4.5-5.90); Red Cell Distribution Width 16.3 % (11.8-14.3); White Blood Cell 11.1 10^3/uL (4.4-10.8)
[2023-08-19 06:34] LABS: Hemoglobin 6.7 g/dL (13.5-17.5)
[2023-08-19] MEDS: VANCOMYCIN 1GM/200ML 200 ML IV ONE (07:43)
[2023-08-19] MEDS: VANCOMYCIN 1GM/200ML 200 ML IV SCH (21:05)
[2023-08-20] VITALS (9 sets, daily range): BP systolic 129–187; BP diastolic 73–94; PULSE 70–93; RESP 14–22; TEMP 97.7–99.9; O2SAT 92–100
[2023-08-20 06:18] LABS: Basophils # (auto) 0.2 10 ^3/uL (0-0.2); Basophils % (auto) 2.2 % (0.0-2.0); Eosinophils % (auto) 9.1 % (0.0-7.0); Hematocrit 25.3 % (41.0-53.0); Hemoglobin 8.1 g/dL (13.5-17.5); Lymphocytes # (auto) 1.8 10 ^3/uL (0.4-5.4); Mean Corpuscular Hemoglobin 28.7 pg (28.0-32.0); Mean Corpuscular Volume 89.6 fL (80.0-100.0); Monocytes # (auto) 0.9 10 ^3/uL (0-1.3); Monocytes % (auto) 8.3 % (0.0-12.0); Neutrophils # (auto) 6.9 10 ^3/uL (1.6-8.6); Neutrophils % (auto) 63.4 % (37.0-80.0); Nucleated Red Blood Cells % 0.1 %; Red Blood Cells 2.82 10^6/uL (4.5-5.90); White Blood Cell 10.8 10^3/uL (4.4-10.8)
[2023-08-20 06:38] LABS: Calcium 8.4 mg/dL (8.5-10.1); Chloride 103 mmol/L (98-107); Potassium 3.6 mmol/L (3.5-5.1); Sodium 137 mmol/L (136-145)
[2023-08-20 06:39] LABS: Anion Gap 9 (5-15); Carbon Dioxide 25 mmol/L (20-30)
[2023-08-20 06:44] LABS: Blood Urea Nitrogen 19 mg/dL (9-23); Glucose 98 mg/dL (74-106)
[2023-08-20 06:45] LABS: Magnesium 1.8 mg/dL (1.6-2.6)
[2023-08-20] MEDS: HYDROmorphone HCL 2 MG/ML VL/or syr IV PRN (12:16)
[2023-08-20] MEDS ORDERED: LIDOCAINE 2% (LOCAL ANESTH.) PF 5ml SDV ONE (13:08)
[2023-08-20] MEDS ORDERED: PROPOFOL 10 MG/ML 20 ML IV ONE (13:23)
[2023-08-20] MEDS ORDERED: HYDROmorphone HCL 2 MG/ML VL/or syr IV PRN (14:00)
[2023-08-20] MEDS: ZOLPIDEM TARTRATE 5 MG TAB PO PRN (22:25)
[2023-08-21] VITALS (11 sets, daily range): BP systolic 124–165; BP diastolic 64–89; PULSE 69–99; RESP 12–20; TEMP 98.1–98.8; O2SAT 74–100
[2023-08-21] MEDS: VANCOMYCIN 1GM/200ML 200 ML IV SCH (08:06)
[2023-08-21 09:13] LABS: Calcium 8.6 mg/dL (8.5-10.1); Chloride 105 mmol/L (98-107); Potassium 3.3 mmol/L (3.5-5.1); Sodium 138 mmol/L (136-145)
[2023-08-21 09:14] LABS: Anion Gap 3 (5-15); Carbon Dioxide 30 mmol/L (20-30)
[2023-08-21 09:18] LABS: Basophils # (auto) 0.2 10 ^3/uL (0-0.2); Hematocrit 25.3 % (41.0-53.0); Hemoglobin 8.2 g/dL (13.5-17.5); Lymphocytes # (auto) 1.7 10 ^3/uL (0.4-5.4); Neutrophils # (auto) 5.4 10 ^3/uL (1.6-8.6)
[2023-08-21 09:19] LABS: BUN/Creatinine Ratio 19.8 (10.0-20.0); Blood Urea Nitrogen 22 mg/dL (9-23); Glucose 93 mg/dL (74-106)
[2023-08-21 09:21] LABS: Basophils % (auto) 1.7 % (0.0-2.0); Lymphocytes % (auto) 19.4 % (10.0-50.0); Mean Corpuscular Hemoglobin 28.6 pg (28.0-32.0); Mean Corpuscular Hgb Conc. 32.5 g/dL (32.0-36.0); Mean Corpuscular Volume 87.9 fL (80.0-100.0); Monocytes # (auto) 0.7 10 ^3/uL (0-1.3); Monocytes % (auto) 8.2 % (0.0-12.0); Neutrophils % (auto) 59.2 % (37.0-80.0); Nucleated Red Blood Cells % 0.1 %; Red Blood Cells 2.88 10^6/uL (4.5-5.90)
[2023-08-21 09:26] LABS: INR 1.1 (0.9-1.15); Partial Thromboplastin Time 26.9 SEC (24.5-34.5); Prothrombin Time 11.6 sec (9.3-11.8)
[2023-08-21] MEDS: POTASSIUM CHL 20MEQ/100ML 100 ML IV ONE (10:00)
[2023-08-21 13:04] LABS: Platelet Estimate Adequate
[2023-08-21 13:06] LABS: Eosinophils % (auto) 11.5 % (0.0-7.0)
[2023-08-22] VITALS (9 sets, daily range): BP systolic 111–172; BP diastolic 57–89; PULSE 62–79; RESP 16–20; TEMP 97.5–98.5; O2SAT 92–100
[2023-08-22 07:09] LABS: Basophils # (auto) 0.2 10 ^3/uL (0-0.2); Basophils % (auto) 2.2 % (0.0-2.0); Eosinophils # (auto) 1.3 10 ^3/uL (0-0.8); Hematocrit 28.1 % (41.0-53.0); Hemoglobin 9.3 g/dL (13.5-17.5); Lymphocytes % (auto) 18.5 % (10.0-50.0); Mean Corpuscular Hemoglobin 29.1 pg (28.0-32.0); Mean Corpuscular Hgb Conc. 33.1 g/dL (32.0-36.0); Mean Corpuscular Volume 88.1 fL (80.0-100.0); Monocytes % (auto) 9.1 % (0.0-12.0); Neutrophils # (auto) 6.3 10 ^3/uL (1.6-8.6); Neutrophils % (auto) 58.2 % (37.0-80.0); Red Blood Cells 3.18 10^6/uL (4.5-5.90); Red Cell Distribution Width 15.3 % (11.8-14.3); White Blood Cell 10.8 10^3/uL (4.4-10.8)
[2023-08-22 07:22] LABS: Alanine Aminotransferase 13 U/L (7-40); Albumin 2.7 g/dL (3.2-4.8); Alkaline Phosphatase 88 U/L (46-116); Anion Gap 4 (5-15); Aspartate Aminotransferase 22 U/L (13-40); BUN/Creatinine Ratio 17.3 (10.0-20.0); Bilirubin, Total 0.2 mg/dL (0.2-1.0); Blood Urea Nitrogen 22 mg/dL (9-23); Calcium 8.4 mg/dL (8.5-10.1); Carbon Dioxide 27 mmol/L (20-30); Chloride 105 mmol/L (98-107); Glucose 91 mg/dL (74-106); Magnesium 1.7 mg/dL (1.6-2.6); Potassium 3.5 mmol/L (3.5-5.1); Sodium 136 mmol/L (136-145); Total Protein 5.8 g/dL (5.7-8.2)
[2023-08-22] MEDS ORDERED: VANCOMYCIN 1GM/200ML 200 ML IV SCH (17:45)
[2023-08-22] MEDS: VANCOMYCIN 1GM/200ML 200 ML IV SCH (22:35)
[2023-08-23] VITALS (12 sets, daily range): BP systolic 97–175; BP diastolic 50–89; PULSE 61–111; RESP 16–18; TEMP 97.7–98.4; O2SAT 93–100
[2023-08-23 16:21] LABS: Hematocrit 32.4 % (41.0-53.0); Hemoglobin 10.9 g/dL (13.5-17.5)
[2023-08-24] VITALS (8 sets, daily range): BP systolic 119–175; BP diastolic 62–93; PULSE 69–78; RESP 12–19; TEMP 98–98.5; O2SAT 95–100
[2023-08-24 06:13] LABS: Potassium 3.7 mmol/L (3.5-5.1)
[2023-08-24 06:14] LABS: Calcium 8.5 mg/dL (8.5-10.1)
[2023-08-24 06:19] LABS: BUN/Creatinine Ratio 17.4 (10.0-20.0)
[2023-08-24 06:20] LABS: Albumin 2.8 g/dL (3.2-4.8)
[2023-08-24 06:21] LABS: Phosphorus 3.9 mg/dL (2.4-5.1)
[2023-08-24 11:37] LABS: Basophils # (auto) 0.1 10 ^3/uL (0-0.2); Basophils % (auto) 1.6 % (0.0-2.0); Eosinophils # (auto) 0.8 10 ^3/uL (0-0.8); Eosinophils % (auto) 9.7 % (0.0-7.0); Hematocrit 30.9 % (41.0-53.0); Hemoglobin 10.3 g/dL (13.5-17.5); Lymphocytes # (auto) 1.3 10 ^3/uL (0.4-5.4); Lymphocytes % (auto) 15.2 % (10.0-50.0); Mean Corpuscular Hemoglobin 29.6 pg (28.0-32.0); Mean Corpuscular Hgb Conc. 33.2 g/dL (32.0-36.0); Mean Corpuscular Volume 89.1 fL (80.0-100.0); Monocytes # (auto) 0.8 10 ^3/uL (0-1.3); Neutrophils # (auto) 5.6 10 ^3/uL (1.6-8.6); Neutrophils % (auto) 64.5 % (37.0-80.0); Nucleated Red Blood Cells % 0.1 %; Red Blood Cells 3.47 10^6/uL (4.5-5.90); Red Cell Distribution Width 15.5 % (11.8-14.3); White Blood Cell 8.7 10^3/uL (4.4-10.8)
[2023-08-24] MEDS: VANCOMYCIN 1GM/200ML 200 ML IV SCH (18:01)
[2023-08-25] VITALS (8 sets, daily range): BP systolic 142–174; BP diastolic 69–93; PULSE 63–85; RESP 17–20; TEMP 97.4–98.6; O2SAT 95–100
[2023-08-25 06:00] LABS: Basophils # (auto) 0.2 10 ^3/uL (0-0.2); Basophils % (auto) 1.8 % (0.0-2.0); Eosinophils % (auto) 10.5 % (0.0-7.0); Hematocrit 31.9 % (41.0-53.0); Hemoglobin 10.8 g/dL (13.5-17.5); Lymphocytes # (auto) 1.8 10 ^3/uL (0.4-5.4); Lymphocytes % (auto) 19.8 % (10.0-50.0); Mean Corpuscular Hemoglobin 29.3 pg (28.0-32.0); Mean Corpuscular Hgb Conc. 33.7 g/dL (32.0-36.0); Mean Corpuscular Volume 87.1 fL (80.0-100.0); Monocytes # (auto) 0.8 10 ^3/uL (0-1.3); Monocytes % (auto) 8.7 % (0.0-12.0); Neutrophils # (auto) 5.4 10 ^3/uL (1.6-8.6); Neutrophils % (auto) 59.2 % (37.0-80.0); Red Blood Cells 3.67 10^6/uL (4.5-5.90); Red Cell Distribution Width 15.1 % (11.8-14.3); White Blood Cell 9.1 10^3/uL (4.4-10.8)
[2023-08-25] MEDS: HYDROcodone-ACET 5/325MG TAB PO PRN (16:37)
[2023-08-26] VITALS (10 sets, daily range): BP systolic 130–164; BP diastolic 67–90; PULSE 62–78; RESP 14–20; TEMP 97.4–98.5; O2SAT 93–100
[2023-08-26] MEDS: ceFAZolin 2 GM/D5W50ml 50 ML IV ONE (18:43)
[2023-08-26] MEDS ORDERED: MIDAZOLAM HCL 2MG/2ML 2ml VIAL (1mg/ml) ONE (19:10)
[2023-08-26] MEDS ORDERED: fentaNYL CITRATE 100 MCG/2 ML VL ONE (19:10)
[2023-08-26] MEDS ORDERED: fentaNYL CITRATE 5 ML ONE (19:14)
[2023-08-26] MEDS ORDERED: ROCURONIUM 10MG/ML 10ML VIAL IV ONE (19:16)
[2023-08-26] MEDS: TRANEXAMIC ACID 20 ML ONE (19:31)
[2023-08-26] MEDS ORDERED: ONDANSETRON HCL 4 MG/2 ML VIAL ONE (19:50)
[2023-08-26] MEDS ORDERED: PROPOFOL 10 MG/ML 20 ML IV ONE (19:56)
[2023-08-26] MEDS ORDERED: LIDOCAINE 2% (LOCAL ANESTH.) PF 5ml SDV ONE (20:08)
[2023-08-26] MEDS: BACITRACIN TOP OINT 1 UD PKG TOP ONE (21:46)
[2023-08-26] MEDS ORDERED: CARISOPRODOL 350 MG TAB PO SCH ×2 (22:00)
[2023-08-26] MEDS: HYDROmorphone HCL 2 MG/ML VL/or syr IV PRN (22:30)
[2023-08-26] MEDS: HYDROmorphone HCL 2 MG/ML VL/or syr ONE (22:36)
[2023-08-26] MEDS ORDERED: HYDROmorphone HCL 2 MG/ML VL/or syr IV PRN (22:45)
[2023-08-26] MEDS: ONDANSETRON HCL 4 MG/2 ML VIAL IV ONE (23:38)
[2023-08-27] VITALS (9 sets, daily range): BP systolic 91–151; BP diastolic 57–78; PULSE 64–101; RESP 16–20; TEMP 97.9–98.7; O2SAT 93–97
[2023-08-27 06:56] LABS: Basophils # (auto) 0.1 10 ^3/uL (0-0.2); Basophils % (auto) 1.4 % (0.0-2.0); Eosinophils # (auto) 0.6 10 ^3/uL (0-0.8); Eosinophils % (auto) 6.1 % (0.0-7.0); Hematocrit 29.7 % (41.0-53.0); Hemoglobin 9.8 g/dL (13.5-17.5); Lymphocytes # (auto) 1.2 10 ^3/uL (0.4-5.4); Lymphocytes % (auto) 13.2 % (10.0-50.0); Mean Corpuscular Hemoglobin 29.5 pg (28.0-32.0); Mean Corpuscular Hgb Conc. 33.2 g/dL (32.0-36.0); Mean Corpuscular Volume 89.1 fL (80.0-100.0); Monocytes # (auto) 0.7 10 ^3/uL (0-1.3); Monocytes % (auto) 7.9 % (0.0-12.0); Neutrophils # (auto) 6.7 10 ^3/uL (1.6-8.6); Neutrophils % (auto) 71.4 % (37.0-80.0); Red Blood Cells 3.33 10^6/uL (4.5-5.90); Red Cell Distribution Width 15.2 % (11.8-14.3); White Blood Cell 9.4 10^3/uL (4.4-10.8)
[2023-08-27] MEDS: FUROSEMIDE 40 MG TAB PO SCH (09:34)
[2023-08-27] MEDS: ASPirin-EC 81 mg tab PO SCH (09:35)
[2023-08-27] MEDS: ATORVASTATIN 20 MG TAB PO SCH (09:47)
[2023-08-27] MEDS ORDERED: ASPirin-EC 81 mg tab PO SCH (10:00)
[2023-08-27] MEDS ORDERED: ATORVASTATIN 20 MG TAB PO SCH (10:00)
[2023-08-27] MEDS ORDERED: FUROSEMIDE 40 MG TAB PO SCH (10:00)
[2023-08-27] MEDS: HYDROmorphone HCL 2 MG/ML VL/or syr IV PRN (14:45)
[2023-08-28] VITALS (7 sets, daily range): BP systolic 102–161; BP diastolic 59–79; PULSE 65–76; RESP 17–20; TEMP 97.9–99.1; O2SAT 95–99
[2023-08-28 06:02] LABS: Basophils # (auto) 0.2 10 ^3/uL (0-0.2); Basophils % (auto) 2.1 % (0.0-2.0); Eosinophils % (auto) 9.9 % (0.0-7.0); Hematocrit 30.7 % (41.0-53.0); Hemoglobin 9.9 g/dL (13.5-17.5); Lymphocytes % (auto) 20.3 % (10.0-50.0); Mean Corpuscular Hemoglobin 28.6 pg (28.0-32.0); Mean Corpuscular Hgb Conc. 32.3 g/dL (32.0-36.0); Mean Corpuscular Volume 88.5 fL (80.0-100.0); Monocytes # (auto) 0.8 10 ^3/uL (0-1.3); Monocytes % (auto) 8.5 % (0.0-12.0); Neutrophils # (auto) 5.9 10 ^3/uL (1.6-8.6); Neutrophils % (auto) 59.2 % (37.0-80.0); Red Blood Cells 3.47 10^6/uL (4.5-5.90); Red Cell Distribution Width 15.5 % (11.8-14.3); White Blood Cell 9.9 10^3/uL (4.4-10.8)
[2023-08-28] MEDS: Juven Orange Powder PACKET 27.5gm PO SCH (22:14)
[2023-08-29 05:00] VITALS: BP 125/68; PULSE 73; RESP 20; TEMP 98.6; O2SAT 97
[2023-08-29 08:00] VITALS: PULSE 65; RESP 16; O2SAT 96
[2023-08-29 09:00] VITALS: BP 142/73; PULSE 65; RESP 14; TEMP 98.2; O2SAT 96
[2023-08-29 13:00] VITALS: BP 131/73; PULSE 65; RESP 14; TEMP 98.6; O2SAT 97
[2023-08-29 17:00] VITALS: BP 133/71; PULSE 77; RESP 14; TEMP 98.6; O2SAT 93
[2023-08-29 21:00] VITALS: BP 146/90; PULSE 69; RESP 18; TEMP 99.2; O2SAT 100
[2023-08-30] VITALS (7 sets, daily range): BP systolic 131–173; BP diastolic 70–83; PULSE 68–86; RESP 14–18; TEMP 97.6–98.7; O2SAT 97–100
[2023-08-30 06:56] LABS: Basophils # (auto) 0.1 10 ^3/uL (0-0.2); Basophils % (auto) 1.2 % (0.0-2.0); Eosinophils % (auto) 10.3 % (0.0-7.0); Hematocrit 31.3 % (41.0-53.0); Hemoglobin 10.4 g/dL (13.5-17.5); Lymphocytes # (auto) 1.6 10 ^3/uL (0.4-5.4); Lymphocytes % (auto) 16.7 % (10.0-50.0); Mean Corpuscular Hemoglobin 29.4 pg (28.0-32.0); Mean Corpuscular Hgb Conc. 33.4 g/dL (32.0-36.0); Mean Corpuscular Volume 88.1 fL (80.0-100.0); Monocytes # (auto) 0.6 10 ^3/uL (0-1.3); Monocytes % (auto) 6.9 % (0.0-12.0); Neutrophils % (auto) 64.9 % (37.0-80.0); Red Blood Cells 3.55 10^6/uL (4.5-5.90); Red Cell Distribution Width 14.9 % (11.8-14.3); White Blood Cell 9.3 10^3/uL (4.4-10.8)
[2023-08-30] MEDS: VANCOMYCIN 1GM/200ML 200 ML IV SCH (18:13)
[2023-08-31 01:00] VITALS: BP 143/80; PULSE 71; RESP 17; TEMP 98.4; O2SAT 99
[2023-08-31 05:00] VITALS: BP 121/68; PULSE 72; RESP 18; TEMP 98.2; O2SAT 96
[2023-08-31 08:03] VITALS: BP 94/52; PULSE 64; RESP 18; TEMP 97.8; O2SAT 96
[2023-08-31 08:15] VITALS: PULSE 72; RESP 16
[2023-08-31] MEDS ORDERED: VANCOMYCIN PER PHARMACY 0 MG IV SCH (12:45)
[2023-08-31] MEDS: CARISOPRODOL 350 MG TAB PO SCH (14:00)
[2023-08-31] MEDS: VANCOMYCIN 1GM/200ML 200 ML IV SCH (16:04)
[2023-08-31 21:00] VITALS: BP 145/76; PULSE 74; RESP 20; TEMP 98.3; O2SAT 98
[2023-09-01] VITALS (8 sets, daily range): BP systolic 127–160; BP diastolic 71–89; PULSE 68–82; RESP 16–20; TEMP 98.4–99; O2SAT 91–100
[2023-09-02] VITALS (7 sets, daily range): BP systolic 106–147; BP diastolic 65–73; PULSE 57–70; RESP 16–20; TEMP 97.8–98.8; O2SAT 90–100
[2023-09-02] MEDS: VANCOMYCIN 1GM/200ML 200 ML IV SCH (22:14)
[2023-09-03] VITALS (7 sets, daily range): BP systolic 110–143; BP diastolic 55–81; PULSE 61–69; RESP 16–18; TEMP 98–99.2; O2SAT 96–98
[2023-09-03 07:00] LABS: Basophils # (auto) 0.2 10 ^3/uL (0-0.2); Basophils % (auto) 2.1 % (0.0-2.0); Eosinophils # (auto) 1.2 10 ^3/uL (0-0.8); Eosinophils % (auto) 14.6 % (0.0-7.0); Hematocrit 31.6 % (41.0-53.0); Hemoglobin 10.5 g/dL (13.5-17.5); Lymphocytes # (auto) 1.7 10 ^3/uL (0.4-5.4); Lymphocytes % (auto) 21.1 % (10.0-50.0); Mean Corpuscular Hemoglobin 29.2 pg (28.0-32.0); Mean Corpuscular Hgb Conc. 33.3 g/dL (32.0-36.0); Mean Corpuscular Volume 87.8 fL (80.0-100.0); Monocytes # (auto) 0.5 10 ^3/uL (0-1.3); Monocytes % (auto) 6.2 % (0.0-12.0); Neutrophils # (auto) 4.4 10 ^3/uL (1.6-8.6); Nucleated Red Blood Cells % 0.1 %; Red Cell Distribution Width 14.7 % (11.8-14.3); White Blood Cell 7.9 10^3/uL (4.4-10.8)
[2023-09-04 01:00] VITALS: BP 107/65; PULSE 64; RESP 17; TEMP 97.7; O2SAT 97
[2023-09-04 05:00] VITALS: BP 127/77; PULSE 60; RESP 17; TEMP 97.6; O2SAT 97
[2023-09-04 07:12] LABS: Hematocrit 32.4 % (41.0-53.0); Hemoglobin 10.8 g/dL (13.5-17.5); Mean Corpuscular Hemoglobin 29.2 pg (28.0-32.0); Mean Corpuscular Hgb Conc. 33.3 g/dL (32.0-36.0); Mean Corpuscular Volume 87.8 fL (80.0-100.0); Red Blood Cells 3.69 10^6/uL (4.5-5.90); Red Cell Distribution Width 14.7 % (11.8-14.3); White Blood Cell 8.5 10^3/uL (4.4-10.8)
[2023-09-04 07:16] LABS: Band Neutrophils % (manual) 0; Basophils % (manual) 0 (0.0-2.0); Blast Cells 0; Metamyelocytes % 0; Myelocytes % 0; Promyelocytes % 0; Reactive Lymphocytes 0
[2023-09-04 08:27] LABS: Eosinophils % (manual) 29 (0-7); Lymphocytes % (manual) 21 (10.0-50.0); Monocytes % (manual) 3 (0-12); Platelet Estimate Adequate
[2023-09-04 08:40] VITALS: BP 103/52; PULSE 61; RESP 18; TEMP 97.8; O2SAT 95
[2023-09-04 13:00] VITALS: BP 102/58; PULSE 61; RESP 18; TEMP 98.2; O2SAT 96
[2023-09-04 16:48] VITALS: BP 132/73; PULSE 77; RESP 18; TEMP 97.7; O2SAT 96
[2023-09-04 17:44] VITALS: BP 133/70; PULSE 71; RESP 18
== END 2023-09-04 18:29 | DRG 305 ==
LOC: EDBD 15:36 → ER 15:36 → TELE 08-05 06:07 → TELE-CENTR 08-05 11:49 → CENTRAL 08-27 06:42
PROVIDERS: ADMIT Internal Medicine; ATTEND Family Medicine
PROC: 30233N1 Transfusion of Nonautologous Red Blood Cells into Peripheral Vein, Percutaneous Approach (ICD-10-PCS; 2023-08-08)
PROC: 0Y6N0ZD Detachment at Left Foot, Partial 4th Ray, Open Approach (ICD-10-PCS; principal; 2023-08-13 09:50)
PROC: 0DB38ZX Excision of Lower Esophagus, Via Natural or Artificial Opening Endoscopic, Diagnostic (ICD-10-PCS; 2023-08-20)
PROC: 0DB88ZX Excision of Small Intestine, Via Natural or Artificial Opening Endoscopic, Diagnostic (ICD-10-PCS; 2023-08-20)
PROC: 0DB68ZX Excision of Stomach, Via Natural or Artificial Opening Endoscopic, Diagnostic (ICD-10-PCS; 2023-08-20)
PROC: 0SP004Z Removal of Internal Fixation Device from Lumbar Vertebral Joint, Open Approach (ICD-10-PCS; 2023-08-26)
PROC: 0JBC0ZZ Excision of Pelvic Region Subcutaneous Tissue and Fascia, Open Approach (ICD-10-PCS; 2023-08-26)
PROC: 0QB00ZZ Excision of Lumbar Vertebra, Open Approach (ICD-10-PCS; 2023-08-26)
DX: E11.69 Type 2 diabetes mellitus with other specified complication (principal); J96.01 Acute respiratory failure with hypoxia; K25.4 Chronic or unspecified gastric ulcer with hemorrhage; E44.0 Moderate protein-calorie malnutrition; K22.11 Ulcer of esophagus with bleeding; T84.59XA Infection and inflammatory reaction due to other internal joint prosthesis, initial encounter; M46.26 Osteomyelitis of vertebra, lumbar region; D62 Acute posthemorrhagic anemia; L03.116 Cellulitis of left lower limb; L97.529 Non-pressure chronic ulcer of other part of left foot with unspecified severity; M86.8X7 Other osteomyelitis, ankle and foot; M13.872 Other specified arthritis, left ankle and foot; K44.9 Diaphragmatic hernia without obstruction or gangrene; M20.12 Hallux valgus (acquired), left foot; E11.621 Type 2 diabetes mellitus with foot ulcer; M46.46 Discitis, unspecified, lumbar region; E78.5 Hyperlipidemia, unspecified; E87.5 Hyperkalemia; G89.29 Other chronic pain; I10 Essential (primary) hypertension; G89.18 Other acute postprocedural pain; E11.43 Type 2 diabetes mellitus with diabetic autonomic (poly)neuropathy; K31.84 Gastroparesis; Z83.3 Family history of diabetes mellitus; Z79.4 Long term (current) use of insulin; Z98.84 Bariatric surgery status; Z68.31 Body mass index [BMI] 31.0-31.9, adult; Y84.8 Other medical procedures as the cause of abnormal reaction of the patient, or of later complication, without mention of misadventure at the time of the procedure; Y92.89 Other specified places as the place of occurrence of the external cause
CPT/HCPCS: 36415; 70450; 72100; 72128; 72131; 72148; 73718; 76000; 80048; 80053; 80061; 80069; 80202; 81001; 82270; 82565; 82607; 82746; 82962; 83735; 84439; 84443; 84481; 85007; 85014; 85018; 85025; 85027; 85379; 85610; 85730; 86803; 86850; 86900; 86901; 86920; 87040; 87070; 87075; 87081; 87086; 87205; 87340; 93005; 93306; 93886; 96374; 96375; 96376; 97110; 97163; 97530; C9113; G0378; J1815; J2001; J2250; J2405; J2704; J3480; J3490